=== PATIENT | male | born 1960 | race Caucasian/White ===

== ENCOUNTER 2016-10-30 08:34 | Observation (INO) | payer MEDICAID ==
[2016-10-30] MEDS ORDERED: FUROSEMIDE 40 MG/4 ML VIAL IVP STA (09:25)
[2016-10-30] MEDS ORDERED: FUROSEMIDE 40 MG/4 ML VIAL ONE (09:32)
[2016-10-30] MEDS ORDERED: IOPAMIDOL-300 100 ML VIAL IVP ONE (11:06)
[2016-10-30] MEDS ORDERED: ACETAMINOPHEN 325 MG TABLET PO PRN (13:54)
[2016-10-30] MEDS ORDERED: ONDANSETRON ODT 4 MG TABLET TL PRN (13:54)
[2016-10-30] MEDS ORDERED: ONDANSETRON 4 MG/2 ML VIAL IVP PRN (13:54)
[2016-10-30] MEDS: PANTOPRAZOLE 40 MG TABLET PO SCH (15:29)
[2016-10-30] MEDS: SODIUM CHLORIDE FLUSH 0.9% 10 ML SYRINGE IVP SCH ×2 (15:29→21:36)
[2016-10-30] MEDS: FUROSEMIDE 20 MG/2 ML VIAL IVP SCH (21:36)
[2016-10-30] MEDS: SPIRONOLACTONE 25 MG TABLET PO SCH (21:36)
[2016-10-31] MEDS: SODIUM CHLORIDE FLUSH 0.9% 10 ML SYRINGE IVP SCH ×3 (05:32→20:37)
[2016-10-31] MEDS: PANTOPRAZOLE 40 MG TABLET PO SCH (06:11)
[2016-10-31] MEDS: NADOLOL 20 MG TABLET PO SCH (08:31)
[2016-10-31] MEDS: POLYETHYLENE GLYCOL 3350 17 GM PACKET PO SCH (08:31)
[2016-10-31] MEDS: FUROSEMIDE 20 MG/2 ML VIAL IVP SCH ×2 (08:31→20:37)
[2016-10-31] MEDS: SPIRONOLACTONE 25 MG TABLET PO SCH ×2 (08:32→20:37)
[2016-10-31] MEDS: SODIUM CHLORIDE FLUSH 0.9% 10 ML SYRINGE IVP PRN (08:32)
[2016-10-31] MEDS: MORPHINE 2 MG/ML SYRINGE IVP PRN (21:53)
[2016-10-31] MEDS: HYDROcod/ACETAM 5/325 MG TABLET PO PRN (23:54)
[2016-11-01] MEDS: MORPHINE 2 MG/ML SYRINGE IVP PRN (02:17)
[2016-11-01] MEDS: SODIUM CHLORIDE FLUSH 0.9% 10 ML SYRINGE IVP PRN (02:18)
[2016-11-01] MEDS: SODIUM CHLORIDE FLUSH 0.9% 10 ML SYRINGE IVP SCH ×2 (06:02→08:20)
[2016-11-01] MEDS: HYDROcod/ACETAM 5/325 MG TABLET PO PRN (06:03)
[2016-11-01] MEDS: PANTOPRAZOLE 40 MG TABLET PO SCH (07:23)
[2016-11-01] MEDS: NADOLOL 20 MG TABLET PO SCH (08:18)
[2016-11-01] MEDS: SPIRONOLACTONE 25 MG TABLET PO SCH (08:19)
[2016-11-01] MEDS: FUROSEMIDE 20 MG/2 ML VIAL IVP SCH (08:20)
[2016-11-01] MEDS: POLYETHYLENE GLYCOL 3350 17 GM PACKET PO SCH (08:23)
== END 2016-11-01 09:40 | disposition home or self-care (01) ==
DX: R55 Syncope and collapse (principal); D50.0 Iron deficiency anemia secondary to blood loss (chronic); K70.31 Alcoholic cirrhosis of liver with ascites; I85.10 Secondary esophageal varices without bleeding; B19.20 Unspecified viral hepatitis C without hepatic coma; F10.20 Alcohol dependence, uncomplicated; I11.9 Hypertensive heart disease without heart failure; S80.11XD Contusion of right lower leg, subsequent encounter; V49.9XXD Car occupant (driver) (passenger) injured in unspecified traffic accident, subsequent encounter; E78.5 Hyperlipidemia, unspecified; M47.892 Other spondylosis, cervical region; F17.210 Nicotine dependence, cigarettes, uncomplicated; K40.90 Unilateral inguinal hernia, without obstruction or gangrene, not specified as recurrent; K42.9 Umbilical hernia without obstruction or gangrene; K57.30 Diverticulosis of large intestine without perforation or abscess without bleeding; Z79.899 Other long term (current) drug therapy
CPT/HCPCS: 36415; 36430; 71020; 74177; 80048; 80053; 83690; 83735; 83880; 84484; 85025; 85610; 85730; 86850; 86900; 86901; 86920; 93005; 93010; 93308; 96374; 96375; 96376; 99284; 99285; A9270; G0378; P9016; Q9967

== ENCOUNTER 2016-12-18 09:50 | Outpatient (CLI) | payer MEDICAID | END 2016-12-18 09:51 | disposition home or self-care (01) | DX: B19.20 Unspecified viral hepatitis C without hepatic coma (principal); I10 Essential (primary) hypertension; R60.0 Localized edema ==

== ENCOUNTER 2017-02-12 09:20 | Day surgery (SDC) | payer MEDICAID ==
[~2017-02-12 09:20] MED LIST: LACTATED RINGERS 1,000 ML IV ONE
--- NOTE | 2017-02-12 10:29 | HISTORY & PHYSICAL EXAMINATION ---
HPI - History of Present Illness HPI Comment/Other: Jero is here in consultation for screening colonoscopy. He has never had a prior colonoscopy. He has regular bowel movements and denies constipation or diarrhea. He had an episode of hematemesis and dark stools in 2014 and an upper endoscopy demonstrated bleeding esophageal varices. He was subsequently transferred to [facility]. He has not had a recurrance since but does continue to drink a 6 pack of beer daily and 2-4 shots of liquor 3-4 times per week. His lab work also demonstrated anemia with an H&H of 12 of her 37. He has never undergone alcohol withdrawal. He has no family history of colon cancer or colonic polyps. He also states he has a right inguinal hernia which is bothering him and has an umbilical hernia which occasionally pops out. Of note the patient does have hepatitis C and is not receiving treatment at this time as he is an active drinker. His most recent LFTs demonstrate mild transaminitis with a slightly elevated bilirubin. INR performed in October was 1.4. His MELD score is 11. He has no documented ascites and has never undergone paracentesis. Past Medical History: Reviewed history from 11/22/2016 and no changes required: Right inguinal hernia mild Hypertension. Hepatitis C Jax use. GERD. Cirrhosis. Esophageal varices Strrep pphargitis Tobacco COPD Past Surgical History: Reviewed history from 09/25/2016 and no changes required: Cervical fusion Family History Summary: Reviewed history Last on 12/21/2016 and no changes required:01/09/2017 Father (biol.) - Has Family History of Arthritis - Entered On: 09/25/2016 Father (biol.) - Has Family History of Diabetes - Entered On: 09/25/2016 Social History: Reviewed history from 12/21/2016 and no changes required: Alcohol Use - yes Smoking History: Patient is a former smoker. Quit 3-1/2 weeks ago Risk Factors: Smoked Tobacco Use: Former smoker Cigarettes: Yes -- 5 cigs pack(s) per day, Years smoked: 30 Smokeless Tobacco Use: Never Passive smoke exposure: no Drug use: no HIV high-risk behavior: no Caffeine use: 1 drinks per day Alcohol use: yes Type: beer Drinks per day: 4 Exercise: no Seatbelt use: 100 % Sun Exposure: occasionally Family History Risk Factors: Family History of FL in females < 65 years old: no Family History of FL in males < 55 years old: no Review of Systems See HPI Physical Exam General: well developed, well nourished, in no acute distress Lungs: clear bilaterally to A & P Heart: regular rate and rhythm, S1, S2 without murmurs, rubs, gallops, or clicks Abdomen: Protuberant. Moderate sized umbilical hernia is present and easily reducible. Genitalia: Fullness of right groin without obvious herniation palpable upon Valsalva. He does have tenderness of the area. Pulses: pulses normal in all 4 extremities Extremities: no clubbing, cyanosis, edema, or deformity noted with normal full range of motion of all joints Cervical Nodes: no significant adenopathy Psych: alert and cooperative; normal mood and affect; normal attention span and concentration Problems: Problems Added: 1) Dx of Screening, colon cancer ([id number]) (ICD-V76.51) Impression & Recommendations: Problem # 1: Screening for colon cancer I have explained the colonoscopy procedure to the patient in detail and the risks involved, including but not limited to bleeding, perforated viscus and missing lesions. The patient understands the above and has agreed to proceed with the procedure. Problem # 2: Tobacco use Patient counseled on smoking cessation however at this time he is unwilling to quit smoking. He has cut back. Problem # 3: Alcohol abuse Patient counseled on alcohol avoidance especially in the setting of his liver failure. He states he has cut back to some degree but is unwilling to quit drinking altogether. Problem # 4: Inguinal hernia Given his comorbidities I would not recommend pursuing any treatment for a possible inguinal hernia. On examination unable to palpate an obvious hernia and further imaging will be warranted if surgical intervention is necessary. At this time the hernia is not bothering him too much and I have recommended conservative management for such. Problem # 5: Umbilical hernia The patient does have a moderate sized umbilical hernia. If his liver failure advance is and ascites develops this can be problematic and is in the patient's best interest to have this repaired prior to development of complications from liver failure. I indicated to the patient that this can be discussed in further detail after his colonoscopy. PMH/PSH - Past Medical History Cardiovascular: positive: Hypertension Respiratory: positive: None Neuro: positive: None Endocrine/Autoimmune: positive: None GI: positive: None, Hepatitis : positive: None HEENT: positive: None Psych: positive: None Musculoskeletal: positive: None Derm: positive: None MRSA Hx?: No - Past Surgical History Ortho: positive: Carpal Tunnel surgery, Other Social & Family Hx - Social History Does the pt smoke?: Yes Smoking Status: Current every day smoker Does the pt drink ETOH?: Yes Does the pt have substance abuse?: No - POLST Patient has POLST: No Meds/Allgy - Home Medications Home Medications: Ambulatory Orders Medication Instructions Recorded Confirmed amLODIPine [Norvasc] 5 mg PO DAILY 10/30/16 02/12/17 Multivitamin [Multivitamins] 1 cap PO DAILY 10/31/16 02/12/17 Nadolol 40 mg PO DAILY 10/31/16 02/12/17 Omeprazole [PriLOSEC] 20 mg PO QDAC 10/31/16 02/12/17 Furosemide [Lasix] 40 mg PO DAILY #30 tablet 11/01/16 02/12/17 Spironolactone [Aldactone] 50 mg PO BID #60 tablet 11/01/16 02/12/17 - Allergies Allergies/Adverse Reactions: Allergies Allergy/AdvReac Type Severity Reaction Status Date / Time No Known Drug Allergies Allergy Verified 01/15/15 19:27 Exam - Vital Signs Vital Signs: Vital Signs x48h Temp Pulse Resp BP Pulse Ox 02/12/17 09:35 37 C 50 L 16 120/77 97
[2017-02-12] MEDS ORDERED: fentaNYL 100 MCG/2 ML VIAL IVP ONE (11:05)
[2017-02-12] MEDS ORDERED: MIDAZOLAM 2 MG/2 ML VIAL IVP ONE (11:05)
[2017-02-12 12:05] VITALS: BP 122/77
== END 2017-02-12 09:21 | disposition home or self-care (01) ==
LOC: SDS 09:20
PROVIDERS: ATTEND Surgery
PROC: 0DJD8ZZ Inspection of Lower Intestinal Tract, Via Natural or Artificial Opening Endoscopic (ICD-10-PCS; principal; 2017-02-12 10:30)
DX: Z12.11 Encounter for screening for malignant neoplasm of colon (principal); K64.8 Other hemorrhoids; D64.9 Anemia, unspecified; K40.90 Unilateral inguinal hernia, without obstruction or gangrene, not specified as recurrent; K42.9 Umbilical hernia without obstruction or gangrene; B19.20 Unspecified viral hepatitis C without hepatic coma; K74.60 Unspecified cirrhosis of liver; F17.210 Nicotine dependence, cigarettes, uncomplicated; F10.10 Alcohol abuse, uncomplicated; I10 Essential (primary) hypertension; K72.90 Hepatic failure, unspecified without coma; Z98.1 Arthrodesis status; Z82.61 Family history of arthritis; Z83.3 Family history of diabetes mellitus
CPT/HCPCS: 45378; J7120

== ENCOUNTER 2017-03-14 16:35 | Emergency (ER) | payer MEDICAID ==
[2017-03-14] MEDS ORDERED: SODIUM CHLORIDE 0.9% 1,000 ML IV ONE (17:31)
[2017-03-14 17:53] LABS: BASOPHILS # (AUTO) 0.1 10^3/uL (0.0-0.1); BASOPHILS % (AUTO) 1.4 %; EOSINOPHILS # (AUTO) 0.2 10^3/uL (0.0-0.7); EOSINOPHILS % (AUTO) 3.7 %; HCT - HEMATOCRIT 34.4 % (42.0-52.0); HGB - HEMOGLOBIN 11.5 g/dL (14.0-18.0); LYMPHOCYTES # (AUTO) 0.9 10^3/uL (1.5-3.5); MEAN CORPUSCULAR HEMOGLOBIN 30.3 pg (27.0-31.0); MEAN CORPUSCULAR HGB CONC 33.4 g/dL (32.0-36.0); MEAN CORPUSCULAR VOLUME 90.6 fL (80.0-94.0); MEAN PLATELET VOLUME 9.6 fL (7.4-11.4); MONOCYTES % (AUTO) 22.4 %; NEUTROPHILS # (AUTO) 2.4 10^3/uL (1.5-6.6); NEUTROPHILS % (AUTO) 52.5 %; NUCLEATED RED BLOOD CELLS AUTO 0.1 /100WBC; RED BLOOD COUNT 3.79 10^6/uL (4.70-6.10); RED CELL DISTRIBUTION WIDTH 17.7 % (12.0-15.0); UNCORRECTED WHITE BLOOD COUNT 4.5 x10^3/uL; WHITE BLOOD COUNT 4.5 x10^3/uL (4.8-10.8)
[2017-03-14 18:07] LABS: ALBUMIN/GLOBULIN RATIO 0.7 (1.0-2.2); BILIRUBIN,TOTAL 1.2 mg/dL (0.2-1.0); CALCIUM 8.5 mg/dL (8.5-10.3); CREATININE 0.6 mg/dL (0.6-1.2); INR 1.5 (0.8-1.2); POTASSIUM 3.8 mmol/L (3.5-5.0); PT - PROTHROMBIN TIME 16.7 secs (9.9-12.6); TOTAL PROTEIN 7.5 g/dL (6.7-8.2)
[2017-03-14 18:14] LABS: PARTIAL THROMBOPLASTIN TIME 34.1 secs (24.9-33.3)
--- NOTE | 2017-03-14 19:17 | ED Physician Documentation ---
PD HPI GI BLEED - Stated complaint Stated Complaint: MALE - Chief complaint Chief Complaint: Abd Pain - History obtained from History obtained from: Patient - History of Present Illness Timing - onset: Today Timing - duration: Days (1) Timing - details: Gradual onset Pain level max: 0 Pain level now: 0 Associated symptoms: Maroon stool, Black/tarry stool Contributing factors: No: Sick contact, Bad food, Travel, Recent antibiotics, Alcohol use, Aspirin use, NSAID use, Stress, Anticoagulated, Diabetes Improved by: Other (nothing) Worsened by: Other (nothing) Similar symptoms before: Other (history of esophageal varices.) Recently seen: Not recently seen Review of Systems Ten Systems: 10 systems reviewed and negative Constitutional: denies: Fever, Chills Ears: denies: Ear pain Nose: denies: Rhinorrhea / runny nose, Congestion Throat: denies: Sore throat Cardiac: denies: Chest pain / pressure Respiratory: denies: Cough GI: reports: Bloody / black stool. denies: Nausea, Vomiting, Diarrhea, Hematemesis : denies: Dysuria Skin: denies: Rash Musculoskeletal: denies: Neck pain, Back pain Neurologic: denies: Headache PD PAST MEDICAL HISTORY - Past Medical History Past Medical History: Yes Cardiovascular: Hypertension Respiratory: None Neuro: None Endocrine/Autoimmune: None GI: None, Esophageal varices, Hepatitis : None HEENT: None Psych: None Musculoskeletal: None Derm: None - Past Surgical History Past Surgical History: Yes Ortho: Carpal Tunnel surgery, Other - Present Medications Home Medications: Ambulatory Orders Medication Instructions Recorded Confirmed amLODIPine [Norvasc] 5 mg PO DAILY 10/30/16 03/14/17 Multivitamin [Multivitamins] 1 cap PO DAILY 10/31/16 03/14/17 Nadolol 40 mg PO DAILY 10/31/16 03/14/17 Omeprazole [PriLOSEC] 20 mg PO QDAC 10/31/16 03/14/17 - Allergies Allergies/Adverse Reactions: Allergies Allergy/AdvReac Type Severity Reaction Status Date / Time No Known Drug Allergies Allergy Verified 01/15/15 19:27 - Social History Does the pt smoke?: Yes Smoking Status: Current every day smoker Does the pt drink ETOH?: Yes Does the pt have substance abuse?: No - Immunizations Immunizations are current?: No - POLST Patient has POLST: No PD ED PE NORMAL - Vitals Vital signs reviewed: Yes - General General: Alert and oriented X 3, No acute distress, Well developed/nourished - HEENT HEENT: Moist mucous membranes, Pharynx benign - Neck Neck: Supple, no meningeal sign - Cardiac Cardiac: RRR, Strong equal pulses - Respiratory Respiratory: No respiratory distress, Clear bilaterally - Abdomen Abdomen: Soft, Non tender, Non distended - Rectal Rectal: Other (dark black stool. + hemoccult) - Derm Derm: Warm and dry - Extremities Extremities: No calf tenderness / cord - Neuro Neuro: Alert and oriented X 3 - Psych Psych: Normal mood, Normal affect Results - Vitals Vitals: Vital Signs - 24 hr 03/14/17 03/14/17 03/14/17 16:44 19:17 20:29 Temperature 36.8 C Heart Rate 108 H 81 72 Respiratory 20 17 16 Rate Blood Pressure 171/97 H 148/85 H 139/88 H O2 Saturation 98 97 98 03/14/17 03/14/17 03/14/17 21:28 21:40 21:43 Temperature 36.9 C 37.2 C Heart Rate 70 66 65 Respiratory 20 20 18 Rate Blood Pressure 145/91 H 145/88 H 140/91 H O2 Saturation 100 98 97 03/14/17 21:47 Temperature 37.1 C Heart Rate 65 Respiratory 18 Rate Blood Pressure 141/79 H O2 Saturation 97 Oxygen O2 Source Room air - Labs Labs: Laboratory Tests 03/14/17 03/14/17 03/14/17 17:37 17:37 17:37 WBC 4.5 L RBC 3.79 L Hgb 11.5 L Hct 34.4 L MCV 90.6 MCH 30.3 MCHC 33.4 RDW 17.7 H Plt Count 61 L MPV 9.6 Neut # 2.4 Lymph # 0.9 L [place] # 1.0 Eos # 0.2 Baso # 0.1 Absolute Nucleated RBC 0.00 Nucleated RBCs 0.1 PT 16.7 H INR 1.5 H APTT 34.1 H Sodium 138 Potassium 3.8 Chloride 107 Carbon Dioxide 23 Anion Gap 8.0 BUN 13 Creatinine 0.6 Estimated GFR (MDRD) 140 Glucose 92 Calcium 8.5 Total Bilirubin 1.2 H AST 138 H ALT 48 Alkaline Phosphatase 114 Total Protein 7.5 Albumin 3.0 L Globulin 4.5 H Albumin/Globulin Ratio 0.7 L Lipase 42 Blood Type Antibody Screen 03/14/17 17:37 WBC RBC Hgb Hct MCV MCH MCHC RDW Plt Count MPV Neut # Lymph # [place] # Eos # Baso # Absolute Nucleated RBC Nucleated RBCs PT INR APTT Sodium Potassium Chloride Carbon Dioxide Anion Gap BUN Creatinine Estimated GFR (MDRD) Glucose Calcium Total Bilirubin AST ALT Alkaline Phosphatase Total Protein Albumin Globulin Albumin/Globulin Ratio Lipase Blood Type A POSITIVE Antibody Screen NEGATIVE PD MEDICAL DECISION MAKING - ED course Complexity details: reviewed results, re-evaluated patient, considered differential, d/w patient, d/w telesales consultant ED course: 2039 - D/w GI Dr. Liudmila Newby who accepts in transfer. Recommends octreotide, rocephin, FFP. 2049 - Dr. German hospitalist who also accepts. Patient is a 56-year-old male who presents to the emergency department with a GI bleed, appears upper GI bleed likely variceal. Started on octreotide, given Protonix. Given Rocephin IV. Fresh frozen plasma 2 units transfused. No beds available at [facility] or at [facility]. Will transfer to [facility] in [place]. This document was made in part using voice recognition software. While efforts are made to proofread this document, sound alike and grammatical errors may occur. Departure - Departure Disposition: 02 Transfer Acute Care Hosp Clinical Impression: Alcoholism GI bleed Qualifiers: GI bleed type/associated pathology: unspecified gastrointestinal hemorrhage type Qualified Code(s): K92.2 - Gastrointestinal hemorrhage, unspecified Anemia Qualifiers: Anemia type: unspecified type Qualified Code(s): D64.9 - Anemia, unspecified Condition: Stable Discharge Date/Time: 03/14/17 22:46
[2017-03-14] MEDS ORDERED: OCTREOTIDE 500 MCG in SODIUM CHLORIDE 0.9% 100ML 95 ML IV STA (20:37)
[2017-03-14] MEDS ORDERED: PANTOPRAZOLE 40 MG VIAL IV STA (20:38)
[2017-03-14] MEDS ORDERED: cefTRIAXone 1 GM in SODIUM CHLORIDE 0.9% MINIBAG 100 ML IV STA (20:40)
[2017-03-14] MEDS ORDERED: PANTOPRAZOLE 40 MG VIAL ONE (20:46)
[2017-03-14] MEDS ORDERED: OCTREOTIDE 100 MCG/ML VIAL ONE (20:46)
[2017-03-14] MEDS ORDERED: cefTRIAXone 1 GM VIAL ONE (21:07)
[2017-03-14 21:48] VITALS: BP 141/79
== END 2017-03-14 22:46 | disposition short-term general hospital (02) ==
LOC: ED 16:35
DX: F10.20 Alcohol dependence, uncomplicated (principal); K92.2 Gastrointestinal hemorrhage, unspecified; D64.9 Anemia, unspecified; I10 Essential (primary) hypertension; K75.9 Inflammatory liver disease, unspecified; F17.200 Nicotine dependence, unspecified, uncomplicated
CPT/HCPCS: 36430; 80053; 83690; 85025; 85610; 85730; 86850; 86900; 86901; 96361; 96365; 96366; 96375; 99284; 99285; J2354; P9017

== ENCOUNTER 2017-03-14 22:06 | Outpatient (CLI) | payer MEDICAID | END 2017-03-14 22:07 | disposition short-term general hospital (02) | LOC: EMS 22:06 | PROVIDERS: ATTEND Surgery | DX: K92.2 Gastrointestinal hemorrhage, unspecified (principal) | CPT/HCPCS: A0425; A0426 ==

== ENCOUNTER 2017-04-25 09:02 | Outpatient (CLI) | payer MEDICAID ==
[2017-04-25 13:31] LABS: BASOPHILS # (AUTO) 0.1 10^3/uL (0.0-0.1); BASOPHILS % (AUTO) 1.8 %; EOSINOPHILS # (AUTO) 0.1 10^3/uL (0.0-0.7); EOSINOPHILS % (AUTO) 3.4 %; HCT - HEMATOCRIT 38.4 % (42.0-52.0); HGB - HEMOGLOBIN 12.7 g/dL (14.0-18.0); LYMPHOCYTES # (AUTO) 0.9 10^3/uL (1.5-3.5); LYMPHOCYTES % (AUTO) 21.6 %; MEAN CORPUSCULAR HEMOGLOBIN 29.7 pg (27.0-31.0); MEAN CORPUSCULAR VOLUME 90.1 fL (80.0-94.0); MEAN PLATELET VOLUME 10.7 fL (7.4-11.4); MONOCYTES # (AUTO) 0.7 10^3/uL (0.0-1.0); MONOCYTES % (AUTO) 17.5 %; NEUTROPHILS # (AUTO) 2.3 10^3/uL (1.5-6.6); NEUTROPHILS % (AUTO) 55.7 %; NUCLEATED RED BLOOD CELLS AUTO 0.2 /100WBC; RED BLOOD COUNT 4.26 10^6/uL (4.70-6.10); RED CELL DISTRIBUTION WIDTH 16.9 % (12.0-15.0); UNCORRECTED WHITE BLOOD COUNT 4.1 x10^3/uL; WHITE BLOOD COUNT 4.1 x10^3/uL (4.8-10.8)
[2017-04-25 13:36] LABS: INR 1.4 (0.8-1.2); PT - PROTHROMBIN TIME 15.3 secs (9.9-12.6)
[2017-04-25 13:50] LABS: ALBUMIN/GLOBULIN RATIO 0.7 (1.0-2.2); CALCIUM 8.5 mg/dL (8.5-10.3); CREATININE 0.7 mg/dL (0.6-1.2); POTASSIUM 4.1 mmol/L (3.5-5.0); TOTAL PROTEIN 7.9 g/dL (6.7-8.2)
== END 2017-04-25 09:03 | disposition home or self-care (01) ==
LOC: LAB.N 09:02
PROVIDERS: ATTEND Physician Assistant
DX: K70.31 Alcoholic cirrhosis of liver with ascites (principal)
CPT/HCPCS: 36415; 80053; 85025; 85610; 86317; 86708

== ENCOUNTER 2017-05-20 08:23 | Emergency (ER) | payer MEDICAID ==
--- NOTE | 2017-05-20 08:44 | ED Physician Documentation ---
PD HPI GI BLEED - Stated complaint Stated Complaint: MALE - Chief complaint Chief Complaint: Abd Pain - History obtained from History obtained from: Patient - History of Present Illness Timing - onset: Yesterday Timing - duration: Days (1) Timing - details: Gradual onset, Still present Associated symptoms: Maroon stool, Black/tarry stool Contributing factors: Alcohol use Improved by: Laying still Similar symptoms before: Diagnosis (varaceal bleeding) Recently seen: Transferred (2 months ago.) - Additional information Additional information: 56-year-old male with alcoholic cirrhosis and hepatitis C has a history of esophageal varices that have bled in the past. He developed dark tarry stool yesterday and this morning he has liquid maroon stool. He is not have any pain he has not had lightheadedness or dizziness. He has had variceal bleeding in February of this year requiring airlift to [place] and Dr. Melanie Newby has done banding as an outpatient on 05-09-17. The patient has continued to drink and he dose indicate he has been in treatment previously and this helped with sobriety for about 15 months. Review of Systems Constitutional: denies: Fever Eyes: denies: Decreased vision Ears: denies: Ear pain Nose: denies: Congestion Throat: denies: Sore throat Cardiac: denies: Chest pain / pressure, Palpitations Respiratory: denies: Dyspnea, Cough GI: reports: Bloody / black stool. denies: Abdominal Pain, Nausea, Vomiting, Constipation : denies: Dysuria, Frequency Skin: denies: Rash Musculoskeletal: denies: Neck pain, Back pain, Extremity pain PD PAST MEDICAL HISTORY - Past Medical History Past Medical History: Yes Cardiovascular: Hypertension Respiratory: None Neuro: None Endocrine/Autoimmune: None GI: None, Esophageal varices, Hepatitis : None HEENT: None Psych: None Musculoskeletal: None Derm: None - Past Surgical History Past Surgical History: Yes Ortho: Carpal Tunnel surgery, Other - Present Medications Home Medications: Ambulatory Orders Medication Instructions Recorded Confirmed amLODIPine [Norvasc] 5 mg PO DAILY 10/30/16 05/20/17 Multivitamin [Multivitamins] 1 cap PO DAILY 10/31/16 05/20/17 Nadolol 40 mg PO DAILY 10/31/16 05/20/17 Omeprazole [PriLOSEC] 20 mg PO QDAC 10/31/16 05/20/17 Sucralfate [Carafate] 05/20/17 - Allergies Allergies/Adverse Reactions: Allergies Allergy/AdvReac Type Severity Reaction Status Date / Time No Known Drug Allergies Allergy Verified 01/15/15 19:27 - Social History Does the pt smoke?: Yes Smoking Status: Current every day smoker Does the pt drink ETOH?: Yes Does the pt have substance abuse?: No - Immunizations Immunizations are current?: No - POLST Patient has POLST: No PD ED PE NORMAL - Vitals Vital signs reviewed: Yes (hypertensiev) - General General: Alert and oriented X 3, No acute distress, Well developed/nourished, Other (AOB) - HEENT HEENT: Atraumatic, PERRL - Neck Neck: Supple, no meningeal sign - Cardiac Cardiac: RRR, No murmur - Respiratory Respiratory: No respiratory distress, Clear bilaterally - Abdomen Abdomen: Soft, Non tender - Rectal Rectal: Other (rectal tone is normal stool is quiac +) - Back Back: No CVA TTP, No spinal TTP - Derm Derm: Normal color, Warm and dry, No rash - Extremities Extremities: No deformity, No edema - Neuro Neuro: Alert and oriented X 3, No motor deficit, No sensory deficit, Normal speech - Psych Psych: Normal mood, Normal affect Results - Vitals Vitals: Vital Signs - 24 hr 05/20/17 05/20/17 05/20/17 08:31 10:25 11:49 Temperature 37.0 C 37.1 C Heart Rate 73 63 61 Respiratory 18 13 16 Rate Blood Pressure 148/91 H 111/76 96/59 L O2 Saturation 97 97 95 Oxygen O2 Source Room air - Labs Labs: Laboratory Tests 05/20/17 05/20/17 05/20/17 09:04 09:04 09:04 WBC 4.1 L RBC 4.17 L Hgb 12.3 L Hct 36.8 L MCV 88.2 MCH 29.6 MCHC 33.5 RDW 18.1 H Plt Count 84 L MPV 9.6 Neut # 2.4 Lymph # 1.0 L [place] # 0.6 Eos # 0.1 Baso # 0.0 Absolute Nucleated RBC 0.00 Nucleated RBC % 0.1 PT 16.7 H INR 1.5 H Sodium 135 Potassium 4.0 Chloride 103 Carbon Dioxide 20 L Anion Gap 12.0 BUN 10 Creatinine 0.6 Estimated GFR (MDRD) 140 Glucose 159 H Calcium 8.5 Total Bilirubin 1.3 H AST 113 H ALT 47 Alkaline Phosphatase 83 Troponin I Total Protein 7.4 Albumin 3.0 L Globulin 4.4 H Albumin/Globulin Ratio 0.7 L Lipase 47 Ethyl Alcohol 22.6 Blood Type 05/20/17 05/20/17 09:04 09:16 WBC RBC Hgb Hct MCV MCH MCHC RDW Plt Count MPV Neut # Lymph # [place] # Eos # Baso # Absolute Nucleated RBC Nucleated RBC % PT INR Sodium Potassium Chloride Carbon Dioxide Anion Gap BUN Creatinine Estimated GFR (MDRD) Glucose Calcium Total Bilirubin AST ALT Alkaline Phosphatase Troponin I < 0.04 Total Protein Albumin Globulin Albumin/Globulin Ratio Lipase Ethyl Alcohol Blood Type A POSITIVE PD MEDICAL DECISION MAKING - ED course Complexity details: reviewed old records, reviewed results, re-evaluated patient , considered differential, d/w patient ED course: 56-year-old male with a history of alcoholic cirrhosis and variceal bleeding has presented to the emergency department today with black stool yesterday and maroon stool today. He does appear on initial evaluation to have a stable hematocrit and he is hemodynamically stable INR is 1.5. 2 IV lines are begun he is given intravenous Protonix and 1 unit of fresh frozen plasma. And an infusion of octreotide is begun.The patient will need transfer to a tertiary center and initially the certified medication technician at [facility] in [place] is consulted in the case after the case is reviewed with the cosmetologist apprentice who had previously scoped the patient they asked that we transfer this patient to a tertiary center as he may need a TIPS procedure. The [facility] was contacted they were boarding and unable to care for the patient expeditiously at this time and recommended to call [facility]. We did call [facility] and we were able to obtain a bed and the patient will be admitted under the care of Dr. Shirley Erazo. Departure - Departure Disposition: 02 Transfer Acute Care Hosp Clinical Impression: Esophageal varices with bleeding Qualifiers: Esophageal varices type: secondary Qualified Code(s): I85.11 - Secondary esophageal varices with bleeding Condition: Serious
[2017-05-20] MEDS ORDERED: PANTOPRAZOLE 40 MG VIAL IVP STA (08:54)
[2017-05-20] MEDS ORDERED: PANTOPRAZOLE 40 MG VIAL ONE (09:09)
[2017-05-20] MEDS ORDERED: SODIUM CHLORIDE FLUSH 0.9% 10 ML SYRINGE IVP ONE (09:10)
[2017-05-20 09:11] LABS: BASOPHILS % (AUTO) 0.9 %; EOSINOPHILS # (AUTO) 0.1 10^3/uL (0.0-0.7); EOSINOPHILS % (AUTO) 2.9 %; HCT - HEMATOCRIT 36.8 % (42.0-52.0); HGB - HEMOGLOBIN 12.3 g/dL (14.0-18.0); LYMPHOCYTES % (AUTO) 24.7 %; MEAN CORPUSCULAR HEMOGLOBIN 29.6 pg (27.0-31.0); MEAN CORPUSCULAR HGB CONC 33.5 g/dL (32.0-36.0); MEAN CORPUSCULAR VOLUME 88.2 fL (80.0-94.0); MEAN PLATELET VOLUME 9.6 fL (7.4-11.4); MONOCYTES # (AUTO) 0.6 10^3/uL (0.0-1.0); MONOCYTES % (AUTO) 13.4 %; NEUTROPHILS # (AUTO) 2.4 10^3/uL (1.5-6.6); NEUTROPHILS % (AUTO) 58.1 %; NUCLEATED RED BLOOD CELLS AUTO 0.1 /100WBC; RED BLOOD COUNT 4.17 10^6/uL (4.70-6.10); RED CELL DISTRIBUTION WIDTH 18.1 % (12.0-15.0); UNCORRECTED WHITE BLOOD COUNT 4.1 x10^3/uL; WHITE BLOOD COUNT 4.1 x10^3/uL (4.8-10.8)
[2017-05-20 09:21] LABS: INR 1.5 (0.8-1.2); PT - PROTHROMBIN TIME 16.7 secs (9.9-12.6)
[2017-05-20 09:23] LABS: ALBUMIN/GLOBULIN RATIO 0.7 (1.0-2.2); BILIRUBIN,TOTAL 1.3 mg/dL (0.2-1.0); CALCIUM 8.5 mg/dL (8.5-10.3); CREATININE 0.6 mg/dL (0.6-1.2); TOTAL PROTEIN 7.4 g/dL (6.7-8.2)
[2017-05-20] MEDS ORDERED: OCTREOTIDE 500 MCG in SODIUM CHLORIDE 0.9% 100ML 95 ML IV STA (13:03)
[2017-05-20] MEDS ORDERED: OCTREOTIDE 100 MCG/ML VIAL ONE (13:16)
[2017-05-20] MEDS ORDERED: LORazepam 2 MG/ML SYRINGE IVP STA (14:39)
[2017-05-20] MEDS ORDERED: LORazepam 2 MG/ML SYRINGE ONE (14:44)
[2017-05-20 14:46] VITALS: BP 135/85
== END 2017-05-20 15:12 | disposition short-term general hospital (02) ==
LOC: ED 08:23
DX: K70.30 Alcoholic cirrhosis of liver without ascites (principal); I85.11 Secondary esophageal varices with bleeding; B19.20 Unspecified viral hepatitis C without hepatic coma; I10 Essential (primary) hypertension; F17.200 Nicotine dependence, unspecified, uncomplicated
CPT/HCPCS: 36415; 36430; 80053; 80320; 83690; 84484; 85025; 85610; 86900; 86901; 96365; 96375; 99284; 99285; J2060; J2354; P9017; 86850

== ENCOUNTER 2017-05-20 14:50 | Outpatient (CLI) | payer MEDICAID | END 2017-05-20 14:51 | disposition short-term general hospital (02) | LOC: EMS 14:50 | PROVIDERS: ATTEND Surgery | DX: I85.01 Esophageal varices with bleeding (principal) | CPT/HCPCS: A0170; A0425; A0426 ==

== ENCOUNTER 2017-05-31 18:43 | Emergency (ER) | payer MEDICAID ==
[2017-05-31] MEDS ORDERED: OCTREOTIDE 100 MCG/ML VIAL IVP STA (18:55)
[2017-05-31] MEDS ORDERED: PANTOPRAZOLE 40 MG VIAL IVP STA (18:55)
[2017-05-31] MEDS ORDERED: PANTOPRAZOLE 80 MG in SODIUM CHLORIDE 0.9% 100ML 100 ML IV STA (18:55)
[2017-05-31] MEDS ORDERED: OCTREOTIDE 500 MCG in SODIUM CHLORIDE 0.9% 100ML 95 ML IV STA (18:55)
[2017-05-31] MEDS ORDERED: cefTRIAXone 1 GM in SODIUM CHLORIDE 0.9% MINIBAG 100 ML IV STA (18:55)
--- NOTE | 2017-05-31 18:57 | ED Physician Documentation ---
PD HPI GI BLEED - Stated complaint Stated Complaint: MALE - History obtained from History obtained from: Patient - History of Present Illness Timing - onset: Other (56-year-old gentleman with history of alcohol abuse was transferred to [facility] a few weeks ago where he was found to have varices and was banded. Just prior to arrival he started to feel very lightheaded and in the waiting room started to have gross hematemesis.) Review of Systems Ten Systems: 10 systems reviewed and negative Constitutional: reports: Reviewed and negative Cardiac: denies: Chest pain / pressure, Palpitations Respiratory: denies: Dyspnea, Cough PD PAST MEDICAL HISTORY - Past Medical History Cardiovascular: Hypertension Respiratory: None Neuro: None Endocrine/Autoimmune: None GI: None, Esophageal varices, Hepatitis : None HEENT: None Psych: None Musculoskeletal: None Derm: None - Past Surgical History Past Surgical History: Yes Ortho: Carpal Tunnel surgery, Other - Present Medications Home Medications: Ambulatory Orders Medication Instructions Recorded Confirmed amLODIPine [Norvasc] 5 mg PO DAILY 10/30/16 05/20/17 Multivitamin [Multivitamins] 1 cap PO DAILY 10/31/16 05/20/17 Nadolol 40 mg PO DAILY 10/31/16 05/20/17 Omeprazole [PriLOSEC] 20 mg PO QDAC 10/31/16 05/20/17 Sucralfate [Carafate] 05/20/17 - Allergies Allergies/Adverse Reactions: Allergies Allergy/AdvReac Type Severity Reaction Status Date / Time No Known Drug Allergies Allergy Verified 01/15/15 19:27 - Social History Does the pt smoke?: Yes Smoking Status: Current every day smoker Does the pt drink ETOH?: Yes Does the pt have substance abuse?: No - Family History Family history: reports: Non contributory - Immunizations Immunizations are current?: No - POLST Patient has POLST: No PD ED PE NORMAL - Vitals Vital signs reviewed: Yes - General General: Alert and oriented X 3, Other (Actively vomiting large amounts of blood ) - HEENT HEENT: PERRL, EOMI - Neck Neck: Supple, no meningeal sign, No bony TTP - Cardiac Cardiac: RRR, No murmur - Respiratory Respiratory: No respiratory distress, Clear bilaterally - Abdomen Abdomen: Soft, Non tender - Derm Derm: Normal color, Warm and dry - Extremities Extremities: No deformity, No tenderness to palpate - Neuro Neuro: Alert and oriented X 3, Normal speech - Psych Psych: Normal mood, Normal affect Results - Vitals Vitals: Vital Signs - 24 hr 05/31/17 05/31/17 18:45 18:46 Temperature 36.4 C L Heart Rate 66 Respiratory 24 Rate Blood Pressure 100/44 L O2 Saturation 100 Oxygen O2 Source Room air - EKG (time done) 1917 Rate: Rate (enter#) (75) Rhythm: NSR [place]: Normal Intervals: Normal LA Ischemia: Non specific changes Computer interpretation: Agree with computer - Labs Labs: Laboratory Tests 05/31/17 05/31/17 05/31/17 18:59 18:59 18:59 WBC 6.5 RBC 3.54 L Hgb 10.6 L Hct 32.3 L MCV 91.0 MCH 29.9 MCHC 32.8 RDW 18.9 H Plt Count 141 MPV 9.8 Neut # 4.0 Lymph # 1.6 [place] # 0.6 Eos # 0.2 Baso # 0.1 Absolute Nucleated RBC 0.00 Nucleated RBC % 0.0 PT 16.4 H INR 1.4 H APTT 32.4 Sodium 135 Potassium 4.4 Chloride 101 Carbon Dioxide 23 Anion Gap 11.0 BUN 11 Creatinine 0.7 Estimated GFR (MDRD) 118 Glucose 108 H Calcium 8.1 L Magnesium 2.1 Total Bilirubin 1.2 H AST 110 H ALT 41 Alkaline Phosphatase 89 Troponin I Total Protein 7.1 Albumin 2.8 L Globulin 4.3 H Albumin/Globulin Ratio 0.7 L Lipase 51 Ethyl Alcohol 48.0 05/31/17 18:59 WBC RBC Hgb Hct MCV MCH MCHC RDW Plt Count MPV Neut # Lymph # [place] # Eos # Baso # Absolute Nucleated RBC Nucleated RBC % PT INR APTT Sodium Potassium Chloride Carbon Dioxide Anion Gap BUN Creatinine Estimated GFR (MDRD) Glucose Calcium Magnesium Total Bilirubin AST ALT Alkaline Phosphatase Troponin I < 0.04 Total Protein Albumin Globulin Albumin/Globulin Ratio Lipase Ethyl Alcohol PD MEDICAL DECISION MAKING - ED course ED course: 56-year-old gentleman with known varices presents with weakness and gross hematemesis with what I estimate is probably 1.5 L of hematemesis while in the emergency department. This is presumed to be a variceal GI bleed given his history and he was started on octreotide, Protonix, he was given Rocephin, and blood was readied. Given the large volume of hematemesis and soft blood pressures he will be transfused 1 unit of PRBCs prior to transport despite the reassuring H&H. He was accepted by Dr. Petty at [facility] at 7:25 PM. We had tried [facility] prior to this but they were full. Departure - Departure Disposition: 02 Transfer Acute Care Hosp Clinical Impression: Esophageal varices with bleeding Qualifiers: Esophageal varices type: secondary Qualified Code(s): I85.11 - Secondary esophageal varices with bleeding GI bleed Qualifiers: GI bleed type/associated pathology: unspecified gastrointestinal hemorrhage type Qualified Code(s): K92.2 - Gastrointestinal hemorrhage, unspecified Condition: Critical
[2017-05-31 19:06] LABS: BASOPHILS # (AUTO) 0.1 10^3/uL (0.0-0.1); BASOPHILS % (AUTO) 1.8 %; EOSINOPHILS # (AUTO) 0.2 10^3/uL (0.0-0.7); EOSINOPHILS % (AUTO) 2.3 %; HCT - HEMATOCRIT 32.3 % (42.0-52.0); HGB - HEMOGLOBIN 10.6 g/dL (14.0-18.0); LYMPHOCYTES # (AUTO) 1.6 10^3/uL (1.5-3.5); LYMPHOCYTES % (AUTO) 24.2 %; MEAN CORPUSCULAR HEMOGLOBIN 29.9 pg (27.0-31.0); MEAN CORPUSCULAR HGB CONC 32.8 g/dL (32.0-36.0); MEAN PLATELET VOLUME 9.8 fL (7.4-11.4); MONOCYTES # (AUTO) 0.6 10^3/uL (0.0-1.0); MONOCYTES % (AUTO) 9.6 %; NEUTROPHILS % (AUTO) 62.1 %; RED BLOOD COUNT 3.54 10^6/uL (4.70-6.10); RED CELL DISTRIBUTION WIDTH 18.9 % (12.0-15.0); UNCORRECTED WHITE BLOOD COUNT 6.5 x10^3/uL; WHITE BLOOD COUNT 6.5 x10^3/uL (4.8-10.8)
[2017-05-31] MEDS ORDERED: cefTRIAXone 1 GM VIAL ONE (19:10)
[2017-05-31] MEDS ORDERED: PANTOPRAZOLE 40 MG VIAL ONE (19:10)
[2017-05-31 19:13] LABS: INR 1.4 (0.8-1.2); PT - PROTHROMBIN TIME 16.4 secs (9.9-12.6)
[2017-05-31] MEDS ORDERED: OCTREOTIDE 100 MCG/ML VIAL ONE ×2 (19:13→19:23)
[2017-05-31 19:19] LABS: ALBUMIN/GLOBULIN RATIO 0.7 (1.0-2.2); BILIRUBIN,TOTAL 1.2 mg/dL (0.2-1.0); CALCIUM 8.1 mg/dL (8.5-10.3); CREATININE 0.7 mg/dL (0.6-1.2); MAGNESIUM 2.1 mg/dL (1.7-2.8); POTASSIUM 4.4 mmol/L (3.5-5.0); TOTAL PROTEIN 7.1 g/dL (6.7-8.2)
[2017-05-31 19:20] LABS: PARTIAL THROMBOPLASTIN TIME 32.4 secs (24.9-33.3)
[2017-05-31 20:42] VITALS: BP 103/69
== END 2017-05-31 20:42 | disposition short-term general hospital (02) ==
LOC: ED 18:43
DX: K75.9 Inflammatory liver disease, unspecified (principal); I85.11 Secondary esophageal varices with bleeding; F10.10 Alcohol abuse, uncomplicated; I10 Essential (primary) hypertension; F17.200 Nicotine dependence, unspecified, uncomplicated
CPT/HCPCS: 36415; 36430; 80053; 80320; 83690; 83735; 84484; 85025; 85610; 85730; 86850; 86900; 86901; 86920; 93005; 96365; 96368; 96375; 99284; 99285; J2354; P9016; 87086

== ENCOUNTER 2017-06-21 09:54 | Outpatient (CLI) | payer MEDICAID ==
[2017-06-21 19:06] LABS: EOSINOPHILS # (AUTO) 0.1 10^3/uL (0.0-0.7); EOSINOPHILS % (AUTO) 3.7 %; HCT - HEMATOCRIT 34.5 % (42.0-52.0); LYMPHOCYTES # (AUTO) 0.9 10^3/uL (1.5-3.5); LYMPHOCYTES % (AUTO) 22.5 %; MEAN CORPUSCULAR HEMOGLOBIN 28.3 pg (27.0-31.0); MEAN CORPUSCULAR HGB CONC 31.8 g/dL (32.0-36.0); MEAN CORPUSCULAR VOLUME 89.2 fL (80.0-94.0); MEAN PLATELET VOLUME 10.4 fL (7.4-11.4); MONOCYTES # (AUTO) 0.7 10^3/uL (0.0-1.0); MONOCYTES % (AUTO) 17.7 %; NEUTROPHILS # (AUTO) 2.2 10^3/uL (1.5-6.6); NEUTROPHILS % (AUTO) 55.1 %; NUCLEATED RED BLOOD CELLS AUTO 0.1 /100WBC; RED BLOOD COUNT 3.86 10^6/uL (4.70-6.10); RED CELL DISTRIBUTION WIDTH 19.7 % (12.0-15.0)
[2017-06-21 19:18] LABS: ALBUMIN/GLOBULIN RATIO 0.7 (1.0-2.2); BILIRUBIN,TOTAL 1.1 mg/dL (0.2-1.0); CALCIUM 8.6 mg/dL (8.5-10.3); CREATININE 0.7 mg/dL (0.6-1.2); TOTAL PROTEIN 7.6 g/dL (6.7-8.2)
[2017-06-22 15:52] LABS: TEST RESULT REPORT
== END 2017-06-21 09:55 | disposition home or self-care (01) ==
LOC: LAB.N 09:54
PROVIDERS: ATTEND Nurse Practitioner Gerontology
DX: B18.2 Chronic viral hepatitis C (principal); D64.9 Anemia, unspecified
CPT/HCPCS: 36415; 80053; 81599; 85025; 86705; 87389; 87522; 87902

== ENCOUNTER 2018-01-29 08:21 | Day surgery (SDC) | payer MEDICAID ==
[2018-01-29] MEDS ORDERED: LACTATED RINGERS 1,000 ML IV ONE ×2 (08:42→11:17)
[2018-01-29] MEDS ORDERED: ceFAZolin 2 GM/50 ML 2 GM/50 ML BAG IV ONE (09:19)
[2018-01-29 09:46] LABS: BASOPHILS % (AUTO) 1.1 %; EOSINOPHILS # (AUTO) 0.1 10^3/uL (0.0-0.7); EOSINOPHILS % (AUTO) 3.5 %; HGB - HEMOGLOBIN 11.9 g/dL (14.0-18.0); LYMPHOCYTES # (AUTO) 0.6 10^3/uL (1.5-3.5); MEAN CORPUSCULAR HEMOGLOBIN 29.9 pg (27.0-31.0); MEAN CORPUSCULAR HGB CONC 32.8 g/dL (32.0-36.0); MEAN CORPUSCULAR VOLUME 91.2 fL (80.0-94.0); MEAN PLATELET VOLUME 10.7 fL (7.4-11.4); MONOCYTES # (AUTO) 0.8 10^3/uL (0.0-1.0); MONOCYTES % (AUTO) 21.1 %; NEUTROPHILS # (AUTO) 2.2 10^3/uL (1.5-6.6); NEUTROPHILS % (AUTO) 59.3 %; PLT - PLATELET COUNT 79 10^3/uL (130-450); RED BLOOD COUNT 3.98 10^6/uL (4.70-6.10); RED CELL DISTRIBUTION WIDTH 18.6 % (12.0-15.0); WHITE BLOOD COUNT 3.7 x10^3/uL (4.8-10.8)
[2018-01-29 09:55] LABS: INR 1.4 (0.8-1.2)
[2018-01-29 09:57] LABS: ALBUMIN 2.5 g/dL (3.2-5.5); ALBUMIN/GLOBULIN RATIO 0.5 (1.0-2.2); BILIRUBIN,TOTAL 2.4 mg/dL (0.2-1.0); CALCIUM 8.1 mg/dL (8.5-10.3); CREATININE 0.5 mg/dL (0.6-1.2); TOTAL PROTEIN 7.2 g/dL (6.7-8.2)
[2018-01-29] MEDS ORDERED: BUPIVACAINE 0.5% PF 10 ML VIAL ONE (10:23)
[2018-01-29] MEDS ORDERED: DEXAMETHASONE 4 MG/ML VIAL IVP ONE (11:00)
[2018-01-29] MEDS ORDERED: MIDAZOLAM 2 MG/2 ML VIAL IVP ONE (11:00)
[2018-01-29] MEDS ORDERED: LIDOCAINE-MPF 2% 5 ML VIAL IM ONE (11:00)
[2018-01-29] MEDS ORDERED: PROPOFOL 200 MG/20 ML VIAL IVP ONE (11:00)
[2018-01-29] MEDS ORDERED: fentaNYL 100 MCG/2 ML VIAL IVP ONE (11:00)
[2018-01-29] MEDS ORDERED: ONDANSETRON 4 MG/2 ML VIAL IVP ONE (11:00)
[2018-01-29] MEDS ORDERED: BUPIVACAINE 0.5% PF 10 ML VIAL SUBQ ONE (11:15)
--- NOTE | 2018-01-29 11:55 | OPERATIVE REPORT ---
Operative Report - General Procedure Date: 01/29/18 Planned Procedure: Umbilical herniorrhaphy Pre-Op Diagnosis: Umbilical hernia Procedure Performed: Umbilical herniorrhaphy with mesh Post Op Diagnosis: Umbilical hernia - Procedure Note Primary Surgeon: Caesar Rivera MD Anesthesia Provider: Graeme Aguirre CRNA Anesthesia Technique: Local (30 mL 1/2% marcaine), MAC IV Fluids (mL): 1,000 Estimated Blood Loss (mL): 5 Complications: None. - Other Other Information/Narrative: OPERATIVE DESCRIPTION/REPORT: After verbal and written informed consent was obtained detailing the risks of infection, bleeding requiring transfusion with its risks, nerve injury, and , and after I met with the patient confirming the surgery and the site of the surgery, the patient was brought to the operative suite and placed supine on the operating table. Great care was taken to avoid pressure points to prevent pressure necrosis or nerve injury. Monitoring devices were applied along with TEDs and pneumatic compressive stockings (to prevent DVT). The patient received preoperative antibiotics for surgical prophylaxis. Graeme Aguirre CRNA sedated and anesthetized the patient for the entire procedure. The patient was prepped and draped in the usual sterile manner. With the patient draped my initials were clearly visible. A "time in" then confirmed that the paitient was identified with 3 identifiers (name, birthdate and medical record number), the history and physical was in the chart, the signed consent confirming the procedure was in the chart, the patient was in the correct position, the aforementioned prophylactic measures were in place or given, we had the correct personel and equipment to complete the procedure and that anesthesia, surgery and nursing were given an opportunuty to express any concerns. With the agreement of everyone in the room, we proceeded with the operation. After injecting the area with 1/2% marcaine, a standard curvilinear umbilical incision was made and dissection was carried down to the hernia sac using a combination of Metzenbaum scissors and Bovie electrocautery. The sac was cleared of overlying adherent tissue, and the fascial defect was delineated. The fascia was cleared of any adherent tissue for a distance 1.5 cm from the defect. The sac was placed back into the abdomen. The defect was closed using an [address] hernia patch (Ref#[id number], Lot#[id number], use by date 08-16) and suturing it superiorly and inferiorly using the straps with 0 PDS. Laterally it was also sewn in with 0 PDS but of course there were no straps. The fascia was then closed over the mesh using 0 PDS in an interrupted manner. The patient was then given an ``innie by suturing the back of the umbilicus to the fascia using a 2-0 Vicryl. The reason the peritoneum was left intact was to minimize the leak of any abdominal contents (ascites). In this manner there is peritoneum between the mesh and the abdominal contents. Meticulous hemostasis was obtained using Bovie electrocautery. The skin incision was approximated with a running 4-0 Monocryl. At this point a time out was performed that confirmed that all the counts were correct, the procedure that was performed, the blood loss, the urine output, the IV fluids administered , and the patients condition. Having tolerated the procedure well, the patient was subsequently taken to PACU and then short stay in good and stable condition.
[2018-01-29 12:47] VITALS: BP 152/95
[2018-01-29] MEDS ORDERED: oxyCOD/ACETAMIN 5 MG/325 MG TABLET PO ONE (12:50)
== END 2018-01-29 08:22 | disposition home or self-care (01) ==
LOC: SDS 08:21
PROVIDERS: ATTEND Surgery
PROC: 0WUF0JZ Supplement Abdominal Wall with Synthetic Substitute, Open Approach (ICD-10-PCS; principal; 2018-01-29 09:45)
DX: K42.9 Umbilical hernia without obstruction or gangrene (principal); I10 Essential (primary) hypertension; K21.9 Gastro-esophageal reflux disease without esophagitis; J44.9 Chronic obstructive pulmonary disease, unspecified; F17.210 Nicotine dependence, cigarettes, uncomplicated
CPT/HCPCS: 36415; 49585; 80053; 85025; 85610; 85730; A9270; C1781; J0690; J7120

== ENCOUNTER 2018-02-14 08:15 | Outpatient (CLI) | payer MEDICAID ==
--- NOTE | 2018-02-14 09:39 | Ultrasound Report ---
Procedure Date: 02/14/2018 Accession Number: [id number] / [id number] Procedure: US - Abdomen Limited CPT Code: FULL RESULT: EXAM: Abdomen Limited DATE: 02/14/2018 9:31 AM CLINICAL HISTORY: ALCOHOLIC CIRRHOSIS OF LIVER,CHRONIC HEPATITIS C COMPARISON: CT 10/30/2016 TECHNIQUE: Real-time scanning was performed with static images obtained. FINDINGS: The liver measures 19 cm. Hepatic echogenicity is heterogeneous, with nodular contour, compatible with cirrhosis. No focal parenchymal lesion or intrahepatic biliary dilatation is present. The gallbladder is unremarkable. The common bile duct measures 6 mm. The right kidney measures 10 cm, and demonstrates no hydronephrosis. Trace perihepatic ascites is present. IMPRESSION: Cirrhotic liver. Trace ascites. No evidence of cholelithiasis or biliary obstruction. No focal liver lesion. RADIA
== END 2018-02-14 08:16 | disposition home or self-care (01) ==
LOC: DI 08:15
PROVIDERS: ATTEND Nurse Anesthetist, Certified Registered
DX: K70.31 Alcoholic cirrhosis of liver with ascites (principal); B18.2 Chronic viral hepatitis C
CPT/HCPCS: 76705

== ENCOUNTER 2019-04-25 05:22 | Emergency (ER) | payer SELFPAY ==
[2019-04-25] MEDS ORDERED: ONDANSETRON 4 MG/2 ML VIAL IVP STA (05:43)
[2019-04-25] MEDS ORDERED: MORPHINE 10 MG/ML VIAL IVP STA (05:44)
[2019-04-25] MEDS ORDERED: FUROSEMIDE 40 MG/4 ML VIAL IVP STA (05:44)
[2019-04-25 06:31] LABS: BASOPHILS # (AUTO) 0.1 10^3/uL (0.0-0.1); BASOPHILS % (AUTO) 1.6 %; EOSINOPHILS # (AUTO) 0.1 10^3/uL (0.0-0.7); EOSINOPHILS % (AUTO) 2.9 %; HGB - HEMOGLOBIN 11.3 g/dL (14.0-18.0); LYMPHOCYTES # (AUTO) 0.6 10^3/uL (1.5-3.5); LYMPHOCYTES % (AUTO) 17.6 %; MEAN CORPUSCULAR HGB CONC 33.6 g/dL (32.0-36.0); MEAN CORPUSCULAR VOLUME 80.4 fL (80.0-94.0); MEAN PLATELET VOLUME 11.9 fL (7.4-11.4); MONOCYTES # (AUTO) 0.6 10^3/uL (0.0-1.0); MONOCYTES % (AUTO) 20.4 %; NEUTROPHILS # (AUTO) 1.8 10^3/uL (1.5-6.6); NEUTROPHILS % (AUTO) 57.2 %; PLT - PLATELET COUNT 92 10^3/uL (130-450); RED BLOOD COUNT 4.18 10^6/uL (4.70-6.10); RED CELL DISTRIBUTION WIDTH 20.4 % (12.0-15.0); WHITE BLOOD COUNT 3.1 x10^3/uL (4.8-10.8)
[2019-04-25] MEDS ORDERED: IOVERSOL 320 100 ML VIAL IVP ONE ×2 (06:33→07:34)
[2019-04-25 06:38] LABS: INR 1.6 (0.8-1.2); PT - PROTHROMBIN TIME 18.1 secs (9.9-12.6)
[2019-04-25 06:45] LABS: PARTIAL THROMBOPLASTIN TIME 32.9 secs (24.9-33.3)
[2019-04-25 06:48] LABS: PLATELET ESTIMATE, MANUAL DECREASED (<130,000) (NORMAL)
[2019-04-25 06:55] LABS: ALBUMIN 2.6 g/dL (3.2-5.5); ALBUMIN/GLOBULIN RATIO 0.5 (1.0-2.2); ALKALINE PHOSPHATASE 81 IU/L (42-121); ALT ALANINE AMINOTRANSFERASE 26 IU/L (10-60); AST ASPARTATE AMINOTRANSFERASE 85 IU/L (10-42); BILIRUBIN,TOTAL 2.7 mg/dL (0.2-1.0); BUN - BLOOD UREA NITROGEN 8 mg/dL (6-20); CALCIUM 8.2 mg/dL (8.5-10.3); CARBON DIOXIDE - CO2 25 mmol/L (21-32); CHLORIDE 100 mmol/L (101-111); CREATININE 0.8 mg/dL (0.6-1.2); GFR - MDRD 100 (>89); GLUCOSE 110 mg/dL (70-100); LIPASE 49 U/L (22-51); MAGNESIUM 1.9 mg/dL (1.7-2.8); SODIUM 135 mmol/L (135-145); TOTAL PROTEIN 7.7 g/dL (6.7-8.2)
[2019-04-25] MEDS ORDERED: LORazepam 2 MG/ML VIAL IVP STA (07:09)
--- NOTE | 2019-04-25 07:34 | ED Physician Documentation ---
PD HPI ABD PAIN - Stated complaint Stated Complaint: SOA/SIDE PX - Chief complaint Chief Complaint: General - History obtained from History obtained from: Patient, EMS - History of Present Illness Timing - onset: How many weeks ago (1) Timing - duration: Weeks (1) Timing - details: Abrupt onset (He states he typically has some moderate abdominal fullness related to liver cirrhosis and ascites. However he noted onset of left upper quadrant pain when he turned and twisted getting out of his car a week ago and since then has noticed considerable increase in pain and distention of his abdomen. He continues to drink regularly. He denies any easy bruising. He does have history of the ascites in the past but states he is never been as distended as he is right now. He is not currently on any diuretics or such having not been taking any for several months as he ran out of medicines.) Quality: Cramping, Aching, Pain Location: All over / everywhere, LUQ Radiation: Left flank. No: Chest Improved by: Laying still Worsened by: Eating, Moving, Position (lying flat causes more dyspnea) Associated symptoms: No: Fever, Nausea, Vomiting, Diarrhea, Dysuria Similar symptoms before: Diagnosis (Liver cirrhosis with ascites but has not been as bad as this in the past) Recently seen: Not recently seen Review of Systems Constitutional: denies: Fever, Chills, Myalgias Nose: denies: Rhinorrhea / runny nose, Congestion Throat: denies: Sore throat Respiratory: reports: Dyspnea. denies: Cough GI: reports: Abdominal Pain, Abdominal Swelling. denies: Vomiting, Constipation, Diarrhea Skin: denies: Rash, Lesions Neurologic: reports: Generalized weakness. denies: Focal weakness, Numbness Endocrine: reports: Weight gain. denies: Easy bruising / bleeding Immunocompromised: denies: Immunocompromised PD PAST MEDICAL HISTORY - Past Medical History Past Medical History: Yes Cardiovascular: Hypertension Respiratory: None Endocrine/Autoimmune: None GI: None, Esophageal varices, Hepatitis : None HEENT: None Psych: None Musculoskeletal: None Derm: None - Past Surgical History Past Surgical History: Yes Ortho: Carpal Tunnel surgery, Other - Present Medications Home Medications: Ambulatory Orders Medication Instructions Recorded Confirmed Multivitamin [Multivitamins] 1 cap PO DAILY 10/31/16 01/28/18 Nadolol 40 mg PO DAILY 03/14/17 06/11/18 Omeprazole [PriLOSEC] 20 mg PO QDAC 10/31/16 01/28/18 Furosemide 20 mg PO DAILY #30 tablet 04/25/19 Oxycodone HCl 5 mg PO Q6H PRN #25 tablet 04/25/19 Spironolactone 50 mg PO DAILY #30 tablet 04/25/19 - Allergies Allergies/Adverse Reactions: Allergies Allergy/AdvReac Type Severity Reaction Status Date / Time No Known Drug Allergies Allergy Verified 04/25/19 05:32 - Social History Does the pt smoke?: Yes Smoking Status: Current every day smoker Does the pt drink ETOH?: Yes Does the pt have substance abuse?: No - Immunizations Immunizations are current?: No - POLST Patient has POLST: No PD ED PE NORMAL - Vitals Vital signs reviewed: Yes - General General: Alert and oriented X 3, No acute distress, Well developed/nourished - HEENT HEENT: Pharynx benign - Neck Neck: Supple, no meningeal sign, No adenopathy - Cardiac Cardiac: RRR, No murmur - Respiratory Respiratory: Clear bilaterally - Abdomen Abdomen: Other (significantly distended and tense, with tenderness diffusely but mostly LUQ. ). No: Normal bowel sounds (diminished) - Back Back: No CVA TTP - Derm Derm: Normal color, Warm and dry - Extremities Extremities: Normal ROM s pain, No calf tenderness / cord, Other (1+ edema in both legs. ) - Neuro Neuro: Alert and oriented X 3, No motor deficit, Normal speech Results - Vitals Vitals: Vital Signs - 24 hr 04/25/19 04/25/19 04/25/19 05:27 05:34 06:16 Temperature 36.7 C Heart Rate 95 86 77 Respiratory 20 19 19 Rate Blood Pressure 159/126 H 147/97 H 137/98 H O2 Saturation 97 96 97 04/25/19 04/25/19 07:03 07:41 Temperature Heart Rate 68 67 Respiratory 19 18 Rate Blood Pressure 137/99 H 140/91 H O2 Saturation 94 95 Oxygen O2 Source Room air - Labs Labs: Laboratory Tests 04/25/19 04/25/19 04/25/19 06:12 06:12 06:40 WBC 3.1 L RBC 4.18 L Hgb 11.3 L Hct 33.6 L MCV 80.4 MCH 27.0 MCHC 33.6 RDW 20.4 H Plt Count 92 L MPV 11.9 H Neut # (Auto) 1.8 Lymph # (Auto) 0.6 L [place] # (Auto) 0.6 Eos # (Auto) 0.1 Baso # (Auto) 0.1 Absolute Nucleated RBC 0.00 Nucleated RBC % 0.0 Manual Slide Review Indicated Platelet Estimate DECREASED (<130,000) RBC Morph Micro Appear 1+ OVALOCYTES PT 18.1 H INR 1.6 H APTT 32.9 Sodium 135 Potassium 4.0 Chloride 100 L Carbon Dioxide 25 Anion Gap 10.0 BUN 8 Creatinine 0.8 Estimated GFR (MDRD) 100 Glucose 110 H Calcium 8.2 L Magnesium 1.9 Total Bilirubin 2.7 H AST 85 H ALT 26 Alkaline Phosphatase 81 Total Protein 7.7 Albumin 2.6 L Globulin 5.1 H Albumin/Globulin Ratio 0.5 L Lipase 49 Ethyl Alcohol < 5.0 Procedures - Paracentesis Preparation: Consent obtained, Ultrasound guidance, Sterile prep and drape, Local anesthesia Location: RLQ Technique: Z-tract, Catheter over needle Fluid: Clear, Sent for cell count, Sent for gram stain, Sent for culture, Volume - enter cc (7000) Aftercare: No complications, Patient tolerated well, Dressing applied PD MEDICAL DECISION MAKING - ED course Complexity details: considered differential (He is having significant discomfort with belly pain and also trouble breathing largely related to the volume of fluid in his abdomen. He also is having pain in the left lower chest. His CT scan did not show any splenic abnormalities nor lung effusion. He may have some cartilage pain in the area as he is locally tender. We can give him some pain medicine for that. Otherwise we discussed and had a shared decision for paracentesis in order to reduce his discomfort. During the procedure we discussed that for ongoing treatment would be the diuretics and to follow-up with his primary care. Subsequent need for paracentesis would best be done sche duled outpatient through interventional radiology and should be done through his primary care.), d/w patient Departure - Departure Disposition: 01 Home, Self Care Clinical Impression: Costal margin pain, Ascites due to alcoholic cirrhosis Dyspnea Qualifiers: Dyspnea type: shortness of breath Qualified Code(s): R06.02 - Shortness of breath; R06.00 - Dyspnea, unspecified; R06.01 - Orthopnea Cirrhosis Qualifiers: Hepatic cirrhosis type: alcoholic cirrhosis Ascites presence: with ascites Qualified Code(s): K70.31 - Alcoholic cirrhosis of liver with ascites Condition: Stable Record reviewed to determine appropriate education?: Yes Instructions: ED Ascites, ED Chest Pain Costochondritis Follow-Up: Cornelia Fox ARNP [Primary Care Provider] - Prescriptions: Furosemide 20 mg PO DAILY #30 tablet Oxycodone HCl 5 mg PO Q6H PRN #25 tablet PRN Reason: Pain Spironolactone 50 mg PO DAILY #30 tablet Comments: Stay well-hydrated. Minimize alcohol if you can. Use ibuprofen or naproxen if needed for pains and add oxycodone if needed for the rib and cartilage pain. I presume your pain is from inflammation of the cartilage on that side. To help reduce the remaining fluid in your abdomen, will use diuretics of spironolactone 50 mg daily and furosemide 20 mg daily. Weigh yourself daily. Follow-up with your primary care next Sunday as planned. If you are is gaining weight with those diuretics, they may increase the dose. Return if other problems develop. Subsequently if you need repeated drainage of the abdominal fluid for improvement in symptoms, he will be best done plan through your primary care and scheduled outpatient through the radiology department. You should discuss setting this up with your primary care well ahead of time. They may even consider setting it up to have done anyway in a couple of weeks. You may have some mild leakage from the puncture site in your abdomen later today. If you do, then just hold pressure on the area while lying down on your back and hold pressure for 10 or 15 minutes and it should stop.
--- NOTE | 2019-04-25 07:57 | CT Report ---
Reason: abd distension and left sided pain; h/o cirrhosis Procedure Date: 04/25/2019 Accession Number: [id number] / [id number] Procedure: CT - Abdomen/Pelvis W CPT Code: FULL RESULT: EXAM: CT ABDOMEN AND PELVIS WITH IV CONTRAST EXAM DATE: 04/25/2019 07:31 AM. CLINICAL HISTORY: Abdominal distention, left abdominal pain, history of cirrhosis. COMPARISONS: ABDOMEN/PELVIS W/ 10/30/2016. TECHNIQUE: Routine helical CT imaging was performed through the abdomen and pelvis. IV contrast: 90 mL Optiray 320. Enteric contrast: No. Reconstructions: Coronal and sagittal. In accordance with CT protocol optimization, one or more of the following dose reduction techniques were utilized for this exam: automated exposure control, adjustment of mA and/or KV based on patient size, or use of iterative reconstructive technique. FINDINGS: Lung Bases: Unremarkable. Liver: Nodular contour with relative enlargement of the left hepatic lobe, stable. No developing hepatic masses detected. Gallbladder/Bile Ducts: Unremarkable. Spleen: Normal. Pancreas: Normal. Adrenal Glands: Normal. Kidneys: Normal. No masses or hydronephrosis. Peritoneal Cavity/Bowel: Large volume ascites throughout the abdomen and pelvis. Small to moderate hiatal hernia. No bowel obstruction identified. Surgical clip or coil midline upper abdomen. The appendix is not visualized. Pelvic Organs: Normal. The bladder and visualized pelvic organs are within normal limits. Vasculature: No aneurysms or other significant abnormality. Bones: No significant abnormality. Other: None. IMPRESSION: Large volume ascites. Cirrhotic appearance of the liver. Splenic size within normal limits. RADIA
[2019-04-25] MEDS ORDERED: SODIUM CHLORIDE 0.9% 1,000 ML IV ONE (08:23)
[2019-04-25] MEDS ORDERED: HYDROmorphone 1 MG/ML CARPUJECT IVP STA (08:23)
[2019-04-25 09:33] LABS: CC,BF RBC 2000 /mm^3
[2019-04-25 09:34] LABS: BF COLOR YELLOW; BF SOURCE PERITONEAL
[2019-04-25 10:01] VITALS: BP 140/102
[2019-04-25 10:11] LABS: LYMPHOCYTES %,BODY FLUID 47; MONOCYTES %,BODY FLUID 47 %
== END 2019-04-25 09:56 | disposition home or self-care (01) ==
LOC: ED 05:22
DX: K70.31 Alcoholic cirrhosis of liver with ascites (principal); R07.89 Other chest pain; R06.00 Dyspnea, unspecified; I10 Essential (primary) hypertension; F17.200 Nicotine dependence, unspecified, uncomplicated
CPT/HCPCS: 36415; 49083; 74177; 80053; 80320; 83690; 83735; 85025; 85610; 85730; 87070; 87205; 87522; 89051; 96374; 96375; 99284; J1170; J2060; Q9967

== ENCOUNTER 2019-05-06 04:40 | Emergency (ER) | payer SELFPAY ==
--- NOTE | 2019-05-06 07:04 | ED Physician Documentation ---
PD HPI ABD PAIN - Stated complaint Stated Complaint: SOA/ABD CONCERN - Chief complaint Chief Complaint: Abd Pain - History obtained from History obtained from: Patient - History of Present Illness Timing - onset: How many days ago (few) Timing - duration: Days (few) Timing - details: Gradual onset Quality: Aching, Pain (feeling of fullness and tighness. Having trouble breathing when lying down.) Location: All over / everywhere Radiation: No: Chest, Lower back Improved by: Position (inclined lying) Worsened by: Eating, Moving, Breathing, Position (lying flat) Associated symptoms: Nausea. No: Fever, Vomiting, Diarrhea, Dysuria Similar symptoms before: Diagnosis (alcoholic cirrhosis and had paracentesis done about 10 days ago for first time. Is set up for paracentesis every 2 weeks starting May 22.) Recently seen: Clinic, Emergency Dept Review of Systems Constitutional: denies: Fever, Chills Nose: denies: Rhinorrhea / runny nose, Congestion Throat: denies: Sore throat Respiratory: denies: Cough GI: reports: Abdominal Pain, Abdominal Swelling, Nausea. denies: Vomiting, Constipation, Diarrhea Neurologic: denies: Generalized weakness, Focal weakness, Numbness, Difficulty speaking PD PAST MEDICAL HISTORY - Past Medical History Cardiovascular: Hypertension Respiratory: None Endocrine/Autoimmune: None GI: None, Esophageal varices, Hepatitis : None HEENT: None Psych: None Musculoskeletal: None Derm: None - Past Surgical History Past Surgical History: Yes General: EGD, Other Ortho: Carpal Tunnel surgery, Other - Present Medications Home Medications: Ambulatory Orders Medication Instructions Recorded Confirmed Multivitamin [Multivitamins] 1 cap PO DAILY 10/31/16 01/28/18 Nadolol 40 mg PO DAILY 10/31/16 01/28/18 Omeprazole [PriLOSEC] 20 mg PO QDAC 10/31/16 01/28/18 Furosemide 20 mg PO DAILY #30 tablet 04/25/19 Oxycodone HCl 5 mg PO Q6H PRN #25 tablet 04/25/19 Spironolactone 50 mg PO DAILY #30 tablet 04/25/19 - Allergies Allergies/Adverse Reactions: Allergies Allergy/AdvReac Type Severity Reaction Status Date / Time No Known Drug Allergies Allergy Verified 04/25/19 05:32 - Social History Does the pt smoke?: Yes Smoking Status: Current every day smoker Does the pt drink ETOH?: Yes Does the pt have substance abuse?: No - Immunizations Immunizations are current?: No - POLST Patient has POLST: No PD ED PE NORMAL - Vitals Vital signs reviewed: Yes - General General: Alert and oriented X 3, No acute distress, Well developed/nourished - Neck Neck: Supple, no meningeal sign, No adenopathy - Cardiac Cardiac: RRR, No murmur - Respiratory Respiratory: Clear bilaterally - Abdomen Abdomen: Other (tightly distended but not tender. dullness to percussion. ) - Back Back: No CVA TTP - Derm Derm: Normal color, Warm and dry - Extremities Extremities: No tenderness to palpate, Normal ROM s pain, No calf tenderness / cord, Other (1+ edema in both ankles) - Neuro Neuro: Alert and oriented X 3, No motor deficit, Normal speech Results - Vitals Vitals: Vital Signs - 24 hr 05/06/19 05/06/19 05/06/19 04:51 05:11 06:44 Temperature 36.8 C Heart Rate 82 62 Respiratory 17 19 Rate Blood Pressure 135/93 H 101/63 O2 Saturation 97 96 05/06/19 08:44 Temperature 36.6 C Heart Rate 70 Respiratory 18 Rate Blood Pressure 141/90 H O2 Saturation 98 Oxygen O2 Source Room air - Labs Labs: Microbiology 05/06/19 08:38 Body Fluid Culture - Preliminary Other - Abdominal Laboratory Tests 05/06/19 08:38 Fluid Source PERITONEAL Fluid Color YELLOW Fluid Clarity CLEAR Fluid WBC 69 Fluid RBC < 3000 Fluid Neutrophils % 1 Fluid Lymphocytes % 3 Fluid Monocytes % 37 Fluid Macrophages % 56 Fld Mesothelial Cell % 3 Procedures - Paracentesis Preparation: Consent obtained, Ultrasound guidance, Sterile prep and drape, Local anesthesia Location: RLQ Technique: Z-tract Fluid: Clear, Sent for cell count, Sent for gram stain, Sent for culture, Volume - enter cc (7800) Aftercare: No complications, Patient tolerated well, Dressing applied. No: Fluid leak - comment PD MEDICAL DECISION MAKING - ED course Complexity details: considered differential, d/w patient Departure - Departure Disposition: 01 Home, Self Care Clinical Impression: Ascites due to alcoholic cirrhosis Abdominal pain Qualifiers: Abdominal location: generalized Qualified Code(s): R10.84 - Generalized abdominal pain Condition: Stable Record reviewed to determine appropriate education?: Yes Instructions: ED Ascites Follow-Up: Cornelia Fox ARNP [Primary Care Provider] - Comments: Follow-up with your primary care. Start getting the paracenteses done regularly as scheduled starting on the third. Hopefully will stay comfortable enough until then. Watch for signs of infection at the puncture site. There may be slight leakage through the day and hold pressure and try to lay on your back if it does. Continue usual medications. Discharge Date/Time: 05/06/19 09:05
[2019-05-06 08:47] VITALS: BP 141/90
[2019-05-06 09:51] LABS: BF COLOR YELLOW; BF SOURCE PERITONEAL; CC,BF RBC < 3000 /mm^3; LYMPHOCYTES %,BODY FLUID 3; MACROPHAGES %,BODY FLUID 56 %; MESOTHELIAL %, BF 3 %; MONOCYTES %,BODY FLUID 37 %
== END 2019-05-06 09:05 | disposition home or self-care (01) ==
LOC: ED 04:40
DX: K70.31 Alcoholic cirrhosis of liver with ascites (principal); I10 Essential (primary) hypertension; F17.200 Nicotine dependence, unspecified, uncomplicated
CPT/HCPCS: 49082; 87070; 87205; 89051; 93005

== ENCOUNTER 2019-05-22 08:23 | Outpatient (CLI) | payer MEDICARE ==
[2019-05-22] MEDS ORDERED: BUFFERED LIDOCAINE 10 ML SYRINGE ONE (09:07)
[2019-05-22] MEDS ORDERED: BUFFERED LIDOCAINE 10 ML SYRINGE IU ONE (10:38)
--- NOTE | 2019-05-22 11:35 | Ultrasound Report ---
Reason: ASCITES, CIRRHOSIS OF LIVER Procedure Date: 05/22/2019 Accession Number: [id number] / [id number] Procedure: US - Abdominal Paracentesis CPT Code: FULL RESULT: EXAM: ULTRASOUND-GUIDED PARACENTESIS EXAM DATE: 05/22/2019 09:18 AM. CLINICAL HISTORY: Ascites, cirrhosis of liver. COMPARISON: CT abdomen and pelvis 04/25/2019, ultrasound 02/14/2018. TECHNIQUE: Risks, benefits, and alternatives to the procedure were discussed with the patient. All questions answered. Written and verbal consent obtained. Patient was placed in the supine position and the skin overlying the ascites marked with sonographic guidance. The skin was sterilely prepped and draped, and 1% buffered lidocaine was used for local anesthesia. An 8-[place] centesis catheter was advanced into the peritoneal ascites using ultrasound guidance and a large volume therapeutic paracentesis was performed. Upon completion, the catheter was removed. No complications. FINDINGS: A total of 7225 mL of fluid was removed without immediate complication. Patient tolerated procedure well. IMPRESSION: Uneventful large-volume therapeutic ultrasound-guided paracentesis. RADIA
== END 2019-05-22 08:24 | disposition home or self-care (01) ==
LOC: DI 08:23
PROVIDERS: ATTEND Nurse Practitioner Gerontology
DX: K70.31 Alcoholic cirrhosis of liver with ascites (principal); B19.20 Unspecified viral hepatitis C without hepatic coma; F10.20 Alcohol dependence, uncomplicated
CPT/HCPCS: 49083

== ENCOUNTER 2019-06-05 08:29 | Outpatient (CLI) | payer MEDICARE ==
[~2019-06-05 08:29] MED LIST changes: +BUFFERED LIDOCAINE 10 ML SYRINGE ONE; -LACTATED RINGERS 1,000 ML IV ONE
[2019-06-05] MEDS ORDERED: BUFFERED LIDOCAINE 10 ML SYRINGE IU ONE (14:23)
--- NOTE | 2019-06-07 09:30 | Ultrasound Report ---
Reason: ASCITES, CIRRHOSIS Procedure Date: 06/05/2019 Accession Number: [id number] / [id number] Procedure: US - Abdominal Paracentesis CPT Code: FULL RESULT: EXAM: ULTRASOUND-GUIDED PARACENTESIS EXAM DATE: 06/05/2019 10:00 AM. CLINICAL HISTORY: Ascites, cirrhosis. COMPARISON: 06/05/2019 2:08 PM ABDOMINAL PARACENTESIS 05/22/2019 9:18 AM. Note: The following dictation is for procedure performed 06/05/[address] Dylon Pedraza. Dictation is based on provided images and documentation. TECHNIQUE: Risks, benefits, and alternatives to the procedure were discussed with the patient. All questions answered. Written and verbal consent obtained. Patient was placed in the supine position and the skin overlying the ascites marked with sonographic guidance. The skin was sterilely prepped and draped, and 1% buffered lidocaine was used for local anesthesia. A catheter was advanced into the peritoneal ascites and fluid aspirated. Upon completion, the catheter was removed. FINDINGS: A total of 8.8 L of fluid was removed without immediate complication. Patient tolerated procedure well. IMPRESSION: Successful ultrasound-guided paracentesis. No documented immediate complications. RADIA
== END 2019-06-05 08:30 | disposition home or self-care (01) ==
LOC: DI 08:29
PROVIDERS: ATTEND Nurse Practitioner Gerontology
DX: K70.31 Alcoholic cirrhosis of liver with ascites (principal); F10.20 Alcohol dependence, uncomplicated; B19.20 Unspecified viral hepatitis C without hepatic coma
CPT/HCPCS: 49083

== ENCOUNTER 2019-06-20 08:29 | Outpatient (CLI) | payer SELFPAY ==
[2019-06-20] MEDS ORDERED: BUFFERED LIDOCAINE 10 ML SYRINGE ONE (08:57)
[2019-06-20] MEDS: BUFFERED LIDOCAINE 10 ML SYRINGE IU ONE ×2 (15:59→16:21)
--- NOTE | 2019-06-20 16:17 | Ultrasound Report ---
Reason: ASCITES, CIRRHOSIS Procedure Date: 06/20/2019 Accession Number: [id number] / [id number] Procedure: US - Abdominal Paracentesis CPT Code: Final Report FULL RESULT: EXAM: Abdominal Paracentesis DATE: 06/20/2019 10:27 AM CLINICAL HISTORY: ASCITES, CIRRHOSIS COMPARISON: 06/05/2019 FINDINGS: Following obtaining informed consent, a suitable site in the patient's right lower abdomen was selected with ultrasound. The skin was prepped and draped in the usual sterile fashion. The skin and soft tissues were anesthetized with buffered lidocaine. A Safetycentesis catheter was inserted into the peritoneal cavity, and approximately 10.4 liters of fluid were removed without difficulty. The patient tolerated the procedure well. No immediate complications. IMPRESSION: Successful ultrasound-guided paracentesis, yielding approximately 10.4 L of fluid.
== END 2019-06-20 08:30 | disposition home or self-care (01) ==
LOC: DI 08:29
PROVIDERS: ATTEND Nurse Practitioner Gerontology
DX: K70.31 Alcoholic cirrhosis of liver with ascites (principal); F10.20 Alcohol dependence, uncomplicated; B19.20 Unspecified viral hepatitis C without hepatic coma
CPT/HCPCS: 49083

== ENCOUNTER 2019-07-12 08:14 | Outpatient (CLI) | payer MEDICARE ==
--- NOTE | 2019-07-13 05:42 | Ultrasound Report ---
Reason: ALCOHOLIC CIRRHOSIS OF LIVER WITH ASCITES Procedure Date: 07/12/2019 Accession Number: [id number] / [id number] Procedure: US - Abdomen Complete CPT Code: Final Report FULL RESULT: EXAM: ABDOMEN ULTRASOUND EXAM DATE: 07/12/2019 09:42 AM. CLINICAL HISTORY: ALCOHOLIC CIRRHOSIS OF LIVER WITH ASCITES. COMPARISON: None. TECHNIQUE: Real-time scanning was performed with static images obtained. FINDINGS: Liver: Coarse in echotexture and nodular in contour. It is enlarged and measures 19.4 cm in length. No focal intrahepatic mass is seen. The main portal vein is enlarged measuring 1.6 cm. Main portal vein flow: Hepatopetal. Gallbladder: Normal. No stones, wall thickening, or sonographic Cantu's sign. Biliary System: Common bile duct measures 4 mm. No intrahepatic or extrahepatic ductal dilatation. Pancreas: Not visible secondary to overlying bowel gas. Kidneys: Right: 10.1 cm longitudinally. Mild dilatation of an extra renal pelvis measuring 1 cm in diameter. No contour-deforming mass, or stones. Left: 11 cm longitudinally. Normal. No contour-deforming mass, stones, or hydronephrosis. Spleen: 12.0 x 3.5 x 10.7 cm. Multiple calcified granulomas are seen throughout the spleen. Aorta and Inferior Vena Cava: Within normal limits. No evidence of aortic aneurysm. Other: Large-volume ascites. IMPRESSION: Enlarged cirrhotic liver with large-volume ascites Mildly dilated right extrarenal pelvis. RADIA
== END 2019-07-12 08:15 | disposition home or self-care (01) ==
LOC: DI 08:14
PROVIDERS: ATTEND Nurse Practitioner Adult Health
DX: K70.31 Alcoholic cirrhosis of liver with ascites (principal)
CPT/HCPCS: 76700

== ENCOUNTER 2019-07-16 08:25 | Outpatient (CLI) | payer MEDICARE ==
[2019-07-16] MEDS ORDERED: BUFFERED LIDOCAINE 10 ML SYRINGE ONE (08:47)
[2019-07-16 09:41] LABS: INR 1.4 (0.8-1.2); PT - PROTHROMBIN TIME 15.5 secs (9.9-12.6)
[2019-07-16 09:48] LABS: PARTIAL THROMBOPLASTIN TIME 36.2 secs (24.9-33.3)
[2019-07-16] MEDS ORDERED: BUFFERED LIDOCAINE 10 ML SYRINGE IU ONE (11:47)
--- NOTE | 2019-07-16 12:19 | Ultrasound Report ---
Reason: ASCITES, CIRRHOSIS Procedure Date: 07/16/2019 Accession Number: [id number] / [id number] Procedure: US - Abdominal Paracentesis CPT Code: Final Report FULL RESULT: EXAM: ULTRASOUND-GUIDED PARACENTESIS EXAM DATE: 07/16/2019 11:30 AM. CLINICAL HISTORY: Ascites, cirrhosis. COMPARISON: ABDOMINAL PARACENTESIS 07/04/2019 10:48 AM. TECHNIQUE: Risks, benefits, and alternatives to the procedure were discussed with the patient. All questions answered. Written and verbal consent obtained. Patient was placed in the supine position and the skin overlying the ascites (right lower quadrant) was marked with sonographic guidance. The skin was sterilely prepped and draped, and 1% buffered lidocaine was used for local anesthesia. An 18-gauge Byyg-I-Qagnaoht catheter was advanced into the peritoneal ascites and fluid aspirated. Upon completion, the catheter was removed. The patient was transferred to the MAC for planned albumin infusion. FINDINGS: A total of 11.5 liters of straw colored fluid was removed without immediate complication. Patient tolerated procedure well. IMPRESSION: Ultrasound-guided therapeutic paracentesis without immediate complications. RADIA
== END 2019-07-16 08:26 | disposition home or self-care (01) ==
LOC: DI 08:25
PROVIDERS: ATTEND Nurse Practitioner Gerontology
DX: K70.31 Alcoholic cirrhosis of liver with ascites (principal); F10.20 Alcohol dependence, uncomplicated; B19.20 Unspecified viral hepatitis C without hepatic coma
CPT/HCPCS: 36415; 49083; 85610; 85730

== ENCOUNTER 2019-07-31 11:35 | Outpatient (CLI) | payer MEDICARE ==
[2019-07-31] MEDS ORDERED: BUFFERED LIDOCAINE 10 ML SYRINGE ONE (11:46)
--- NOTE | 2019-07-31 14:28 | Ultrasound Report ---
Reason: ASCITES, CIRRHOSIS Procedure Date: 07/31/2019 Accession Number: [id number] / [id number] Procedure: US - Abdominal Paracentesis CPT Code: Final Report FULL RESULT: EXAM: ULTRASOUND-GUIDED PARACENTESIS EXAM DATE: 07/31/2019 01:47 PM. CLINICAL HISTORY: Ascites, cirrhosis. COMPARISON: ABDOMINAL PARACENTESIS 07/16/2019 8:31 AM. TECHNIQUE: Risks, benefits, and alternatives to the procedure were discussed with the patient. All questions answered. Written and verbal consent obtained. Patient was placed in the supine position and the skin overlying the ascites marked with sonographic guidance. The skin was sterilely prepped and draped, and 1% buffered lidocaine was used for local anesthesia. 4 Azeri drain or catheter needle combination was advanced into the peritoneal ascites and fluid aspirated. Upon completion, the catheter was removed. FINDINGS: A total of 12,000 mL of fluid was removed without immediate complication. Patient tolerated procedure well. IMPRESSION: Ultrasound-guided paracentesis without immediate complications. RADIA
[2019-07-31] MEDS: BUFFERED LIDOCAINE 10 ML SYRINGE IU ONE (14:57)
== END 2019-07-31 11:36 | disposition home or self-care (01) ==
LOC: DI 11:35
PROVIDERS: ATTEND Nurse Practitioner Gerontology
DX: K70.31 Alcoholic cirrhosis of liver with ascites (principal); F10.20 Alcohol dependence, uncomplicated; B19.20 Unspecified viral hepatitis C without hepatic coma
CPT/HCPCS: 49083

== ENCOUNTER 2019-08-11 09:45 | Outpatient (CLI) | payer MEDICARE ==
[2019-08-11] MEDS ORDERED: BUFFERED LIDOCAINE 10 ML SYRINGE ONE (10:17)
[2019-08-11] MEDS ORDERED: SODIUM CHLORIDE FLUSH 0.9% 10 ML SYRINGE ONE (12:32)
[2019-08-11] MEDS ORDERED: SODIUM CHLORIDE 0.9% 0 ML IV ONE (12:32)
--- NOTE | 2019-08-11 13:31 | Ultrasound Report ---
Reason: ASCITES, CIRRHOSIS Procedure Date: 08/11/2019 Accession Number: [id number] / [id number] Procedure: US - Abdominal Paracentesis CPT Code: Final Report FULL RESULT: EXAM: ULTRASOUND GUIDANCE FOR PROCEDURE EXAM DATE: 08/11/2019 11:29 AM. CLINICAL HISTORY: ASCITES, CIRRHOSIS. COMPARISON: ABDOMINAL PARACENTESIS 07/31/2019 11:41 AM. TECHNIQUE: Real-time and static images were obtained. FINDINGS: There is large amount of ascites. Ultrasound guidance was provided to clinical team, who performed the procedure. IMPRESSION: Ultrasound guidance for paracentesis. RADIA
[2019-08-11] MEDS ORDERED: BUFFERED LIDOCAINE 10 ML SYRINGE IU ONE (15:24)
== END 2019-08-11 09:46 | disposition home or self-care (01) ==
LOC: DI 09:45
PROVIDERS: ATTEND Nurse Practitioner Gerontology
DX: K70.31 Alcoholic cirrhosis of liver with ascites (principal); F10.20 Alcohol dependence, uncomplicated; B19.20 Unspecified viral hepatitis C without hepatic coma
CPT/HCPCS: 49083

== ENCOUNTER 2019-08-22 13:10 | Outpatient (CLI) | payer MEDICARE ==
[2019-08-22] MEDS ORDERED: BUFFERED LIDOCAINE 10 ML SYRINGE IU ONE (15:04)
--- NOTE | 2019-09-01 15:00 | Ultrasound Report ---
Reason: ASCITES, CIRRHOSIS Procedure Date: 08/22/2019 Accession Number: [id number] / [id number] Procedure: US - Abdominal Paracentesis CPT Code: Final Report FULL RESULT: EXAM: Abdominal Paracentesis DATE: 08/22/2019 3:03 PM CLINICAL HISTORY: ASCITES, CIRRHOSIS COMPARISON: None FINDINGS: Following obtaining informed consent, a suitable site in the patient's right abdomen was selected with ultrasound. The skin was prepped and draped in the usual sterile fashion. The skin and soft tissues were anesthetized with buffered lidocaine. A Safetycentesis catheter was inserted into the peritoneal cavity, and approximately 7100 mL of fluid was removed without difficulty. The patient tolerated the procedure well. No immediate complications. IMPRESSION: Successful ultrasound-guided paracentesis, yielding approximately 7100 mL of fluid.
== END 2019-08-22 13:11 | disposition home or self-care (01) ==
LOC: DI 13:10
PROVIDERS: ATTEND Nurse Practitioner Gerontology
DX: K70.31 Alcoholic cirrhosis of liver with ascites (principal); B19.20 Unspecified viral hepatitis C without hepatic coma; F10.20 Alcohol dependence, uncomplicated
CPT/HCPCS: 49083

== ENCOUNTER 2019-08-27 14:57 | Outpatient (CLI) | payer MEDICARE ==
[2019-08-27] MEDS ORDERED: BUFFERED LIDOCAINE 10 ML SYRINGE IU ONE (17:07)
--- NOTE | 2019-08-28 14:25 | Ultrasound Report ---
Reason: ASCITES, CIRRHOSIS Procedure Date: 08/27/2019 Accession Number: [id number] / [id number] Procedure: US - Abdominal Paracentesis CPT Code: Final Report FULL RESULT: EXAM: ULTRASOUND-GUIDED PARACENTESIS EXAM DATE: 08/27/2019 03:10 PM. CLINICAL HISTORY: ASCITES, CIRRHOSIS. COMPARISON: ABDOMINAL US 08/22/2019. TECHNIQUE: Risks, benefits, and alternatives to the procedure were discussed with the patient. All questions answered. Written and verbal consent obtained. Patient was placed in the supine position and the skin overlying the ascites marked with sonographic guidance. The skin was sterilely prepped and draped, and 1% buffered lidocaine was used for local anesthesia. An 18-gauge SafeTcentesis was advanced into the peritoneal ascites and fluid aspirated. Upon completion, the catheter was removed. FINDINGS: A total of 700 mL of straw-colored fluid was removed without immediate complication. He patient tolerated procedure well and was discharged to the MAC for albumin infusion. IMPRESSION: Ultrasound-guided paracentesis without immediate complications. RADIA
== END 2019-08-27 14:58 | disposition home or self-care (01) ==
LOC: DI 14:57
PROVIDERS: ATTEND Nurse Practitioner Gerontology
DX: K70.31 Alcoholic cirrhosis of liver with ascites (principal)
CPT/HCPCS: 49083

== ENCOUNTER 2019-09-05 11:59 | Outpatient (CLI) | payer MEDICARE, MEDICAID ==
[2019-09-05] MEDS ORDERED: BUFFERED LIDOCAINE 10 ML SYRINGE ONE (12:06)
[2019-09-05] MEDS ORDERED: SODIUM CHLORIDE FLUSH 0.9% 10 ML SYRINGE ONE (13:30)
[2019-09-05] MEDS ORDERED: BUFFERED LIDOCAINE 10 ML SYRINGE IU ONE (18:45)
--- NOTE | 2019-09-08 08:42 | Ultrasound Report ---
Reason: ASCITES, CIRRHOSIS Procedure Date: 09/05/2019 Accession Number: [id number] / [id number] Procedure: US - Abdominal Paracentesis CPT Code: Final Report FULL RESULT: EXAM: ULTRASOUND-GUIDED PARACENTESIS EXAM DATE: 09/05/2019 01:48 PM. CLINICAL HISTORY: ASCITES, CIRRHOSIS. COMPARISON: ABDOMINAL PARACENTESIS 08/27/2019 3:10 PM. TECHNIQUE: Procedure performed by Dr. Pedraza. Risks, benefits, and alternatives to the procedure were discussed with the patient. All questions answered. Written and verbal consent obtained. Patient was placed in the supine position and the skin overlying the ascites marked with sonographic guidance. The skin was sterilely prepped and draped, and 1% buffered lidocaine was used for local anesthesia. A catheter was advanced into the peritoneal ascites and fluid aspirated. Upon completion, the catheter was removed. FINDINGS: A total of 9.2 L of fluid was removed without immediate complication. Patient tolerated procedure well. IMPRESSION: Ultrasound-guided paracentesis without immediate complications. Procedure performed by Dr. Pedraza. Study dictated by me in his absence in order to create a permanent record for the patient's chart. CARLENE
== END 2019-09-05 12:00 | disposition home or self-care (01) ==
LOC: DI 11:59
PROVIDERS: ATTEND Nurse Practitioner Gerontology
DX: K70.31 Alcoholic cirrhosis of liver with ascites (principal); F10.20 Alcohol dependence, uncomplicated; B19.20 Unspecified viral hepatitis C without hepatic coma
CPT/HCPCS: 49083

== ENCOUNTER 2019-09-10 11:16 | Outpatient (CLI) | payer MEDICARE, MEDICAID ==
[2019-09-10] MEDS ORDERED: BUFFERED LIDOCAINE 10 ML SYRINGE ONE (11:49)
--- NOTE | 2019-09-10 17:01 | Ultrasound Report ---
Reason: ASCITES, CIRRHOSIS Procedure Date: 09/10/2019 Accession Number: [id number] / [id number] Procedure: US - Abdomen Limited CPT Code: Final Report FULL RESULT: EXAM: ABDOMEN ULTRASOUND LIMITED, EXAM DATE: 09/10/2019 12:58 PM. CLINICAL HISTORY: Ascites, cirrhosis. COMPARISON: ABDOMINAL PARACENTESIS 09/05/2019 12:19 PM. TECHNIQUE: Real-time scanning was performed with static images obtained. FINDINGS: All four quadrants of the abdomen were evaluated sonographically. A small amount of fluid is confirmed. Paracentesis deferred at this time. Note: Last paracentesis performed 09/05/2019 (10 liters removed.) IMPRESSION: Modest ascites. Paracentesis deferred. Follow-up ultrasound with possible paracentesis scheduled 09/16/2019. RADIA
== END 2019-09-10 11:17 | disposition home or self-care (01) ==
LOC: DI 11:16
PROVIDERS: ATTEND Nurse Practitioner Gerontology
DX: K70.31 Alcoholic cirrhosis of liver with ascites (principal)
CPT/HCPCS: 76705

== ENCOUNTER 2019-09-25 11:55 | Outpatient (CLI) | payer MEDICARE, MEDICAID ==
[2019-09-25] MEDS ORDERED: SODIUM CHLORIDE FLUSH 0.9% 10 ML SYRINGE ONE ×2 (13:30→13:45)
--- NOTE | 2019-09-25 14:17 | Ultrasound Report ---
Reason: ASCITES, CIRRHOSIS Procedure Date: 09/25/2019 Accession Number: [id number] / [id number] Procedure: US - Abdominal Paracentesis CPT Code: Final Report FULL RESULT: EXAM: ULTRASOUND-GUIDED PARACENTESIS EXAM DATE: 09/25/2019 01:48 PM. CLINICAL HISTORY: ASCITES, CIRRHOSIS. COMPARISON: ABDOMINAL PARACENTESIS 09/16/2019 7:48 AM. TECHNIQUE: Risks, benefits, and alternatives to the procedure were discussed with the patient. All questions answered. Written and verbal consent obtained. Patient was placed in the supine position and the skin overlying the right lower quadrant ascites marked with sonographic guidance. The skin was sterilely prepped and draped, and 1% buffered lidocaine was used for local anesthesia. An 18-gauge [employer] Centesis catheter was advanced into the peritoneal ascites and fluid aspirated. Upon completion, the catheter was removed. FINDINGS: A total of 7250 mL of fluid was removed without immediate complication. Patient tolerated procedure well. IMPRESSION: Ultrasound-guided paracentesis without immediate complications. RADIA
[2019-09-25] MEDS ORDERED: BUFFERED LIDOCAINE 10 ML SYRINGE IU ONE (14:18)
== END 2019-09-25 11:56 | disposition home or self-care (01) ==
LOC: DI 11:55
PROVIDERS: ATTEND Nurse Practitioner Gerontology
DX: K70.31 Alcoholic cirrhosis of liver with ascites (principal)
CPT/HCPCS: 49083

== ENCOUNTER 2019-10-02 12:13 | Outpatient (CLI) | payer MEDICARE, MEDICAID ==
[2019-10-02] MEDS ORDERED: BUFFERED LIDOCAINE 10 ML SYRINGE ONE (12:21)
--- NOTE | 2019-10-02 13:13 | OPERATIVE REPORT ---
Operative Report - General Procedure Date: 10/02/19 Planned Procedure: Abdominal paracentesis Pre-Op Diagnosis: Alcoholic cirrhosis Procedure Performed: Abdominal paracentesis Post Op Diagnosis: Alcoholic cirrhosis - Procedure Note Primary Surgeon: Wendie Anesthesia Technique: Local Indications: Alcoholic cirrhosis with symptomatic ascites Findings: Clear fluid, yellow brown in color but without sediment. Complications: None apparent - Other Other Information/Narrative: After obtaining informed consent, the patient was brought to the procedure room and placed in the supine position. Ultrasound was used to identify a fluid win jasiel in the right lower quadrant. The abdomen was then prepped and draped in the standard fashion. The area identified was anesthetized with local anesthetic. Under direct guidance, a paracentesis catheter was placed into the fluid window and the needle removed leaving only the catheter. The catheter was attached to vacuum bottles via sterile tubing. Clear, yellow brown fluid was then aspirated from the peritoneal cavity. When the catheter stopped draining, it was removed without difficulty and a bandage applied. The patient tolerated the procedure well and was discharged to his home.
[2019-10-02] MEDS ORDERED: BUFFERED LIDOCAINE 10 ML SYRINGE IU ONE (14:51)
--- NOTE | 2019-10-03 09:34 | Ultrasound Report ---
Reason: ASCITES, CIRRHOSIS Procedure Date: 10/02/2019 Accession Number: [id number] / [id number] Procedure: US - Abdominal Paracentesis CPT Code: Final Report FULL RESULT: EXAM: ULTRASOUND GUIDANCE FOR PROCEDURE EXAM DATE: 10/02/2019 01:51 PM. CLINICAL HISTORY: Ascites, cirrhosis. COMPARISON: ABDOMINAL PARACENTESIS 09/25/2019 12:17 PM. TECHNIQUE: Real-time and static images were obtained. FINDINGS: Ultrasound guidance was provided to Dr. Pressley, who performed the procedure. IMPRESSION: Ultrasound guidance for paracentesis procedure. RADIA
== END 2019-10-02 12:14 | disposition home or self-care (01) ==
LOC: DI 12:13
PROVIDERS: ATTEND Nurse Practitioner Gerontology
DX: K70.31 Alcoholic cirrhosis of liver with ascites (principal)
CPT/HCPCS: 49083

== ENCOUNTER 2019-10-06 08:42 | Outpatient (CLI) | payer MEDICARE, MEDICAID ==
[2019-10-06 09:33] LABS: BASOPHILS # (AUTO) 0.1 10^3/uL (0.0-0.1); BASOPHILS % (AUTO) 1.7 %; EOSINOPHILS # (AUTO) 0.1 10^3/uL (0.0-0.7); EOSINOPHILS % (AUTO) 1.7 %; HGB - HEMOGLOBIN 12.3 g/dL (14.0-18.0); LYMPHOCYTES # (AUTO) 0.6 10^3/uL (1.5-3.5); LYMPHOCYTES % (AUTO) 14.8 %; MEAN CORPUSCULAR HEMOGLOBIN 27.8 pg (27.0-31.0); MEAN CORPUSCULAR HGB CONC 34.7 g/dL (32.0-36.0); MEAN CORPUSCULAR VOLUME 79.9 fL (80.0-94.0); MEAN PLATELET VOLUME 10.7 fL (7.4-11.4); MONOCYTES # (AUTO) 0.8 10^3/uL (0.0-1.0); MONOCYTES % (AUTO) 19.5 %; NEUTROPHILS # (AUTO) 2.6 10^3/uL (1.5-6.6); NEUTROPHILS % (AUTO) 62.1 %; PLT - PLATELET COUNT 128 10^3/uL (130-450); RED BLOOD COUNT 4.43 10^6/uL (4.70-6.10); RED CELL DISTRIBUTION WIDTH 18.7 % (12.0-15.0); WHITE BLOOD COUNT 4.2 x10^3/uL (4.8-10.8)
[2019-10-06 09:42] LABS: INR 1.4 (0.8-1.2)
[2019-10-06 09:47] LABS: ALBUMIN 3.1 g/dL (3.2-5.5); ALBUMIN/GLOBULIN RATIO 0.7 (1.0-2.2); BILIRUBIN,TOTAL 1.4 mg/dL (0.2-1.0); CALCIUM 8.3 mg/dL (8.5-10.3); CREATININE 0.8 mg/dL (0.6-1.2); TOTAL PROTEIN 7.4 g/dL (6.7-8.2)
== END 2019-10-06 08:43 | disposition home or self-care (01) ==
LOC: LAB 08:42
PROVIDERS: ATTEND Surgery
DX: Z01.812 Encounter for preprocedural laboratory examination (principal); K70.31 Alcoholic cirrhosis of liver with ascites
CPT/HCPCS: 36415; 80053; 85025; 85610; 86850; 86900; 86901

== ENCOUNTER 2019-10-07 08:07 | Day surgery (SDC) | payer MEDICARE, MEDICAID ==
[2019-10-07] MEDS ORDERED: LACTATED RINGERS 1,000 ML IV ONE (08:53)
[2019-10-07] MEDS ORDERED: CEFAZOLIN SODIUM IN 0.9 % NACL 2 GM/100 ML BAG IV ONE (08:58)
--- NOTE | 2019-10-07 09:17 | ANESTHESIA ---
Pre-Anesthesia VS, & Labs - Diagnosis cirrhosis w/need for central line access - Procedure portacath placement Vital Signs: Temp Pulse Resp BP Pulse Ox 36.4 C L 64 18 126/68 100 10/07/19 08:33 10/07/19 08:33 10/07/19 08:33 10/07/19 08:33 10/07/19 08:33 Height 5 ft 10 in Weight (kg) 103 kg Body Mass Index 35.9 - NPO >8 hours - Lab Results Lab results reviewed: Yes Home Medications and Allergies Home Medications: Ambulatory Orders Cholecalciferol (Vitamin D3) [Vitamin D3] 1,000 unit PO DAILY 10/06/19 Furosemide 40 mg PO DAILY 10/06/19 Metoprolol Tartrate 25 mg PO BID 10/06/19 Multivitamin [Daily Multiple Vitamin] 1 each PO DAILY 10/06/19 Potassium Chloride [Klor-Con 10] 10 meq PO DAILY 10/06/19 Spironolactone 50 mg PO BID 10/06/19 Omeprazole [PriLOSEC] 20 mg PO QDAC 10/31/16 Cholecalciferol (Vitamin D3) [Vitamin D3] 1,000 unit PO DAILY 10/06/19 Furosemide 40 mg PO DAILY 10/06/19 Metoprolol Tartrate 25 mg PO BID 10/06/19 Multivitamin [Daily Multiple Vitamin] 1 each PO DAILY 10/06/19 Potassium Chloride [Klor-Con 10] 10 meq PO DAILY 10/06/19 Spironolactone 50 mg PO BID 10/06/19 Allergies/Adverse Reactions: Allergies Allergy/AdvReac Type Severity Reaction Status Date / Time No Known Drug Allergies Allergy Verified 09/25/19 13:41 Anes History & Medical History - Anesthetic History Anesthesia Complications: reports: No previous complications Family history of Anesthesia Complications: Denies Family history of Malignant Hyperthermia: Denies - Medical History Cardiovascular: reports: Hypertension Pulmonary: reports: None Gastrointestinal: reports: GERD, Esophageal varices, Hepatitis, Cirrhosis, Other (current R inguinal hernia) Urinary: reports: None Musculoskeletal: reports: None Endocrine/Autoimmune: reports: None Blood Disorders: reports: None Skin: reports: None Smoking Status: Current every day smoker - Surgical History General: Colonoscopy, EGD, Other Orthopedic: Spine surgery, Other Exam General: Alert, Oriented x3, Cooperative Dental: WNL Mouth Openin Fingerbreadth Neck Mobility: Normal Mallampati classification: I Thyromental Distance: greater than 6 cm Respiratory: Lungs clear, Normal breath sounds Cardiovascular: Regular rate Neurological: Normal speech Mental/Cognitive Status: Alert/Oriented X3 Cognitive Status: Within normal limits Plan Anesthesia Type: General Consent for Procedure(s) Verified and Reviewed: Yes Code Status: Attempt Resuscitation ASA classification: 3-Severe systemic disease Is this case an emergency?: No
[2019-10-07] MEDS ORDERED: SODIUM CHLORIDE 0.9% 20 ML ONE (09:24)
[2019-10-07] MEDS ORDERED: LIDOCAINE 1%-EPI 1:100000 20 ML MDV ONE (10:17)
[2019-10-07] MEDS ORDERED: PROPOFOL 200 MG/20 ML VIAL IVP ONE (10:23)
[2019-10-07] MEDS ORDERED: LIDOCAINE-MPF 2% 5 ML VIAL IM ONE (10:23)
[2019-10-07] MEDS ORDERED: fentaNYL 100 MCG/2 ML VIAL IVP ONE (10:23)
[2019-10-07] MEDS ORDERED: MIDAZOLAM 2 MG/2 ML VIAL IVP ONE (10:23)
[2019-10-07] MEDS ORDERED: LIDOCAINE 1%-EPI 1:100000 20 ML MDV SUBQ ONE (10:50)
[2019-10-07] MEDS ORDERED: BUPIVACAINE 0.25% PF 30 ML VIAL SUBQ ONE (10:51)
[2019-10-07 12:44] VITALS: BP 118/80
[2019-10-07] MEDS ORDERED: oxyCODONE 5 MG TABLET PO PRN (12:50)
[2019-10-07] MEDS ORDERED: HYDROmorphone 0.5 MG/0.5 ML SYRINGE IVP PRN (12:50)
[2019-10-07] MEDS ORDERED: ONDANSETRON 4 MG/2 ML VIAL IVP PRN (12:50)
--- NOTE | 2019-10-07 12:55 | XRAY Report ---
Reason: port placement Procedure Date: 10/07/2019 Accession Number: [id number] / [id number] Procedure: XR - Post Port Placement 1V CXR CPT Code: 16532 Final Report FULL RESULT: EXAM: CHEST RADIOGRAPHY EXAM DATE: 10/07/2019 11:50 AM. CLINICAL HISTORY: Port placement. COMPARISON: CHEST 2 VIEW PA/LAT 10/30/2016 10:04 AM. TECHNIQUE: 1 view. FINDINGS: Lungs/Pleura: No focal opacities evident. No pleural effusion. No pneumothorax. Mediastinum: Within exam limitations, the cardiomediastinal contour is normal. Other: Right-sided Port-A-Cath tip in the right atrium. IMPRESSION: Right-sided Port-A-Cath tip in the right atrium. No pneumothorax. RADIA
--- NOTE | 2019-10-07 14:20 | XRAY Report ---
Reason: PORTACATH PLACEMENT Procedure Date: 10/07/2019 Accession Number: [id number] / [id number] Procedure: FL - OR C-Arm Procedure CPT Code: Final Report FULL RESULT: EXAM: FLUOROSCOPIC GUIDANCE EXAM DATE: 10/07/2019 01:34 PM. CLINICAL HISTORY: PORTACATH PLACEMENT. COMPARISON: None. FINDINGS: Single fluoroscopic capture image partially demonstrating the thorax as well as a port catheter. IMPRESSION: Fluoroscopic guidance provided for Port-A-Cath placement. Total fluoroscopy time: 0.07 minutes. Number of images: 1. RADIA
== END 2019-10-07 08:08 | disposition home or self-care (01) ==
LOC: SDS 08:07
PROVIDERS: ATTEND Surgery
DX: K70.31 Alcoholic cirrhosis of liver with ascites (principal); K40.90 Unilateral inguinal hernia, without obstruction or gangrene, not specified as recurrent; I10 Essential (primary) hypertension; J44.9 Chronic obstructive pulmonary disease, unspecified; B19.20 Unspecified viral hepatitis C without hepatic coma; F10.20 Alcohol dependence, uncomplicated; F17.210 Nicotine dependence, cigarettes, uncomplicated; E66.3 Overweight; Z68.31 Body mass index [BMI] 31.0-31.9, adult
CPT/HCPCS: 36561; C1788; J0690; J7120; 71045

== ENCOUNTER 2019-10-08 11:57 | Outpatient (CLI) | payer MEDICARE ==
[2019-10-08] MEDS ORDERED: BUFFERED LIDOCAINE 10 ML SYRINGE ONE (12:26)
[2019-10-08] MEDS ORDERED: BUFFERED LIDOCAINE 10 ML SYRINGE IU ONE (15:44)
--- NOTE | 2019-10-14 08:25 | Ultrasound Report ---
Reason: ASCITES, CIRRHOSIS Procedure Date: 10/08/2019 Accession Number: [id number] / [id number] Procedure: US - Abdominal Paracentesis CPT Code: Final Report FULL RESULT: EXAM: ULTRASOUND-GUIDED PARACENTESIS EXAM DATE: 10/08/2019 01:41 PM. CLINICAL HISTORY: ASCITES, CIRRHOSIS. COMPARISON: None. TECHNIQUE: Risks, benefits, and alternatives to the procedure were discussed with the patient. All questions answered. Written and verbal consent obtained. Patient was placed in the supine position and the skin overlying the ascites marked with sonographic guidance. The skin was sterilely prepped and draped, and 1% buffered lidocaine was used for local anesthesia. An 18-gauge yueh was advanced into the peritoneal ascites and fluid aspirated. Upon completion, the catheter was removed. FINDINGS: A total of 6600 mL of fluid was removed without immediate complication. Patient tolerated procedure well. IMPRESSION: Ultrasound-guided paracentesis without immediate complications. RADIA
== END 2019-10-08 11:58 | disposition home or self-care (01) ==
LOC: DI 11:57
PROVIDERS: ATTEND Nurse Practitioner Gerontology
DX: K70.31 Alcoholic cirrhosis of liver with ascites (principal)
CPT/HCPCS: 49083

== ENCOUNTER 2019-10-16 12:39 | Outpatient (CLI) | payer MEDICARE ==
[2019-10-16] MEDS ORDERED: BUFFERED LIDOCAINE 10 ML SYRINGE ONE (12:49)
--- NOTE | 2019-10-16 13:39 | OPERATIVE REPORT ---
Operative Report - General Procedure Date: 10/16/19 Planned Procedure: Ultrasound-guided paracentesis Pre-Op Diagnosis: Alcoholic cirrhosis with painful ascites Procedure Performed: Ultrasound-guided paracentesis Post Op Diagnosis: Alcoholic cirrhosis with painful ascites - Procedure Note Primary Surgeon: Wendie Anesthesia Technique: Local Estimated Blood Loss (mL): 1 Findings: Clear ascites fluid - Other Other Information/Narrative: fter obtaining informed consent, the patient was brought to the procedure room and placed in the supine position. Ultrasound was used to identify a fluid window in the right lower quadrant. The abdomen was then prepped and draped in the standard fashion. The area identified was anesthetized with local anesthetic. Under direct guidance, a paracentesis catheter was placed into the fluid window and the needle removed leaving only the catheter. The catheter was attached to vacuum bottles via sterile tubing. Clear, yellow fluid was then aspirated from the peritoneal cavity. When the catheter stopped draining, it was removed without difficulty and a bandage applied. The patient tolerated the procedure well and was discharged to his home.
[2019-10-16] MEDS ORDERED: BUFFERED LIDOCAINE 10 ML SYRINGE IU ONE (15:28)
--- NOTE | 2019-10-17 15:39 | Ultrasound Report ---
Reason: ASCITES, CIRRHOSIS Procedure Date: 10/16/2019 Accession Number: [id number] / [id number] Procedure: US - Abdominal Paracentesis CPT Code: Final Report FULL RESULT: EXAM: ULTRASOUND-GUIDED PARACENTESIS EXAM DATE: 10/16/2019 02:19 PM. CLINICAL HISTORY: ASCITES, CIRRHOSIS. COMPARISON: ABDOMINAL PARACENTESIS 10/08/2019 12:22 PM. TECHNIQUE: Procedure performed by Dr. Annalise Pressley FINDINGS: A total of 6100 mL of fluid was removed without immediate complication. Patient tolerated procedure well. IMPRESSION: Ultrasound-guided paracentesis performed by Dr. Pressley. CARLENE
== END 2019-10-16 12:40 | disposition home or self-care (01) ==
LOC: DI 12:39
PROVIDERS: ATTEND Nurse Practitioner Gerontology
DX: K70.31 Alcoholic cirrhosis of liver with ascites (principal)
CPT/HCPCS: 49083

== ENCOUNTER 2019-10-22 12:35 | Outpatient (CLI) | payer MEDICARE, MEDICAID ==
[2019-10-22] MEDS ORDERED: BUFFERED LIDOCAINE 10 ML SYRINGE ONE (12:43)
[2019-10-22] MEDS ORDERED: BUFFERED LIDOCAINE 10 ML SYRINGE IU ONE (14:34)
--- NOTE | 2019-10-22 15:07 | Ultrasound Report ---
Reason: ALCOHOLIC CIRRHOSIS OF LIVER WITH ASCITES Procedure Date: 10/22/2019 Accession Number: [id number] / [id number] Procedure: US - Abdominal Paracentesis CPT Code: Final Report FULL RESULT: EXAM: ULTRASOUND-GUIDED PARACENTESIS EXAM DATE: 10/22/2019 12:51 PM. CLINICAL HISTORY: ALCOHOLIC CIRRHOSIS OF LIVER WITH ASCITES. COMPARISON: ABDOMINAL PARACENTESIS 10/16/2019 12:48 PM. TECHNIQUE: Risks, benefits, and alternatives to the procedure were discussed with the patient. All questions answered. Written and verbal consent obtained. Patient was placed in the supine position and the skin overlying the ascites marked with sonographic guidance. The skin was sterilely prepped and draped, and 1% buffered lidocaine was used for local anesthesia. An 18-gauge Yueh was advanced into the peritoneal ascites and fluid aspirated. Upon completion, the catheter was removed. FINDINGS: A total of 2500 mL of fluid was removed without immediate complication. Patient tolerated procedure well. IMPRESSION: Ultrasound-guided paracentesis without immediate complications. RADIA
== END 2019-10-22 12:36 | disposition home or self-care (01) ==
LOC: DI 12:35
PROVIDERS: ATTEND Nurse Practitioner Gerontology
DX: K70.31 Alcoholic cirrhosis of liver with ascites (principal)
CPT/HCPCS: 49083

== ENCOUNTER 2019-10-29 12:40 | Outpatient (CLI) | payer MEDICARE, MEDICAID ==
[2019-10-29] MEDS ORDERED: BUFFERED LIDOCAINE 10 ML SYRINGE ONE (13:13)
[2019-10-29] MEDS ORDERED: BUFFERED LIDOCAINE 10 ML SYRINGE IU ONE (15:26)
--- NOTE | 2019-10-29 15:55 | Ultrasound Report ---
Reason: ALCOHOLIC CIRRHOSIS OF LIVER WITH ASCITES Procedure Date: 10/29/2019 Accession Number: [id number] / [id number] Procedure: US - Abdominal Paracentesis CPT Code: Final Report FULL RESULT: EXAM: ULTRASOUND-GUIDED PARACENTESIS EXAM DATE: 10/29/2019 03:12 PM. CLINICAL HISTORY: Alcoholic cirrhosis of liver with ascites. COMPARISON: ABDOMINAL PARACENTESIS 10/22/2019 12:51 PM. TECHNIQUE: Risks, benefits, and alternatives to the procedure were discussed with the patient. All questions answered. Written and verbal consent obtained. Patient was placed in the supine position and the skin overlying the ascites marked with sonographic guidance. The skin was sterilely prepped and draped, and 1% buffered lidocaine was used for local anesthesia. An 18-gauge Yueh was advanced into the peritoneal ascites and fluid aspirated. Upon completion, the catheter was removed. FINDINGS: A total of 6000 mL of fluid was removed without immediate complication. Patient tolerated procedure well. IMPRESSION: Ultrasound-guided paracentesis without immediate complications. RADIA
== END 2019-10-29 12:41 | disposition home or self-care (01) ==
LOC: DI 12:40
PROVIDERS: ATTEND Nurse Practitioner Gerontology
DX: K70.31 Alcoholic cirrhosis of liver with ascites (principal)
CPT/HCPCS: 49083

== ENCOUNTER 2019-11-05 12:46 | Outpatient (CLI) | payer MEDICARE, MEDICAID ==
[2019-11-05] MEDS ORDERED: BUFFERED LIDOCAINE 10 ML SYRINGE ONE (12:54)
[2019-11-05] MEDS ORDERED: BUFFERED LIDOCAINE 10 ML SYRINGE IU ONE (14:46)
--- NOTE | 2019-11-05 15:25 | Ultrasound Report ---
Reason: ALCOHOLIC CIRRHOSIS OF LIVER WITH ASCITES Procedure Date: 11/05/2019 Accession Number: [id number] / [id number] Procedure: US - Abdominal Paracentesis CPT Code: Final Report FULL RESULT: EXAM: ULTRASOUND-GUIDED PARACENTESIS EXAM DATE: 11/05/2019 01:01 PM. CLINICAL HISTORY: ALCOHOLIC CIRRHOSIS OF LIVER WITH ASCITES. COMPARISON: ABDOMINAL PARACENTESIS 10/29/2019 1:03 PM. TECHNIQUE: Risks, benefits, and alternatives to the procedure were discussed with the patient. All questions answered. Written and verbal consent obtained. Patient was placed in the supine position and the skin overlying the right lower quadrant ascites marked with sonographic guidance. The skin was sterilely prepped and draped, and 1% buffered lidocaine was used for local anesthesia. An 18-gauge Sulmaq catheter was advanced into the peritoneal ascites and fluid aspirated. Upon completion, the catheter was removed. FINDINGS: A total of 10 liters of fluid was removed without immediate complication. Patient tolerated procedure well. IMPRESSION: Ultrasound-guided paracentesis without immediate complications. RADIA
== END 2019-11-05 12:47 | disposition home or self-care (01) ==
LOC: DI 12:46
PROVIDERS: ATTEND Nurse Practitioner Gerontology
DX: K70.31 Alcoholic cirrhosis of liver with ascites (principal)
CPT/HCPCS: 49083

== ENCOUNTER 2019-11-12 12:46 | Outpatient (CLI) | payer MEDICARE, MEDICAID ==
[2019-11-12] MEDS ORDERED: SODIUM CHLORIDE FLUSH 0.9% 10 ML SYRINGE ONE (13:54)
[2019-11-12] MEDS ORDERED: BUFFERED LIDOCAINE 10 ML SYRINGE IU ONE (14:48)
--- NOTE | 2019-11-12 16:07 | Ultrasound Report ---
Reason: ALCOHOLIC CIRRHOSIS OF LIVER WITH ASCITES Procedure Date: 11/12/2019 Accession Number: [id number] / [id number] Procedure: US - Abdominal Paracentesis CPT Code: Final Report FULL RESULT: EXAM: ULTRASOUND-GUIDED PARACENTESIS EXAM DATE: 11/12/2019 02:35 PM. CLINICAL HISTORY: ALCOHOLIC CIRRHOSIS OF LIVER WITH ASCITES. COMPARISON: Abdominal PARACENTESIS 11/05/2019 1:01 PM. TECHNIQUE: Risks, benefits, and alternatives to the procedure were discussed with the patient. All questions answered. Written and verbal consent obtained. Patient was placed in the supine position and the skin overlying the right lower quadrant ascites marked with sonographic guidance. The skin was sterilely prepped and draped, and 1% buffered lidocaine was used for local anesthesia. An 18-gauge [employer] catheter was advanced into the peritoneal ascites and fluid aspirated. Upon completion, the catheter was removed. FINDINGS: A total of 10.9 liters of fluid was removed without immediate complication. Patient tolerated procedure well. IMPRESSION: Ultrasound-guided paracentesis without immediate complications. RADIA
== END 2019-11-12 12:47 | disposition home or self-care (01) ==
LOC: DI 12:46
PROVIDERS: ATTEND Nurse Practitioner Gerontology
DX: K70.31 Alcoholic cirrhosis of liver with ascites (principal)
CPT/HCPCS: 49083

== ENCOUNTER 2019-11-19 12:53 | Outpatient (CLI) | payer MEDICARE, MEDICAID ==
[2019-11-19] MEDS ORDERED: SODIUM CHLORIDE FLUSH 0.9% 10 ML SYRINGE ONE (15:08)
[2019-11-19] MEDS ORDERED: BUFFERED LIDOCAINE 10 ML SYRINGE IU ONE (16:42)
--- NOTE | 2019-11-19 17:51 | OPERATIVE REPORT ---
Operative Report - General Procedure Date: 11/19/19 Pre-Op Diagnosis: Cirrhosis with ascites Procedure Performed: paracentesis Post Op Diagnosis: same - Procedure Note Primary Surgeon: JAILENE Das MD Anesthesia Technique: Local Pathology: n/a Indications: 59yo M with cirrhosis with weekly appointment for paracentesis due to recurrent ascites. He understands all risks, benefits, and alternatives and wishes to proceed. Findings: 8.5 L of clear yellow ascitic fluid drained Complications: none - Other Other Information/Narrative: Patient lays supine on procedure room bed. RLQ are most commonly used for his previous sticks assessed with US and marked. Area cleaned with chloroprep and draped. US is used to inject local into site then advance catheter over needle until fluid withdrawn. Needle removed and tubing set to drain into vacuum- sealed containers. Clear yellow fluid drained until no further fluid present even with pt changing positions onto side and manipulation of catheter. Pt tolerated well. Catheter removed and bandage placed. He will proceed to MAC clinic for albumin infusion.
--- NOTE | 2019-11-20 08:30 | Ultrasound Report ---
Reason: ALCOHOLIC CIRRHOSIS OF LIVER WITH ASCITES Procedure Date: 11/19/2019 Accession Number: [id number] / [id number] Procedure: US - Abdominal Paracentesis CPT Code: Final Report FULL RESULT: EXAM: ULTRASOUND GUIDANCE FOR PROCEDURE EXAM DATE: 11/19/2019 03:00 PM. CLINICAL HISTORY: ALCOHOLIC CIRRHOSIS OF LIVER WITH ASCITES. COMPARISON: ABDOMINAL PARACENTESIS 11/12/2019 12:40 PM. TECHNIQUE: Real-time and static images were obtained. FINDINGS: Ultrasound guidance was provided to Dr. Das, who performed the procedure. IMPRESSION: Ultrasound guidance for paracentesis procedure. RADIA
== END 2019-11-19 12:54 | disposition home or self-care (01) ==
LOC: DI 12:53
PROVIDERS: ATTEND Nurse Practitioner Gerontology
DX: K70.31 Alcoholic cirrhosis of liver with ascites (principal)
CPT/HCPCS: 49083

== ENCOUNTER 2019-11-26 11:49 | Outpatient (CLI) | payer MEDICARE, MEDICAID ==
[2019-11-26] MEDS ORDERED: BUFFERED LIDOCAINE 10 ML SYRINGE ONE (12:58)
[2019-11-26] MEDS ORDERED: BUFFERED LIDOCAINE 10 ML SYRINGE IU ONE (15:13)
--- NOTE | 2019-11-26 19:03 | OPERATIVE REPORT ---
Operative Report - General Procedure Date: 11/26/19 Pre-Op Diagnosis: Ascites secondary to cirrhosis Procedure Performed: paracentesis under ultrasound guidance Post Op Diagnosis: same - Procedure Note Primary Surgeon: Latoya Rincon MD Anesthesia Technique: Local Drain/Tube Type: Pig tail catheter (10.1 liters of ascitis fluid removed Catheter removed after procedure completed) Indications: Jero is a pleasant 59 yo with ascitis secondary to cirrhoisis who required repeated large volume paracentisis. He is set up to undergo an evaluation for TIPS procedure December 22. Will continue paracentisis weekly until evaluation. Pleurx catheter placement was offered, but agree that if he qualifies for TIPS it is a better option. Findings: Large volume ascitis Complications: none - Other Other Information/Narrative: The patient was placed in the supine position. The patient was then prepped and draped in a sterile fashion. A formal timeout was then held according to hospital regulations Ultrasound was preformed and site for large volume paracentisis was identified. Local anesthesia was then tumescence into the sounding tissue . A small incision was created at the site. Ultrasound guided percutaneous access into the abdominal cavity was preformed with the access kit and catheter. The catheter was advanced in the usual fashion the the stylet was removed and good flow confirmed. The catheter was then attached to vacuum seal bottles sequentially in the usual fashion until slow flow and US revealed large reduction of ascitis. A total of 10.1 liters was removed. The catheter was then removed. The wounds were cleaned and dried. Sterile dressings placed. The drapes were removed. . All sponge, sharp and instrument counts were correct. The patient tolerated the procedure without complication. She was discharged to the [facility] clinic for his scheduled albumin.
--- NOTE | 2019-11-27 04:00 | Ultrasound Report ---
Reason: CIRRHOSIS, ASCITES Procedure Date: 11/26/2019 Accession Number: [id number] / [id number] Procedure: US - Abdominal Paracentesis CPT Code: Final Report FULL RESULT: EXAM: ULTRASOUND GUIDANCE FOR PROCEDURE EXAM DATE: 11/26/2019 02:59 PM. CLINICAL HISTORY: CIRRHOSIS, ASCITES. COMPARISON: ABDOMINAL PARACENTESIS 11/19/2019 12:54 PM. TECHNIQUE: Real-time and static images were obtained. FINDINGS: Ultrasound guidance was provided to Dr. Rincon, who performed the procedure. IMPRESSION: Ultrasound guidance for paracentesis procedure. RADIA
== END 2019-11-26 11:50 | disposition home or self-care (01) ==
LOC: DI 11:49
PROVIDERS: ATTEND Physician Assistant Medical
DX: K70.31 Alcoholic cirrhosis of liver with ascites (principal)
CPT/HCPCS: 49083

== ENCOUNTER 2019-12-03 12:14 | Outpatient (CLI) | payer MEDICARE, MEDICAID ==
[2019-12-03] MEDS ORDERED: BUFFERED LIDOCAINE 10 ML SYRINGE ONE (12:30)
--- NOTE | 2019-12-03 16:43 | OPERATIVE REPORT ---
Operative Report - General Procedure Date: 12/03/19 Pre-Op Diagnosis: ascitis secondary to cirrhoisis Procedure Performed: ultrasound guided large volume paracentetisis Post Op Diagnosis: same - Procedure Note Primary Surgeon: Latoya Rincon MD Anesthesia Technique: Local Drain/Tube Type: Other (9.8 liters removed, catheter pulled at the end of the procedure) Findings: large volume ascititis on ultrasound - Other Other Information/Narrative: - The patient was placed in the supine position. The patient was then prepped and draped in a sterile fashion. A formal timeout was then held according to hospital regulations Ultrasound was preformed and site for large volume paracentisis was identified. Local anesthesia was then tumescence into the sounding tissue . A small incision was created at the site. Ultrasound guided percutaneous access into the abdominal cavity was preformed with the access kit and catheter. The catheter was advanced in the usual fashion the the stylet was removed and good flow confirmed. The catheter was then attached to vacuum seal bottles sequentially in the usual fashion until slow flow and US revealed large reduction of ascitis. A total of 9.8 liters was removed. The catheter was then removed. The wounds were cleaned and dried. Sterile dressings placed. The drapes were removed. . All sponge, sharp and instrument counts were correct. The patient tolerated the procedure without complication. She was discharged to the [facility] clinic for his scheduled albumin.
--- NOTE | 2019-12-04 01:46 | Ultrasound Report ---
Reason: CIRRHOSIS, ASCITES Procedure Date: 12/03/2019 Accession Number: [id number] / [id number] Procedure: US - Abdominal Paracentesis CPT Code: Final Report FULL RESULT: EXAM: ULTRASOUND-GUIDED PARACENTESIS EXAM DATE: 12/03/2019 12:24 PM. CLINICAL HISTORY: CIRRHOSIS, ASCITES. COMPARISON: ABDOMINAL PARACENTESIS 11/26/2019 12:47 PM. TECHNIQUE: Risks, benefits, and alternatives to the procedure were discussed with the patient. All questions answered. Written and verbal consent obtained. Patient was placed in the supine position and the skin overlying the ascites marked with sonographic guidance. The skin was sterilely prepped and draped, and 1% buffered lidocaine was used for local anesthesia. An 18-gauge Angiocath was advanced into the peritoneal ascites and fluid aspirated. Upon completion, the catheter was removed. FINDINGS: A total of 10.5 mL of fluid was removed without immediate complication. Patient tolerated procedure well. IMPRESSION: Ultrasound-guided paracentesis without immediate complications. RADIA
== END 2019-12-03 12:15 | disposition home or self-care (01) ==
LOC: DI 12:14
DX: K70.31 Alcoholic cirrhosis of liver with ascites (principal)
CPT/HCPCS: 49083

== ENCOUNTER 2019-12-10 12:12 | Outpatient (CLI) | payer MEDICARE, MEDICAID ==
[2019-12-10] MEDS ORDERED: SODIUM CHLORIDE FLUSH 0.9% 10 ML SYRINGE ONE (14:01)
--- NOTE | 2019-12-10 14:09 | OPERATIVE REPORT ---
Operative Report - General Procedure Date: 12/10/19 Pre-Op Diagnosis: ascititis due to cirrhosis Procedure Performed: large volume paracentesis Post Op Diagnosis: same - Procedure Note Primary Surgeon: Latoya Rincon MD Anesthesia Technique: Local Drain/Tube Type: Other (10.3 liters removed, drain removed at the end of the procedure) Indications: Jero is a very pleasant 59 yo with liver cirrhosis who requires weekly paracenteisis or ascitis Complications: none - Other Other Information/Narrative: The patient was placed in the supine position. The patient was then prepped and draped in a sterile fashion. A formal timeout was then held according to hospital regulations Ultrasound was preformed and site for large volume paracentisis was identified. Local anesthesia was then tumescence into the sounding tissue . A small incision was created at the site. Ultrasound guided percutaneous access into the abdominal cavity was preformed with the access kit and catheter. The catheter was advanced in the usual fashion the the stylet was removed and good flow confirmed. The catheter was then attached to vacuum seal bottles sequentially in the usual fashion until slow flow and US revealed large reduction of ascitis. A total of 10.3 liters were removed. The catheter was then removed. The wounds were cleaned and dried. Sterile dressings placed. The drapes were removed. . All sponge, sharp and instrument counts were correct. The patient tolerated the procedure without complication. She was discharged to the [facility] clinic for his scheduled albumin.
--- NOTE | 2019-12-11 10:06 | Ultrasound Report ---
Reason: CIRRHOSIS, ASCITES Procedure Date: 12/10/2019 Accession Number: [id number] / [id number] Procedure: US - Abdominal Paracentesis CPT Code: Final Report FULL RESULT: EXAM: ULTRASOUND-GUIDED PARACENTESIS EXAM DATE: 12/10/2019 12:19 PM. CLINICAL HISTORY: CIRRHOSIS, ASCITES. COMPARISON: ABDOMINAL PARACENTESIS 12/03/2019 12:24 PM. TECHNIQUE: Ultrasound guidance for paracentesis. The paracentesis was performed by Dr. Rincon. See his note for procedure details. FINDINGS: Volume 4 quadrant ascites. Nodular liver contour consistent with cirrhosis. The technologist notes that a total of 9.8 liters of fluid was removed without immediate complication. IMPRESSION: Ultrasound guidance for paracentesis. RADIA
== END 2019-12-10 12:13 | disposition home or self-care (01) ==
LOC: DI 12:12
PROVIDERS: ATTEND Physician Assistant Medical
DX: K70.31 Alcoholic cirrhosis of liver with ascites (principal)
CPT/HCPCS: 49083

== ENCOUNTER 2019-12-16 08:00 | Outpatient (CLI) | payer MEDICARE, MEDICAID ==
[2019-12-16 14:14] LABS: BASOPHILS % (AUTO) 0.6 %; EOSINOPHILS % (AUTO) 0.3 %; HGB - HEMOGLOBIN 9.2 g/dL (14.0-18.0); LYMPHOCYTES # (AUTO) 0.4 10^3/uL (1.5-3.5); LYMPHOCYTES % (AUTO) 11.1 %; MEAN CORPUSCULAR HEMOGLOBIN 26.9 pg (27.0-31.0); MEAN CORPUSCULAR VOLUME 76.9 fL (80.0-94.0); MEAN PLATELET VOLUME 10.2 fL (7.4-11.4); MONOCYTES # (AUTO) 0.7 10^3/uL (0.0-1.0); MONOCYTES % (AUTO) 20.7 %; NEUTROPHILS # (AUTO) 2.2 10^3/uL (1.5-6.6); PLT - PLATELET COUNT 89 10^3/uL (130-450); RED BLOOD COUNT 3.42 10^6/uL (4.70-6.10); RED CELL DISTRIBUTION WIDTH 19.2 % (12.0-15.0); WHITE BLOOD COUNT 3.3 x10^3/uL (4.8-10.8)
[2019-12-16 14:20] LABS: INR 1.6 (0.8-1.2)
[2019-12-16 14:34] LABS: BILIRUBIN,DIRECT 0.7 mg/dL (0.1-0.5); BILIRUBIN,TOTAL 1.7 mg/dL (0.2-1.0); CALCIUM 8.2 mg/dL (8.5-10.3); CREATININE 1.1 mg/dL (0.6-1.2); TOTAL PROTEIN 6.9 g/dL (6.7-8.2)
== END 2019-12-16 23:59 | disposition home or self-care (01) ==
LOC: LAB.R 08:00
PROVIDERS: ATTEND Nurse Practitioner
DX: K70.31 Alcoholic cirrhosis of liver with ascites (principal)
CPT/HCPCS: 80048; 80076; 85025; 85610

== ENCOUNTER 2019-12-16 12:18 | Outpatient (CLI) | payer MEDICARE, MEDICAID ==
--- NOTE | 2019-12-16 13:50 | OPERATIVE REPORT ---
Operative Report - General Procedure Date: 12/16/19 Pre-Op Diagnosis: Ascites, Cirrhosis Procedure Performed: Paracentesis Post Op Diagnosis: same - Procedure Note Primary Surgeon: Delmy Das MD Anesthesia Technique: Local Pathology: n/a Indications: 59yo M with ascites due to cirrhosis. He gets weekly paracenteses. Presents today for same. He understands all risks, benefits, alternatives, and pt wishes to proceed. Findings: 7 L of clear yellow fluid removed Complications: none - Other Other Information/Narrative: Patient lays supine on procedure room bed. RLQ are most commonly used for his previous sticks assessed with US and marked. Area cleaned with chloroprep and draped. US is used to inject local into site then advance catheter over needle until fluid withdrawn. Needle removed and tubing set to drain into vacuum- sealed containers. Clear yellow fluid drained until no further fluid present even with pt changing positions onto side and manipulation of catheter. Pt tolerated well. Catheter removed and bandage placed. He will proceed to [facility] for albumin infusion.
--- NOTE | 2019-12-17 08:04 | Ultrasound Report ---
Reason: CIRRHOSIS, ASCITES Procedure Date: 12/16/2019 Accession Number: [id number] / [id number] Procedure: US - Abdominal Paracentesis CPT Code: Final Report FULL RESULT: EXAM: ULTRASOUND GUIDANCE FOR PROCEDURE EXAM DATE: 12/16/2019 12:27 PM. CLINICAL HISTORY: CIRRHOSIS, ASCITES. COMPARISON: ABDOMINAL PARACENTESIS 12/10/2019 12:19 PM. TECHNIQUE: Real-time and static images were obtained. FINDINGS: Ultrasound guidance was provided to Dr. Das, who performed the procedure. IMPRESSION: Ultrasound guidance for paracentesis procedure. RADIA
== END 2019-12-16 12:19 | disposition home or self-care (01) ==
LOC: DI 12:18
PROVIDERS: ATTEND Physician Assistant Medical
DX: K70.31 Alcoholic cirrhosis of liver with ascites (principal)
CPT/HCPCS: 49083; 80048; 80076; 85025; 85610

== ENCOUNTER 2019-12-24 12:11 | Outpatient (CLI) | payer MEDICARE, MEDICAID ==
--- NOTE | 2019-12-25 08:23 | Ultrasound Report ---
Reason: CIRRHOSIS, ASCITES Procedure Date: 12/24/2019 Accession Number: [id number] / [id number] Procedure: US - Abdominal Paracentesis CPT Code: Final Report FULL RESULT: EXAM: ULTRASOUND GUIDANCE FOR PROCEDURE EXAM DATE: 12/24/2019 12:09 PM. CLINICAL HISTORY: CIRRHOSIS, ASCITES. COMPARISON: ABDOMINAL PARACENTESIS 12/16/2019 12:27 PM. TECHNIQUE: Real-time and static images were obtained. FINDINGS: Ultrasound guidance was provided to Dr. Pressley, who performed the procedure. IMPRESSION: Ultrasound guidance for paracentesis procedure. RADIA
== END 2019-12-24 12:12 | disposition home or self-care (01) ==
LOC: DI 12:11
PROVIDERS: ATTEND Physician Assistant Medical
DX: K70.31 Alcoholic cirrhosis of liver with ascites (principal)
CPT/HCPCS: 49083

== ENCOUNTER 2019-12-24 17:02 | Inpatient (IN) | payer MEDICARE, MEDICAID ==
--- NOTE | 2019-12-24 17:21 | ED Physician Documentation ---
PD HPI ABD PAIN - Stated complaint Stated Complaint: ABNORMAL LABS - Chief complaint Chief Complaint: General - History obtained from History obtained from: Patient - History of Present Illness Timing - onset: Today (noted today to have significant lab abnormalities. Had scheduled outpt paracentesis and labs drawn concurrent. Results of labs were Hgb 7.2, sodium 119 and Potassium 1.7. These are all acute changes over past 1 weeks (most recent labs 12/16/19 were fairly normal). PCP at got results and called patient to come to ER for eval. His abd is feeling good after the paracentesis, which got 8 1/2 liters of fluid off without complications.) Timing - details: Gradual onset Quality: Aching, Fullness/distended (history of hepatitic liver disease and ascites with paracenteses done regularly. Had outpt one done earlier today and his abd is pretty confortable at this point in the ER.) Improved by: BM. No: Eating Worsened by: No: Eating Associated symptoms: Other (fatigue and some dyspnea on exertion. Lightheaded with standing the past week or so.). No: Fever, Nausea, Vomiting, Diarrhea, Melena, Hematochezia, Dysuria Similar symptoms before: Has not had sx before (had been on diuretic and potassium supplement, which were discontinued by PCP from .) Recently seen: Surgery (had outpt paracentesis done today, Dr. Pressley.) Review of Systems Constitutional: denies: Fever, Chills Nose: denies: Rhinorrhea / runny nose, Congestion, Epistaxis Throat: denies: Sore throat Respiratory: denies: Cough GI: reports: Nausea. denies: Vomiting, Diarrhea, Bloody / black stool : denies: Hematuria Neurologic: reports: Generalized weakness. denies: Near syncope (but lightheaded with standing and activity the past week.), Altered mental status, Headache Endocrine: denies: Easy bruising / bleeding Immunocompromised: denies: Immunocompromised PD PAST MEDICAL HISTORY - Past Medical History Cardiovascular: Hypertension Respiratory: None Endocrine/Autoimmune: None GI: None, Esophageal varices, Hepatitis : None HEENT: None Psych: None Musculoskeletal: None Derm: None - Past Surgical History Past Surgical History: Yes General: EGD, Other Ortho: Carpal Tunnel surgery, Other - Present Medications Home Medications: Ambulatory Orders Medication Instructions Recorded Confirmed No Known Home Medications 12/24/19 12/24/19 - Allergies Allergies/Adverse Reactions: Allergies Allergy/AdvReac Type Severity Reaction Status Date / Time No Known Drug Allergies Allergy Verified 12/24/19 17:13 - Social History Does the pt smoke?: Yes Smoking Status: Current every day smoker Does the pt drink ETOH?: Yes Does the pt have substance abuse?: No - Immunizations Immunizations are current?: No - POLST Patient has POLST: No PD ED PE NORMAL - Vitals Vital signs reviewed: Yes - General General: Alert and oriented X 3, No acute distress, Well developed/nourished - HEENT HEENT: Pharynx benign - Neck Neck: Supple, no meningeal sign, No adenopathy - Cardiac Cardiac: RRR, No murmur - Respiratory Respiratory: Clear bilaterally - Abdomen Abdomen: Non tender, Other (liver feels enlarged to palpation. There is some dullness to percussion c/w ascites, but abd is soft and not distended. No leaking at recent aspiration site. ). No: Normal bowel sounds (decreased) Results - Vitals Vitals: Vital Signs - 24 hr 12/24/19 12/24/19 17:07 17:57 Temperature 36.4 C L Heart Rate 81 76 Respiratory 20 14 Rate Blood Pressure 102/59 L 105/68 O2 Saturation 100 99 Oxygen O2 Source Room air - EKG (time done) 18:34 Rate: Rate (enter#) (72) Rhythm: NSR Raymond: Normal Intervals: Normal [place]. No: Wide QRS QRS: Normal Ischemia: Normal ST segments, Non specific changes. No: ST elevation c/w ischemia, ST depression - Labs Labs: Microbiology 12/24/19 18:05 Occult Blood - Final Stool Laboratory Tests 12/24/19 12/24/19 12/24/19 17:37 17:37 17:37 WBC 2.1 L RBC 2.71 L Hgb 7.2 L Hct 20.4 L MCV 75.3 L MCH 26.6 L MCHC 35.3 RDW 18.2 H Plt Count 71 L MPV 10.1 Neut # (Auto) Not Reportable Lymph # (Auto) Not Reportable [place] # (Auto) Not Reportable Eos # (Auto) Not Reportable Baso # (Auto) Not Reportable Absolute Nucleated RBC Not Reportable Total Counted 100 Band Neuts % (Manual) 2 Abnorm Lymph % (Manual) 0 Nucleated RBC % Not Reportable Neutrophils # (Manual) 1.1 L Lymphocytes # (Manual) 0.3 L Monocytes # (Manual) 0.7 Eosinophils # (Manual) 0.0 Basophils # (Manual) 0.0 Differential Comment MANUAL DIFFERENTIAL Manual Slide Review Indicated WBC Morphology NORMAL APPEARANCE Platelet Estimate DECREASED (<130,000) Platelet Morphology NORMAL APPEARANCE RBC Morph Micro Appear 1+ MICROCYTOSIS PT 19.1 H INR 1.7 H Sodium 120 L* Potassium 1.8 L* Chloride 69 L* Carbon Dioxide 39 H* Anion Gap 12.0 BUN 14 Creatinine 1.0 Estimated GFR (MDRD) 77 L Glucose 96 Calcium 8.0 L Magnesium Iron TIBC % Saturation Transferrin Total Bilirubin 2.0 H AST 55 H ALT 16 Alkaline Phosphatase 58 Total Protein 6.1 L Albumin 3.4 Globulin 2.7 Albumin/Globulin Ratio 1.3 Lipase 47 Blood Type Antibody Screen Crossmatch IS Only 12/24/19 12/24/19 12/24/19 18:05 18:05 18:05 WBC RBC Hgb Hct MCV MCH MCHC RDW Plt Count MPV Neut # (Auto) Lymph # (Auto) [place] # (Auto) Eos # (Auto) Baso # (Auto) Absolute Nucleated RBC Total Counted Band Neuts % (Manual) Abnorm Lymph % (Manual) Nucleated RBC % Neutrophils # (Manual) Lymphocytes # (Manual) Monocytes # (Manual) Eosinophils # (Manual) Basophils # (Manual) Differential Comment Manual Slide Review WBC Morphology Platelet Estimate Platelet Morphology RBC Morph Micro Appear PT INR Sodium Potassium Chloride Carbon Dioxide Anion Gap BUN Creatinine Estimated GFR (MDRD) Glucose Calcium Magnesium 1.7 Iron 14 L TIBC 244 L % Saturation 6 L Transferrin 174 L Total Bilirubin AST ALT Alkaline Phosphatase Total Protein Albumin Globulin Albumin/Globulin Ratio Lipase Blood Type A POSITIVE Antibody Screen NEGATIVE Crossmatch IS Only See Detail PD MEDICAL DECISION MAKING - ED course Complexity details: considered differential (guiac card to lab, stool appeared brown without melena. Presume iron deficiency anemia. No report of blood in peritoneal fluid. His sodium and potassium are severely low. Will start NS and Potassium infusions. Check Mag as well. ), d/w patient Departure - Departure Disposition: 66 [facility] DC/Xfer Clinical Impression: Hyponatremia, Hypokalemia Anemia Qualifiers: Anemia type: iron deficiency Iron deficiency anemia type: other iron deficiency Qualified Code(s): D50.8 - Other iron deficiency anemias Liver failure Qualifiers: Liver failure chronicity: chronic Hepatic coma status: without hepatic coma Qualified Code(s): K72.10 - Chronic hepatic failure without coma Condition: Stable Record reviewed to determine appropriate education?: Yes Discharge Date/Time: 12/24/19 19:09
[2019-12-24 17:49] LABS: BASOPHILS % (AUTO) 0.9 %; EOSINOPHILS % (AUTO) 4.7 %; HGB - HEMOGLOBIN 7.2 g/dL (14.0-18.0); LYMPHOCYTES % (AUTO) 17.4 %; MEAN CORPUSCULAR HEMOGLOBIN 26.6 pg (27.0-31.0); MEAN CORPUSCULAR HGB CONC 35.3 g/dL (32.0-36.0); MEAN CORPUSCULAR VOLUME 75.3 fL (80.0-94.0); MEAN PLATELET VOLUME 10.1 fL (7.4-11.4); MONOCYTES % (AUTO) 32.9 %; NEUTROPHILS % (AUTO) 44.1 %; PLT - PLATELET COUNT 71 10^3/uL (130-450); RED BLOOD COUNT 2.71 10^6/uL (4.70-6.10); RED CELL DISTRIBUTION WIDTH 18.2 % (12.0-15.0); WHITE BLOOD COUNT 2.1 x10^3/uL (4.8-10.8)
[2019-12-24 17:51] LABS: ABNORMAL LYMPHS % (MANUAL) 0 %
[2019-12-24] MEDS ORDERED: POTASSIUM CHLOR 20 MEQ/100 ML 20 MEQ/100 ML BAG IV ONE (17:54)
[2019-12-24] MEDS ORDERED: SODIUM CHLORIDE 0.9% 1,000 ML IV ONE (17:54)
[2019-12-24 18:02] LABS: ALBUMIN 3.4 g/dL (3.2-5.5); ALBUMIN/GLOBULIN RATIO 1.3 (1.0-2.2); TOTAL PROTEIN 6.1 g/dL (6.7-8.2)
[2019-12-24 18:03] LABS: BAND NEUTROPHILS % (MANUAL) 2 %; BASOPHILS % (MANUAL) 1 %; LYMPHOCYTES # (MANUAL) 0.3 10^3/uL (1.5-3.5); LYMPHOCYTES % (MANUAL) 13 %; MONOCYTES # (MANUAL) 0.7 10^3/uL (0.0-1.0)
[2019-12-24 18:04] LABS: DIFFERENTIAL COMMENT MANUAL DIFFERENTIAL; PLATELET ESTIMATE, MANUAL DECREASED (<130,000) (NORMAL); PLATELET MORPHOLOGY NORMAL APPEARANCE (NORMAL)
[2019-12-24] MEDS ORDERED: SODIUM CHLORIDE 0.9% 1,000 ML IV STA (18:06)
[2019-12-24] MEDS: POTASSIUM CHLOR 10 MEQ/100 ML 10 MEQ/100 ML BAG IV SCH ×2 (18:18→19:22)
[2019-12-24] MEDS ORDERED: POTASSIUM CHLORIDE 20 MEQ TABLET PO ONE (18:18)
[2019-12-24 18:30] LABS: INR 1.7 (0.8-1.2); PT - PROTHROMBIN TIME 19.1 secs (9.9-12.6)
[2019-12-24] MEDS ORDERED: SODIUM CHLORIDE FLUSH 0.9% 10 ML SYRINGE IVP PRN (18:31)
[2019-12-24] MEDS ORDERED: ACETAMINOPHEN 325 MG TABLET PO PRN (18:31)
[2019-12-24] MEDS ORDERED: ONDANSETRON 4 MG/2 ML VIAL IVP PRN (18:31)
[2019-12-24 18:41] LABS: % IRON SATURATION 6 % (20-50); IRON 14 ug/dL (45-182); TOTAL IRON BINDING CAPACITY 244 ug/dL (250-450); TRANSFERRIN 174 mg/dL (180-329)
--- NOTE | 2019-12-24 19:23 | HISTORY & PHYSICAL EXAMINATION ---
Chief Complaint - Chief Complaint Chief Complaint: abnormal labs History of Present Illness - Admitted From Admitted From:: [facility] ED - History Obtained From Records Reviewed: yes History obtained from: patient Exam Limitations: none - History of Present Illness HPI Comment/Other: Patient is a 59-year-old male with history of hepatitis C, cirrhosis and associated ascites who presented to the ED at the request of his outpatient physicians. He went to the [facility] clinic for a paracentesis today. About 8 to 9 L of fluid was extracted. He also had lab work done. He was subsequently called and asked to come to the emergency room because his potassium on the routine labs done was found to be 1.8, sodium 120 and hemoglobin 7.2. The patient does not have any GI bleed. As a result of the above he is being admitted for further treatment. At bedside he denies chest pain. He has some dyspnea but explains that it is because of his significant abdominal distention pushing up into his thoracic cavity. He denies fever, chills, nausea or vomiting. He has 2+ lower extremity pitting edema. His abdomen is somewhat protuberant despite the 8 L of fluid extracted. He explains that he was at his baseline and functioning very well. He was planning to go for a fishing trip tomorrow before he was called to come to the hospital. The rest of his history is unremarkable. History - Past Medical History Cardiovascular: reports: Hypertension, High cholesterol Respiratory: reports: None Endocrine/Autoimmune: reports: None GI: reports: None, Esophageal varices, Hepatitis, Other (cirrhosis. osteoarthritis, ) : reports: None HEENT: reports: None Psych: reports: None Musculoskeletal: reports: None Derm: reports: None MRSA Hx?: No - Past Surgical History General: reports: EGD, Other Ortho: reports: Carpal Tunnel surgery, Other (cervical spine fusion) - Family & Social History Family History: Mother: Alive and Well, Father: (Father had dementia) Social History Notes: He lives at home with his mother. He has significantly cut back on the number of cigarettes he smokes to about 1 a day. He started drinking at the age of 20. He has never been and has no children. He stopped doing recreational substances in his 20s. - POLST Patient has POLST: No POLST Status: Full Code Meds/Allgy - Home Medications Home Medications: Ambulatory Orders Medication Instructions Recorded Confirmed No Known Home Medications 12/24/19 12/24/19 - Allergies Allergies/Adverse Reactions: Allergies Allergy/AdvReac Type Severity Reaction Status Date / Time No Known Drug Allergies Allergy Verified 12/24/19 17:13 Review of Systems - Constitutional Constitutional: denies: Fatigue, Fever, Chills, Weakness - Eyes Eyes: denies: Pain, Vision loss - Ears, Nose & Throat Ears, Nose & Throat: reports: Nasal discharge. denies: Vertigo, Sore throat - Cardiovascular Cariovascular: reports: Edema. denies: Irregular heart rate, Palpitations, Chest pain, Lightheadedness, Syncope - Respiratory Respiratory: denies: Cough, Sputum production, Wheezing, SOB at rest, SOB with exertion - Gastrointestinal Gastrointestinal: reports: Abdominal distention. denies: Constipation, Diarrhea, Bloody stools, Nausea, Vomiting, Coffee grounds emesis, Reflux/h eartburn - Genitourinary Genitourinary: denies: Dysuria, Frequency, Urgency, Hematuria - Musculoskeletal Musculoskeletal: denies: Muscle pain, Back pain, Muscle aches, Stiffness - Integumentary Integumentary: reports: Rash (Mild excuriation on the right side of abdomen). denies: Pruritis, Lesions - Neurological Neurological: denies: General weakness, Headache, Dizziness - Psychiatric Psychiatric: denies: Depression, Anxiety - Endocrine Endocrine: denies: Polyuria, Polydypsia - Hematologic/Lymphatic Hematologic/Lymphatic: reports: Anemia. denies: Bruising, Petechiae Prior Level of Functionality: Patient is independent of activities of daily living Exam - Vital Signs Vital Signs: Vital Signs x48h Temp Pulse Resp BP Pulse Ox 12/24/19 18:35 72 17 110/65 100 12/24/19 17:57 76 14 105/68 99 12/24/19 17:07 36.4 C L 81 20 102/59 L 100 - Physical Exam General Appearance: positive: No acute distress, Alert Eyes Bilateral: positive: PERRL, EOMI ENT: positive: No signs of dehydration Neck: positive: No JVD, Trachea midline Respiratory: positive: Chest non-tender, No respiratory distress, Breath sounds nml. negative: Wheezes, Rales, Rhonchi Cardiovascular: positive: Regular rate & rhythm Abdomen: positive: Non-tender, Nml bowel sounds, Other (Distended abdomen) Rectal: positive: Stool - heme NEG Back: positive: Nml inspection Skin: positive: Color nml, Warm, Dry, Skin rash (excuriation on right side of abdomen) Extremities: positive: Non-tender, Nml appearance, Pedal edema (2+ pitting) Neurologic/Psychiatric: positive: Oriented x3, CN's nml (2-12), Motor nml, Sensation nml, Mood/affect nml Conclusion/Plan - Problem List (1) Anemia Conclusion/Plan: Patient being transfused 1 unit of blood per recommendation from hepatology. We will recheck H&H in the a.m. Patient was guaiac negative. Patient would likely need supplemental iron orally upon discharge. Iron level was 14, TIBC 244, percent saturation 6, transferrin 174 Qualifiers: Anemia type: iron deficiency Iron deficiency anemia type: other iron defici ency Qualified Code(s): D50.8 - Other iron deficiency anemias (2) Hypokalemia Conclusion/Plan: Patient's potassium was 1.8. Will replace and recheck a.m. labs. We will also give patient 2g magnesium sulfate IV. His magnesium was 1.7. (3) Hyponatremia Conclusion/Plan: Suspect likely hypovolemic hyponatremia. We will fluid restrict to not more than 2 L a day total. (4) Liver failure Conclusion/Plan: INR was 1.7. 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 Qualifiers: Liver failure chronicity: chronic Hepatic coma status: without hepatic coma Qualified Code(s): K72.10 - Chronic hepatic failure without coma (5) Ascites Conclusion/Plan: This is secondary to cirrhosis Qualifiers: Ascites type: due to alcoholic cirrhosis Qualified Code(s): K70.31 - Alcoholic cirrhosis of liver with ascites (6) Cirrhosis Conclusion/Plan: Suspected to be due to alcohol abuse but cannot rule out contribution from hepatitis C Qualifiers: Hepatic cirrhosis type: alcoholic cirrhosis Ascites presence: with ascites Qualified Code(s): K70.31 - Alcoholic cirrhosis of liver with ascites - Lab Results Fish Bones: 12/24/19 17:37 12/24/19 17:37 Core Measures - Anticipated LOS I expect patient to be DC'd or transferred within 96 hours.: Yes - DVT/VTE - Prophylaxis VTE/DVT Device ordered at admit?: Yes
[2019-12-24] MEDS: PANTOPRAZOLE 40 MG TABLET PO SCH (19:55)
[2019-12-24] MEDS ORDERED: POTASSIUM CHLORIDE INJ 40 MEQ in SODIUM CHLORIDE 0.9% 480 ML IV ONE (20:00)
[2019-12-24] MEDS ORDERED: MAGNESIUM SULFATE 2 GRAM 2 GM/50 ML BAG IV ONE (20:22)
--- NOTE | 2019-12-24 20:51 | XRAY Report ---
Reason: SOB Procedure Date: 12/24/2019 Accession Number: [id number] / [id number] Procedure: XR - Chest 1 View X-Ray CPT Code: 52202 Final Report FULL RESULT: EXAM: CHEST RADIOGRAPHY EXAM DATE: 12/24/2019 07:35 PM. CLINICAL HISTORY: SOB. COMPARISON: POST PORT PLACEMENT 1V CXR 10/07/2019 11:50 AM. TECHNIQUE: 1 view. FINDINGS: Lungs/Pleura: No focal opacities evident. No pleural effusion. No pneumothorax. Mediastinum: Within exam limitations, the cardiomediastinal contour is normal. Other: Right-sided Port-A-Cath tip in the lower SVC. IMPRESSION: No active cardiopulmonary disease RADIA
[2019-12-24] MEDS: SODIUM CHLORIDE FLUSH 0.9% 10 ML SYRINGE IVP SCH (23:51)
[2019-12-25] MEDS: PANTOPRAZOLE 40 MG TABLET PO SCH (06:15)
[2019-12-25] MEDS ORDERED: FUROSEMIDE 40 MG/4 ML VIAL IVP STA (07:16)
[2019-12-25 07:57] LABS: BASOPHILS % (AUTO) 0.5 %; EOSINOPHILS % (AUTO) 0.5 %; HGB - HEMOGLOBIN 8.2 g/dL (14.0-18.0); LYMPHOCYTES % (AUTO) 14.6 %; MEAN CORPUSCULAR HEMOGLOBIN 27.2 pg (27.0-31.0); MEAN CORPUSCULAR HGB CONC 35.2 g/dL (32.0-36.0); MEAN CORPUSCULAR VOLUME 77.4 fL (80.0-94.0); MEAN PLATELET VOLUME 10.4 fL (7.4-11.4); MONOCYTES % (AUTO) 26.1 %; NEUTROPHILS % (AUTO) 57.8 %; PLT - PLATELET COUNT 63 10^3/uL (130-450); RED BLOOD COUNT 3.01 10^6/uL (4.70-6.10); RED CELL DISTRIBUTION WIDTH 18.4 % (12.0-15.0)
[2019-12-25] MEDS: FERROUS SULFATE 325 MG TABLET PO SCH (08:00)
[2019-12-25] MEDS ORDERED: FUROSEMIDE 20 MG/2 ML VIAL IVP SCH (08:00)
[2019-12-25] MEDS: MAGNESIUM OXIDE 400 MG TABLET PO SCH (08:00)
[2019-12-25] MEDS: SODIUM CHLORIDE FLUSH 0.9% 10 ML SYRINGE IVP SCH ×2 (08:01→17:20)
[2019-12-25 08:11] LABS: ALBUMIN 2.9 g/dL (3.2-5.5); ALBUMIN/GLOBULIN RATIO 1.1 (1.0-2.2); BILIRUBIN,TOTAL 2.9 mg/dL (0.2-1.0); CALCIUM 7.6 mg/dL (8.5-10.3); CREATININE 0.9 mg/dL (0.6-1.2); TOTAL PROTEIN 5.5 g/dL (6.7-8.2)
[2019-12-25] MEDS ORDERED: POTASSIUM CHLORIDE 20 MEQ TABLET PO SCH (08:16)
[2019-12-25 08:29] LABS: ABNORMAL LYMPHS % (MANUAL) 0 %; BAND NEUTROPHILS % (MANUAL) 0 %; BASOPHILS % (MANUAL) 1 %; LYMPHOCYTES # (MANUAL) 0.4 10^3/uL (1.5-3.5); LYMPHOCYTES % (MANUAL) 18 %; MONOCYTES # (MANUAL) 0.3 10^3/uL (0.0-1.0)
[2019-12-25 08:30] LABS: DIFFERENTIAL COMMENT MANUAL DIFFERENTIAL; PLATELET ESTIMATE, MANUAL DECREASED (<130,000) (NORMAL); PLATELET MORPHOLOGY NORMAL APPEARANCE (NORMAL)
[2019-12-25] MEDS: POTASSIUM CHLOR 10 MEQ/100 ML 10 MEQ/100 ML BAG IV SCH ×8 (09:17→18:29)
--- NOTE | 2019-12-25 09:25 | ADVANCE CARE PLANNING NOTE ---
Advance Care Planning - Planning Encounter Date: 12/25/19 Time: 09:00 Purpose: advance care plan Parties in Attendance: pt, me and nurse Ms. Shy Low. Decisional Capacity of the Patient: pt is alert and oriented. he has full capacity to make his own decision. - Diagnosis for Encounter (1) Anemia Qualifiers: Anemia type: iron deficiency Iron deficiency anemia type: other iron deficiency Qualified Code(s): D50.8 - Other iron deficiency anemias Summary: (2) Hypokalemia (3) Hyponatremia (4) alcoholic Liver failure (5) Ascites (6) Cirrhosis (7) pancytopenia - Encounter Subjective/Patient's Story: pt is a pleasant 59-yrs old male. he report he still has a quality of his life. he enjoyed fishing. he plan to fish at [employer]. he state he visited her infusion pharmacist in recently. they d/c all his home meds because his diuretics meds caused her potassium and sodium very lower. pt has no home meds now. the [facility] say patient could be held for tips procedure. Now [facility] is close for the procedure because Covid 19, so patient still wish he could be have tips procedure procedure for him. Patient state otherwise he is doing fine and he is eating ok. but when he ascites become the issue and his belly become large, then he lost his appetite and he only ate a very little, so he came here to [facility] to the paracentesis likely yesterday. We discussed his quality life. he believe he still has a quality life. he is enjoying his fishing and his family.we discussed the CODE STATUS and he still wanted to continue keep him full code. Objective/Medical Story: This is a 59 years old pleasant male with a past family medical history for significant alcoholism and alcohol caused hepatic failure. he currentl follow the infusion pharmacist. He frequently come to the [facility] medical clinic to do paracentesis, and that he have a history of disturbance a of the electrolytes, pancytopenia which was most likely caused by his hepatic failure. His meld score is 25 points with 3 months mortality rate would be 19.6%. Goals of Care: quality of life and advance care plan Plan: keep full code as previous, and continue followup his infusion pharmacist Code Status: Attempt Resuscitation Time spent on advance care plannin
--- NOTE | 2019-12-25 09:37 | PHARMACY PROGRESS NOTE ---
- Best Possible Medication History Admit Date and Time: 12/24/19 1831 Processed by: Pharmacy Medication History completed: Yes Secondary Source(s): Physician records, Pharmacy records As the person ultimately responsible for medication therapy, providers are able to order a medication from an existing home medication list in [facility] via the "Reconcile Routine" prior to Confirmation of that medication by technical sales support specialist. Such practice is discouraged except when the physician, in their clinical judgment, deems that a medical need exists for a medication without regard to previous use.
--- NOTE | 2019-12-25 16:28 | PROVIDER PROGRESS NOTE ---
Subjective - Prog Note Date Prog Note Date: 12/25/19 - Subjective Pt reports feeling: Improved Subjective: pt report he feel better. he denies fever, chill, shortness of breath, chest pain. he hope he could be d/c for his fishing trip. I explained the reason we can d/c him now, his potassium and sodium are still very lower, he understood and agreed to stay in the hospital. pt report his nurse substance abuse stop all his diuretics meds, and he has no meds at home because his hx of severe hyponatremia and hypokalemia. Current Medications - Current Medications Current Medications: Active Medications Acetaminophen (Tylenol) 650 mg PO Q4HR PRN PRN Reason: Pain 1 to 4 Ferrous Sulfate (Feosol) 325 mg PO DAILYWM [facility] Last Admin: 12/25/19 08:00 Dose: 325 mg Magnesium Oxide (Mag Ox) 400 mg PO DAILYWM [facility] Last Admin: 12/25/19 08:00 Dose: 400 mg Ondansetron HCl (Zofran Inj) 4 mg IVP Q6HR PRN PRN Reason: Nausea / Vomiting Pantoprazole Sodium (Protonix) 40 mg PO QDAC [facility] Last Admin: 12/25/19 06:15 Dose: 40 mg Sodium Chloride (Normal Saline Flush 0.9%) 10 ml IVP PRN PRN PRN Reason: NEEDED PER PROVIDER ORDERS Sodium Chloride (Normal Saline Flush 0.9%) 10 ml IVP 0100,0900,1700 [facility] Last Admin: 12/25/19 08:01 Dose: 10 ml No Known Home Medications 12/24/19 Objective - Vital Signs/Intake & Output Vital Signs: Vital Signs x48h Temp Pulse Resp BP Pulse Ox 12/25/19 15:33 36.3 C L 78 19 109/76 99 12/25/19 11:34 36.7 C 72 18 110/79 97 Intake & Output: Intake & Output 12/22/19 12/23/19 12/24/19 12/25/19 23:59 23:59 23:59 23:59 Intake Total 1208.67 1831.666 Output Total 750 1990 Balance 458.67 -158.334 - Objective General Appearance: positive: No acute distress, Alert. negative: Lethargic Eyes Bilateral: positive: Normal inspection, PERRL, No lid inflammation ENT: positive: ENT inspection nml, Pharynx nml, No signs of dehydration. negative: Purulent nasal drainage Neck: positive: Nml inspection, Thyroid nml, No JVD, Trachea midline. negative: Thyromegaly, Stiff neck, Tracheal deviation Respiratory: positive: Chest non-tender, No respiratory distress, Breath sounds nml. negative: Wheezes, Rales, Rhonchi Cardiovascular: positive: Regular rate & rhythm, No murmur, No gallop. negative: Irregularly irregular, Tachycardia, Bradycardia, JVD present, Systolic murmur, Diastolic murmur Peripheral Pulses: 2+ Radial (R), 2+ Radial (L), 2+ Dorsalis pedis (R), 2+ Dorsalis pedis (L) Abdomen: positive: Non-tender, Nml bowel sounds. negative: Tenderness, Guarding, Rebound Back: positive: Nml inspection. negative: CVA tenderness (R), CVA tenderness (L) Skin: positive: Color nml, No rash, Warm, Dry. negative: Cyanosis, Diaphoresis, Pallor Extremities: positive: Non-tender, Full ROM, Nml appearance. negative: Calf tenderness, Smita's sign/cords Neurologic/Psychiatric: positive: Oriented x3, Motor nml, Sensation nml, Mood/affect nml. negative: Weakness, Sensory loss, Facial droop, Slurred/abnml speech, Depressed mood/affect - Lab Results Fish Bones: 12/25/19 07:41 12/25/19 07:41 Other Labs: Lab Results x24hrs 12/25/19 12/25/19 12/24/19 Range/Units 07:41 07:41 20:39 WBC 2.0 L* (4.8-10.8) x10^3/uL RBC 3.01 L (4.70-6.10) 10^6/uL Hgb 8.2 L (14.0-18.0) g/dL Hct 23.3 L (42.0-52.0) % MCV 77.4 L (80.0-94.0) fL MCH 27.2 (27.0-31.0) pg MCHC 35.2 (32.0-36.0) g/dL RDW 18.4 H (12.0-15.0) % Plt Count 63 L (130-450) 10^3/uL MPV 10.4 (7.4-11.4) fL Neut # (Auto) Not Reportable Lymph # (Auto) Not Reportable [place] # (Auto) Not Reportable Eos # (Auto) Not Reportable Baso # (Auto) Not Reportable Absolute Nucleated RBC Not Reportable Total Counted 100 Band Neuts % (Manual) 0 (0 - 10) % Abnorm Lymph % (Manual) 0 % Nucleated RBC % Not Reportable Neutrophils # (Manual) 1.3 L (1.5-6.6) 10^3/uL Lymphocytes # (Manual) 0.4 L (1.5-3.5) 10^3/uL Monocytes # (Manual) 0.3 (0.0-1.0) 10^3/uL Eosinophils # (Manual) 0.0 (0-0.7) 10^3/uL Basophils # (Manual) 0.0 (0-0.1) 10^3/uL Differential Comment MANUAL DIFFERENTIAL Manual Slide Review Indicated WBC Morphology (NORMAL) Platelet Estimate DECREASED (<130,000) (NORMAL) Platelet Morphology NORMAL APPEARANCE (NORMAL) RBC Morph Micro Appear 1+ ANISOCYTOSIS (NORMAL) PT (9.9-12.6) secs INR (0.8-1.2) Sodium 123 L (135-145) mmol/L Potassium 2.3 L* (3.5-5.0) mmol/L Chloride 78 L* (101-111) mmol/L Carbon Dioxide 33 H (21-32) mmol/L Anion Gap 12.0 (6-13) BUN 12 (6-20) mg/dL Creatinine 0.9 (0.6-1.2) mg/dL Estimated GFR (MDRD) 87 L (>89) Glucose 94 (70-100) mg/dL Calcium 7.6 L (8.5-10.3) mg/dL Magnesium (1.7-2.8) mg/dL Iron (45-182) ug/dL TIBC (250-450) ug/dL % Saturation (20-50) % Transferrin (180-329) mg/dL Total Bilirubin 2.9 H (0.2-1.0) mg/dL AST 50 H (10-42) IU/L ALT 15 (10-60) IU/L Alkaline Phosphatase 54 (42-121) IU/L Ammonia 49.3 H (7-35) umol/L Total Protein 5.5 L (6.7-8.2) g/dL Albumin 2.9 L (3.2-5.5) g/dL Globulin 2.6 (2.1-4.2) g/dL Albumin/Globulin Ratio 1.1 (1.0-2.2) Lipase (22-51) U/L Blood Type Antibody Screen Crossmatch IS Only 12/24/19 12/24/19 12/24/19 Range/Units 18:05 18:05 18:05 WBC (4.8-10.8) x10^3/uL RBC (4.70-6.10) 10^6/uL Hgb (14.0-18.0) g/dL Hct (42.0-52.0) % MCV (80.0-94.0) fL MCH (27.0-31.0) pg MCHC (32.0-36.0) g/dL RDW (12.0-15.0) % Plt Count (130-450) 10^3/uL MPV (7.4-11.4) fL Neut # (Auto) Lymph # (Auto) [place] # (Auto) Eos # (Auto) Baso # (Auto) Absolute Nucleated RBC Total Counted Band Neuts % (Manual) (0 - 10) % Abnorm Lymph % (Manual) % Nucleated RBC % Neutrophils # (Manual) (1.5-6.6) 10^3/uL Lymphocytes # (Manual) (1.5-3.5) 10^3/uL Monocytes # (Manual) (0.0-1.0) 10^3/uL Eosinophils # (Manual) (0-0.7) 10^3/uL Basophils # (Manual) (0-0.1) 10^3/uL Differential Comment Manual Slide Review WBC Morphology (NORMAL) Platelet Estimate (NORMAL) Platelet Morphology (NORMAL) RBC Morph Micro Appear (NORMAL) PT (9.9-12.6) secs INR (0.8-1.2) Sodium (135-145) mmol/L Potassium (3.5-5.0) mmol/L Chloride (101-111) mmol/L Carbon Dioxide (21-32) mmol/L Anion Gap (6-13) BUN (6-20) mg/dL Creatinine (0.6-1.2) mg/dL Estimated GFR (MDRD) (>89) Glucose (70-100) mg/dL Calcium (8.5-10.3) mg/dL Magnesium 1.7 (1.7-2.8) mg/dL Iron 14 L (45-182) ug/dL TIBC 244 L (250-450) ug/dL % Saturation 6 L (20-50) % Transferrin 174 L (180-329) mg/dL Total Bilirubin (0.2-1.0) mg/dL AST (10-42) IU/L ALT (10-60) IU/L Alkaline Phosphatase (42-121) IU/L Ammonia (7-35) umol/L Total Protein (6.7-8.2) g/dL Albumin (3.2-5.5) g/dL Globulin (2.1-4.2) g/dL Albumin/Globulin Ratio (1.0-2.2) Lipase (22-51) U/L Blood Type A POSITIVE Antibody Screen NEGATIVE Crossmatch IS Only See Detail 12/24/19 12/24/19 12/24/19 Range/Units 17:37 17:37 17:37 WBC 2.1 L (4.8-10.8) x10^3/uL RBC 2.71 L (4.70-6.10) 10^6/uL Hgb 7.2 L (14.0-18.0) g/dL Hct 20.4 L (42.0-52.0) % MCV 75.3 L (80.0-94.0) fL MCH 26.6 L (27.0-31.0) pg MCHC 35.3 (32.0-36.0) g/dL RDW 18.2 H (12.0-15.0) % Plt Count 71 L (130-450) 10^3/uL MPV 10.1 (7.4-11.4) fL Neut # (Auto) Not Reportable Lymph # (Auto) Not Reportable [place] # (Auto) Not Reportable Eos # (Auto) Not Reportable Baso # (Auto) Not Reportable Absolute Nucleated RBC Not Reportable Total Counted 100 Band Neuts % (Manual) 2 (0 - 10) % Abnorm Lymph % (Manual) 0 % Nucleated RBC % Not Reportable Neutrophils # (Manual) 1.1 L (1.5-6.6) 10^3/uL Lymphocytes # (Manual) 0.3 L (1.5-3.5) 10^3/uL Monocytes # (Manual) 0.7 (0.0-1.0) 10^3/uL Eosinophils # (Manual) 0.0 (0-0.7) 10^3/uL Basophils # (Manual) 0.0 (0-0.1) 10^3/uL Differential Comment MANUAL DIFFERENTIAL Manual Slide Review Indicated WBC Morphology NORMAL APPEARANCE (NORMAL) Platelet Estimate DECREASED (<130,000) (NORMAL) Platelet Morphology NORMAL APPEARANCE (NORMAL) RBC Morph Micro Appear 1+ MICROCYTOSIS (NORMAL) PT 19.1 H (9.9-12.6) secs INR 1.7 H (0.8-1.2) Sodium 120 L* (135-145) mmol/L Potassium 1.8 L* (3.5-5.0) mmol/L Chloride 69 L* (101-111) mmol/L Carbon Dioxide 39 H* (21-32) mmol/L Anion Gap 12.0 (6-13) BUN 14 (6-20) mg/dL Creatinine 1.0 (0.6-1.2) mg/dL Estimated GFR (MDRD) 77 L (>89) Glucose 96 (70-100) mg/dL Calcium 8.0 L (8.5-10.3) mg/dL Magnesium (1.7-2.8) mg/dL Iron (45-182) ug/dL TIBC (250-450) ug/dL % Saturation (20-50) % Transferrin (180-329) mg/dL Total Bilirubin 2.0 H (0.2-1.0) mg/dL AST 55 H (10-42) IU/L ALT 16 (10-60) IU/L Alkaline Phosphatase 58 (42-121) IU/L Ammonia (7-35) umol/L Total Protein 6.1 L (6.7-8.2) g/dL Albumin 3.4 (3.2-5.5) g/dL Globulin 2.7 (2.1-4.2) g/dL Albumin/Globulin Ratio 1.3 (1.0-2.2) Lipase 47 (22-51) U/L Blood Type Antibody Screen Crossmatch IS Only ABX Reporting Has patient been on IV antibiotics over the past 48 hours?: No Assessment/Plan - Problem List (1) Anemia Impression: 12/24 improved, HGB 8.2, pt had one unit of blood transfused. occult stool test was negative for GI bleed. pt also present iron deficiency. order PO iron continue lab monitor (2) Hypokalemia Conclusion/Plan: 12/24 improved, acute on chronic hypokalemia. but still significant lower. today K is 2.3. pt denies chest pain, palpitations. it is likely caused by liver failure, and kidney malfunction. continue replacement of potassium and lab monitor closely, check CMP at this afternoon. (3) Hyponatremia Conclusion/Plan: 12/24 improved but still lower, acute on chronic hyponatremia. Na is 123. suspect hypervolemic with hyponatramia. pt has liver failure, likely the cause fluid restriction, Dr. Han started once of lasix continue lab monitor (4)hypochloremia 12/24 improved. pt has liver failure, likely the cause. continue fluid restriction, and lab monitor (5) Liver failure Conclusion/Plan: 12/24 Pt's MELD score is 25 with 19.6% mortality rate on 3 months. pt report his nurse substance abuse stop all his diuretics meds, and he has no meds at home because his hx of severe hyponatremia and hypokalemia. advise Patient continue follow-up with his nurse substance abuse upon discharge. (6) Ascites Conclusion/Plan: stable now. pt had 8 liter of fluid from his paracentesis on yesterday, and had IV of albumin (7) Cirrhosis Conclusion/Plan: pt report he had hx of alcoholic hepatic failure with cirrhosis. and followup his nurse substance abuse in . (8) pancytopenia pt's WBC is 2, anemia and lower platelet as well. it is likely from pt's liver failure. neutropenia precaution, continue lab monitor, continue hold blood thinner. Qualifiers: Anemia type: iron deficiency Iron deficiency anemia type: other iron deficiency Qualified Code(s): D50.8 - Other iron deficiency anemias
[2019-12-25 16:52] LABS: ALBUMIN 2.8 g/dL (3.2-5.5); BILIRUBIN,TOTAL 2.3 mg/dL (0.2-1.0); CALCIUM 7.6 mg/dL (8.5-10.3); CREATININE 0.9 mg/dL (0.6-1.2); TOTAL PROTEIN 5.6 g/dL (6.7-8.2)
[2019-12-25] MEDS ORDERED: POTASSIUM CHLORIDE 20 MEQ TABLET PO ONE (16:56)
[2019-12-25] MEDS ORDERED: SODIUM CHLORIDE 1 GM TABLET PO ONE (17:00)
[2019-12-26] MEDS: SODIUM CHLORIDE FLUSH 0.9% 10 ML SYRINGE IVP SCH ×2 (01:39→09:15)
[2019-12-26] MEDS: PANTOPRAZOLE 40 MG TABLET PO SCH (05:11)
[2019-12-26 05:26] LABS: BASOPHILS % (AUTO) 1.4 %; EOSINOPHILS # (AUTO) 0.1 10^3/uL (0.0-0.7); EOSINOPHILS % (AUTO) 2.9 %; HGB - HEMOGLOBIN 8.4 g/dL (14.0-18.0); LYMPHOCYTES # (AUTO) 0.4 10^3/uL (1.5-3.5); LYMPHOCYTES % (AUTO) 20.3 %; MEAN CORPUSCULAR HEMOGLOBIN 26.3 pg (27.0-31.0); MEAN CORPUSCULAR HGB CONC 33.9 g/dL (32.0-36.0); MEAN CORPUSCULAR VOLUME 77.7 fL (80.0-94.0); MEAN PLATELET VOLUME 10.2 fL (7.4-11.4); MONOCYTES # (AUTO) 0.5 10^3/uL (0.0-1.0); MONOCYTES % (AUTO) 23.2 %; NEUTROPHILS # (AUTO) 1.1 10^3/uL (1.5-6.6); NEUTROPHILS % (AUTO) 52.2 %; PLT - PLATELET COUNT 65 10^3/uL (130-450); RED BLOOD COUNT 3.19 10^6/uL (4.70-6.10); RED CELL DISTRIBUTION WIDTH 18.7 % (12.0-15.0); WHITE BLOOD COUNT 2.1 x10^3/uL (4.8-10.8)
[2019-12-26 05:40] LABS: ALBUMIN 2.8 g/dL (3.2-5.5); BILIRUBIN,TOTAL 2.1 mg/dL (0.2-1.0); CALCIUM 7.8 mg/dL (8.5-10.3); CREATININE 0.8 mg/dL (0.6-1.2); TOTAL PROTEIN 5.6 g/dL (6.7-8.2)
[2019-12-26 05:52] LABS: PLATELET ESTIMATE, MANUAL DECREASED (<130,000) (NORMAL); PLATELET MORPHOLOGY NORMAL APPEARANCE (NORMAL)
[2019-12-26] MEDS ORDERED: FUROSEMIDE 20 MG/2 ML VIAL IVP SCH (08:00)
[2019-12-26] MEDS ORDERED: POTASSIUM CHLORIDE 20 MEQ TABLET PO SCH (08:00)
[2019-12-26] MEDS ORDERED: SODIUM CHLORIDE 1 GM TABLET PO SCH (08:00)
[2019-12-26] MEDS ORDERED: MAGNESIUM SULFATE 2 GRAM 2 GM/50 ML BAG IV SCH (08:00)
[2019-12-26] MEDS: MAGNESIUM OXIDE 400 MG TABLET PO SCH (09:13)
[2019-12-26] MEDS: FERROUS SULFATE 325 MG TABLET PO SCH (09:14)
[2019-12-26] MEDS: POTASSIUM CHLOR 10 MEQ/100 ML 10 MEQ/100 ML BAG IV SCH ×6 (09:14→13:56)
[2019-12-26] MEDS ORDERED: SPIRONOLACTONE 25 MG TABLET PO SCH (09:22)
[2019-12-26 13:24] LABS: BILIRUBIN,URINE NEGATIVE (NEGATIVE); GLUCOSE, URINE (UA) NEGATIVE (NEGATIVE); KETONES,URINE (UA) NEGATIVE (NEGATIVE); LEUKOCYTE ESTERASE, URINE NEGATIVE (NEGATIVE); NITRITE,URINE NEGATIVE (NEGATIVE); OCCULT BLOOD,URINE NEGATIVE (NEGATIVE); PROTEIN,URINE NEGATIVE (NEGATIVE); UROBILINOGEN,URINE 4 E.U./dL (NORMAL)
[2019-12-26 13:38] LABS: CLARITY,URINE CLEAR (CLEAR)
[2019-12-26 15:00] LABS: CALCIUM 7.9 mg/dL (8.5-10.3); CREATININE 0.8 mg/dL (0.6-1.2)
--- NOTE | 2019-12-26 15:27 | Discharge Plan ---
Discharge Plan Problem Reviewed?: Yes Disposition: Home, Self Care Condition: Poor Prescriptions: Potassium Chloride 20 meq PO DAILY #10 packet Spironolactone [Aldactone] 25 mg PO DAILY #10 tablet Diet: Regular Activity Restrictions: Activity as Tolerated Shower Restrictions: No (fall precaution) Instruction Topics: ED Ascites, Paracentesis, Hyponatremia Dc, Hypokalemia Dc, Diet High Potassium Dc Health Concerns: liver failure with ascites, hyponatremia, hypokalemia Plan of Treatment: advise you followup your petroleum production engineer in very closely for your liver failure with ascites. advise you keep regular diet, advise you followup your PCP in next week Sunday (12/29/2019) or Sunday(12/30/2019) to have BMP test and monitor. you are prescribed Spironolactone and potassium for your significant hypokalemia. advise you followup your PCP in next week Sunday (12/29/2019) or Sunday(12/30/2019) to have BMP test and monitor. Care Goals: stabilization and improvement of your medical conditions Assessment: discussed with you the care plan, you understood and agreed. Additional Instructions or Follow Up instructions: you may followup your PCP in next week Sunday (12/29/2019) or Sunday(12/30/2019) to have BMP test and monitor, followup your petroleum production engineer in as out-pt closely. Should your symptoms return or worsen, you may present ER or call 911 for help. No Smoking: If you smoke, Please STOP! Call for help. Follow-up with: lAma Gomes PA [Primary Care Provider] -
[2019-12-26 15:43] VITALS: BP 136/87
--- NOTE | 2019-12-26 15:48 | DISCHARGE SUMMARY ---
Discharge Summary Admit Date: 12/24/19 Discharge Date: 12/26/19 Discharging Provider: Leonard Honeycutt Primary Care Provider: Bijal Denise Condition at Discharge: Poor Discharge Disposition: 01 Home, Self Care Discharge Facility Name: home - DIAGNOSES Admission Diagnoses: (1) Anemia (2) Hypokalemia (3) Hyponatremia (4) Liver failure (5) Ascites (6) Cirrhosis Discharge Diagnoses with Status of Each Condition: (1) iron deficiency Anemia stable/improved. HGB is 8.4. pt denies GI bleed. pt was found to have iron deficiency anemia. pt is prescribed iron pill (2) Hypokalemia resolved. pt is prescribed spironolactone and potassium. advise pt followup his PCP on next Sunday or Sunday to test with BMP, closely monitor (3) Hyponatremia improved. pt has no fatigue or weakness, and strongly request to be d/c to home. pt is going to fish. advise pt continue regular diet, reduce to drink free water. advise pt followup his PCP on next Sunday or Sunday to test with BMP, closely monitor (4)hypochloremia improved. advise pt followup his PCP on next Sunday or Sunday to test with BMP, closely monitor (5) Liver failure chronic, followup his secondary set up man (6) Ascites chronic/stable. pt denies shortness of breath. pt had paracentesis done on 12/24/2019. followup his secondary set up man (7) Cirrhosis chronic (8) pancytopenia chronic - HPI History of Present Illness: refer from Dr. Han's HPI on 12/24/2019 Patient is a 59-year-old male with history of hepatitis C, cirrhosis and associated ascites who presented to the ED at the request of his outpatient physicians. He went to the [facility] clinic for a paracentesis today. About 8 to 9 L of fluid was extracted. He also had lab work done. He was subsequently called and asked to come to the emergency room because his potassium on the routine labs done was found to be 1.8, sodium 120 and hemoglobin 7.2. The patient does not have any GI bleed. As a result of the above he is being admitted for further treatment. At bedside he denies chest pain. He has some dyspnea but explains that it is because of his significant abdominal distention pushing up into his thoracic cavity. He denies fever, chills, nausea or vomiting. He has 2+ lower extremity pitting edema. His abdomen is somewhat protuberant despite the 8 L of fluid extracted. He explains that he was at his baseline and functioning very well. He was planning to go for a fishing trip tomorrow before he was called to come to the hospital. The rest of his history is unremarkable. - HOSPITAL COURSE Hospital Course: Patient is admitted for anemia, hyponatremia, hypokalemia, and liver failure. pt denies GI bleeding. pt was given one unit of blood. pt was found to have iron deficiency anemia. after pt has fluid restriction, diuretics, Electrolytes replacement, Patient's potassium is normal, sodium increases, and HGB became stable. pt is prescribed potassium and spironolactone, resume regular diet, followup PCP continue monitor closely on next Sunday or Sunday. pt is stable, no weakness, eat 100% his meal, will go to fish. Pt strongly request to be d/c to home today otherwise he will sign AMA. advise pt followup his secondary set up man in closely as well. The detail hospital course is as the below. (1) iron deficiency Anemia stable/improved. HGB is 8.4. pt denies GI bleed. pt was found to have iron deficiency anemia. pt is prescribed iron pill. called pt for his delayed iron pill prescribe. 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 (2) Hypokalemia resolved. pt is prescribed spironolactone and potassium. advise pt followup his PCP on next Sunday or Sunday to test with BMP, closely monitor (3) Hyponatremia improved. pt has no fatigue or weakness, and strongly request to be d/c to home. pt is going to fish. advise pt continue regular diet, reduce to drink free water. advise pt followup his PCP on next Sunday or Sunday to test with BMP, closely monitor (4)hypochloremia improved. advise pt followup his PCP on next Sunday or Sunday to test with BMP, closely monitor (5) Liver failure chronic, followup his secondary set up man (6) Ascites chronic/stable. pt denies shortness of breath. pt had paracentesis done on 12/24/2019. followup his secondary set up man (7) Cirrhosis chronic (8) pancytopenia chronic - ALLERGIES Allergies/Adverse Reactions: Allergies Allergy/AdvReac Type Severity Reaction Status Date / Time No Known Drug Allergies Allergy Verified 12/24/19 17:13 - MEDICATIONS Home Medications: Ambulatory Orders Medication Instructions Recorded Confirmed Ferrous Sulfate 325 mg PO DAILY #10 tablet 12/26/19 Potassium Chloride 20 meq PO DAILY #10 packet 12/26/19 Spironolactone [Aldactone] 25 mg PO DAILY #10 tablet 12/26/19 - PHYSICAL EXAM AT DISCHARGE General Appearance: positive: No acute distress, Alert. negative: Lethargic Eyes Bilateral: positive: Normal inspection, PERRL, No lid inflammation ENT: positive: ENT inspection nml, Pharynx nml, No signs of dehydration. negative: Purulent nasal drainage Neck: positive: Nml inspection, Thyroid nml, No JVD, Trachea midline. negative: Thyromegaly, Stiff neck, Tracheal deviation Respiratory: positive: Chest non-tender, No respiratory distress, Breath sounds nml. negative: Wheezes, Rales, Rhonchi Cardiovascular: positive: Regular rate & rhythm, No murmur, No gallop. negative: Irregularly irregular, Tachycardia, Bradycardia, JVD present, Systolic murmur, Diastolic murmur Peripheral Pulses: positive: 2+ Abdomen: positive: Non-tender, No organomegaly, Nml bowel sounds. negative: Tenderness, Guarding, Rebound Back: positive: Nml inspection. negative: CVA tenderness (R), CVA tenderness (L) Skin: positive: Color nml, No rash, Warm, Dry. negative: Cyanosis, Diaphoresis, Pallor Extremities: positive: Non-tender, Full ROM, Nml appearance. negative: Calf tenderness, Smita's sign/cords Neurologic/Psychiatric: positive: Oriented x3, Motor nml, Sensation nml. negative: Weakness, Sensory loss, Facial droop, Slurred/abnml speech, Depressed mood/affect - LABS Result Diagrams: 12/26/19 05:05 12/26/19 14:30 - FOLLOW UP Follow Up: advise you followup your secondary set up man in very closely for your liver failure with ascites. advise you keep regular diet, advise you followup your PCP in next week Sunday (12/29/2019) or Sunday(12/30/2019) to have BMP test and monitor. you are prescribed Spironolactone and potassium for your significant hypokalemia. advise you followup your PCP in next week Sunday (12/29/2019) or Sunday(12/30/2019) to have BMP test and monitor. you may followup your PCP in next week Sunday (12/29/2019) or Sunday(12/30/2019) to have BMP test and monitor, followup your secondary set up man in as out-pt closely. Should your symptoms return or worsen, you may present ER or call 911 for help. - TIME SPENT Time Spent in Discharge (Minutes): 30
== END 2019-12-26 16:34 | disposition home or self-care (01) | DRG 641 ==
LOC: ED 17:02 → MS2 18:31
PROVIDERS: ADMIT Nurse Practitioner Gerontology; ATTEND Nurse Practitioner Gerontology
PROC: 30243N1 Transfusion of Nonautologous Red Blood Cells into Central Vein, Percutaneous Approach (ICD-10-PCS; principal; 2019-12-24)
DX: E87.6 Hypokalemia (principal); D61.818 Other pancytopenia; E87.1 Hypo-osmolality and hyponatremia; K72.10 Chronic hepatic failure without coma; R18.8 Other ascites; D50.9 Iron deficiency anemia, unspecified; F17.200 Nicotine dependence, unspecified, uncomplicated; E87.8 Other disorders of electrolyte and fluid balance, not elsewhere classified; K70.40 Alcoholic hepatic failure without coma; B18.2 Chronic viral hepatitis C; K70.31 Alcoholic cirrhosis of liver with ascites; F10.20 Alcohol dependence, uncomplicated; Z72.0 Tobacco use; Z86.19 Personal history of other infectious and parasitic diseases; Z86.79 Personal history of other diseases of the circulatory system
CPT/HCPCS: 36415; 71045; 80048; 80053; 81003; 82105; 82140; 82272; 82570; 83540; 83690; 83735; 84100; 84133; 84466; 85025; 85610; 86850; 86900; 86901; 86920; 93005; 99284; 99285; A9270; P9016; 81001

== ENCOUNTER 2019-12-31 12:21 | Outpatient (CLI) | payer MEDICARE, MEDICAID ==
--- NOTE | 2019-12-31 13:46 | OPERATIVE REPORT ---
Operative Report - General Procedure Date: 12/31/19 Planned Procedure: Therapeutic large volume paracentesis Pre-Op Diagnosis: Cirrhosis with ascites Procedure Performed: Therapeutic large volume paracentesis Post Op Diagnosis: Cirrhosis with ascites - Procedure Note Primary Surgeon: Wendie Anesthesia Technique: Local Estimated Blood Loss (mL): 1 Findings: [place] to straw colored peritoneal fluid Complications: None apparent - Other Other Information/Narrative: After obtaining informed consent, the patient was brought to the ultrasound suite and placed in the supine position on the examination table. Verbal and written consent were obtained for the procedure. The ultrasound was used to identify a clear window of opportunity in the rightt lower quadrant for placement of a paracentesis catheter. This area was marked. Using the provided kit, the area over the brittany was prepped and draped in the standard surgical fashion. The skin was anesthetized with 8 mL of 1% lidocaine. A 2 mm tiago was created in the skin over the abdominal wall at this site. The catheter was directed into the abdominal wall while aspirating to detect entrance into the peritoneal cavity. The catheter was then advanced without the needle and the needle was completely removed. The port catheter was then hooked to vacuum bottles. Clear to straw-colored fluid was then aspirated from the peritoneal cavity. Once there was no longer free flow of fluid, the patient coughed and we were able to get slightly more change of position provided another 250 mL or so of additional fluid. The catheter was then disconnected from suction, it was removed under direct vision. The wound was cleaned once again and closed with Dermabond. A pressure dressing was applied. All sponge, needle, and instrument counts were correct at the conclusion of the case. The patient tolerated the procedure very well. He was discharged with a return appointment in 1 week.
[2019-12-31] MEDS ORDERED: SODIUM CHLORIDE FLUSH 0.9% 10 ML SYRINGE ONE (14:21)
--- NOTE | 2020-01-01 10:35 | Ultrasound Report ---
Reason: CIRRHOSIS, ASCITES Procedure Date: 12/31/2019 Accession Number: [id number] / [id number] Procedure: US - Abdominal Paracentesis CPT Code: Final Report FULL RESULT: EXAM: ULTRASOUND GUIDANCE FOR PROCEDURE EXAM DATE: 12/31/2019 02:31 PM. CLINICAL HISTORY: Cirrhosis, ascites. COMPARISON: ABDOMINAL PARACENTESIS 12/24/2019 12:09 PM. TECHNIQUE: Real-time and static images were obtained. FINDINGS: Ultrasound guidance was provided to on-site practitioner, who performed the procedure. IMPRESSION: Ultrasound guidance for paracentesis procedure. RADIA
== END 2019-12-31 12:22 | disposition home or self-care (01) ==
LOC: DI 12:21
PROVIDERS: ATTEND Physician Assistant Medical
DX: K70.31 Alcoholic cirrhosis of liver with ascites (principal)
CPT/HCPCS: 49083

== ENCOUNTER 2020-01-07 12:18 | Outpatient (CLI) | payer MEDICARE, MEDICAID ==
--- NOTE | 2020-01-08 14:22 | Ultrasound Report ---
Reason: CIRRHOSIS, ASCITES Procedure Date: 01/07/2020 Accession Number: [id number] / [id number] Procedure: US - Abdominal Paracentesis CPT Code: Final Report FULL RESULT: EXAM: ABDOMEN ULTRASOUND LIMITED EXAM DATE: 01/07/2020 12:00 PM. CLINICAL HISTORY: CIRRHOSIS, ASCITES. COMPARISON: ABDOMINAL PARACENTESIS 12/31/2019 12:33 PM ABDOMEN/PELVIS W/ 04/25/2019 7:21 AM. TECHNIQUE: Real-time four-quadrant abdominal scanning was performed with static images obtained. FINDINGS: Large amount of ascites in right and left lower quadrants. Moderate to large volume of ascites in the right upper quadrant. Moderate left upper quadrant ascites. Cirrhotic liver morphology with nodular contour. Dedicated liver imaging was not performed. [employer] notes Dr. Pressley performed paracentesis following present exam, removing 12.1 L of fluid. Please see separate report by Dr. Pressley. IMPRESSION: 1. Large volume of ascites. RADIA
== END 2020-01-07 12:19 | disposition home or self-care (01) ==
LOC: DI 12:18
PROVIDERS: ATTEND Physician Assistant Medical
DX: K70.31 Alcoholic cirrhosis of liver with ascites (principal)
CPT/HCPCS: 49083

== ENCOUNTER 2020-01-14 08:00 | Outpatient (CLI) | payer MEDICARE, MEDICAID ==
[2020-01-14 15:14] LABS: BASOPHILS % (AUTO) 0.7 %; EOSINOPHILS # (AUTO) 0.1 10^3/uL (0.0-0.7); EOSINOPHILS % (AUTO) 2.2 %; HGB - HEMOGLOBIN 9.8 g/dL (14.0-18.0); LYMPHOCYTES # (AUTO) 0.4 10^3/uL (1.5-3.5); LYMPHOCYTES % (AUTO) 10.1 %; MEAN CORPUSCULAR HEMOGLOBIN 27.3 pg (27.0-31.0); MEAN CORPUSCULAR HGB CONC 35.1 g/dL (32.0-36.0); MEAN CORPUSCULAR VOLUME 77.7 fL (80.0-94.0); MEAN PLATELET VOLUME 10.7 fL (7.4-11.4); MONOCYTES # (AUTO) 0.6 10^3/uL (0.0-1.0); MONOCYTES % (AUTO) 15.8 %; NEUTROPHILS # (AUTO) 2.9 10^3/uL (1.5-6.6); PLT - PLATELET COUNT 83 10^3/uL (130-450); RED BLOOD COUNT 3.59 10^6/uL (4.70-6.10); RED CELL DISTRIBUTION WIDTH 21.3 % (12.0-15.0); WHITE BLOOD COUNT 4.1 x10^3/uL (4.8-10.8)
[2020-01-14 15:21] LABS: INR 1.8 (0.8-1.2); PT - PROTHROMBIN TIME 19.7 secs (9.9-12.6)
[2020-01-14 15:34] LABS: ALBUMIN 2.9 g/dL (3.2-5.5); BILIRUBIN,DIRECT 1.3 mg/dL (0.1-0.5); BILIRUBIN,TOTAL 3.2 mg/dL (0.2-1.0); CALCIUM 8.1 mg/dL (8.5-10.3); CREATININE 1.4 mg/dL (0.6-1.2); TOTAL PROTEIN 6.4 g/dL (6.7-8.2)
[2020-01-14 15:52] LABS: PLATELET ESTIMATE, MANUAL DECREASED (<130,000) (NORMAL); PLATELET MORPHOLOGY NORMAL APPEARANCE (NORMAL)
== END 2020-01-14 23:59 | disposition home or self-care (01) ==
LOC: LAB.R 08:00
PROVIDERS: ATTEND Nurse Practitioner
DX: K70.31 Alcoholic cirrhosis of liver with ascites (principal)
CPT/HCPCS: 80048; 80076; 85025; 85610

== ENCOUNTER 2020-01-14 08:45 | Outpatient (CLI) | payer MEDICARE, MEDICAID | END 2020-01-14 08:46 | disposition home or self-care (01) | LOC: DI 08:45 | PROVIDERS: ATTEND Nurse Practitioner | DX: K70.31 Alcoholic cirrhosis of liver with ascites (principal); I11.9 Hypertensive heart disease without heart failure | CPT/HCPCS: 80048; 80076; 85025; 85610; 93306 ==

== ENCOUNTER 2020-01-14 12:14 | Outpatient (CLI) | payer MEDICARE, MEDICAID ==
--- NOTE | 2020-01-15 08:49 | OPERATIVE REPORT ---
Operative Report - General Procedure Date: 01/14/20 Planned Procedure: Large volume paracentesis Pre-Op Diagnosis: Cirrhosis with ascites Procedure Performed: Large volume paracentesis Post Op Diagnosis: Cirrhosis with ascites - Procedure Note Primary Surgeon: Wendie Anesthesia Technique: Local Estimated Blood Loss (mL): 1 Indications: Symptomatic ascites Findings: Straw colored peritoneal fluid - clear Complications: None apparent - Other Other Information/Narrative: After obtaining informed consent, the patient was brought to the ultrasound suite and placed in the supine position on the examination table. Verbal and written consent were obtained for the procedure. The ultrasound was used to identify a clear window of opportunity in the left lower quadrant for placement of a paracentesis catheter. This area was marked. Using the provided kit, the area over the brittany was prepped and draped in the standard surgical fashion. The skin was anesthetized with 8 mL of 1% lidocaine. A 2 mm tiago was created in the skin over the abdominal wall at this site. The catheter was directed into the abdominal wall while aspirating to detect entrance into the peritoneal cavity. The catheter was then advanced without the needle and the needle was completely removed. The port catheter was then hooked to vacuum bottles. Clear to straw- colored fluid was then aspirated from the peritoneal cavity. Once there was no longer free flow of fluid, the catheter was then disconnected from suction, it was removed under direct vision. The wound was cleaned once again and closed with Dermabond. A pressure dressing was applied. All sponge, needle, and instrument counts were correct at the conclusion of the case. The patient tolerated the procedure very well. He was discharged with a return appointment in 1 week.
--- NOTE | 2020-01-16 09:33 | Ultrasound Report ---
Reason: CIRRHOSIS, ASCITES Procedure Date: 01/14/2020 Accession Number: [id number] / [id number] Procedure: US - Abdominal Paracentesis CPT Code: Final Report FULL RESULT: EXAM: ABDOMEN ULTRASOUND LIMITED EXAM DATE: 01/14/2020 02:35 PM. CLINICAL HISTORY: CIRRHOSIS, ASCITES. COMPARISON: ABDOMINAL PARACENTESIS 01/07/2020 12:00 PM. TECHNIQUE: Real-time scanning was performed with static images obtained. FINDINGS: Ultrasound guidance was performed prior to paracentesis procedure. Moderate to large volume of simple ascites present in all 4 quadrants with the deepest pocket measuring up to approximately 13 cm. [employer] notes 12.0 L was removed from the right lower quadrant by paracentesis procedure performed by Dr. Pressley. IMPRESSION: Moderate to large volume of simple ascites. 12.0 L of fluid removed and subsequent paracentesis. RADIA
== END 2020-01-14 12:15 | disposition home or self-care (01) ==
LOC: DI 12:14
PROVIDERS: ATTEND Physician Assistant Medical
DX: K70.31 Alcoholic cirrhosis of liver with ascites (principal)
CPT/HCPCS: 49083

== ENCOUNTER 2020-01-14 16:52 | Emergency (ER) | payer MEDICARE, MEDICAID ==
[2020-01-14 17:11] VITALS: BP 125/65
--- NOTE | 2020-01-14 17:27 | ED Physician Documentation ---
History of Present Illness - Stated complaint Stated Complaint: CRAMPING - Chief complaint Chief Complaint: General - History obtained from History obtained from: Patient (59-year-old gentleman presents from the [facility] clinic where he had outpatient labs done today showing a sodium of 119 and a chloride of 80. Note made that these are actually fairly close to his baseline labs. He has cirrhosis. He knows he supposed to be on a low-sodium and fluid restricted diet but is noncompliant with that. Other than some mild muscle cramping he has no specific complaints.) PD PAST MEDICAL HISTORY - Past Medical History Cardiovascular: Hypertension, High cholesterol Respiratory: None Endocrine/Autoimmune: None GI: None, Esophageal varices, Hepatitis, Other : None HEENT: None Psych: None Musculoskeletal: None Derm: None - Past Surgical History Past Surgical History: Yes General: EGD, Other Ortho: Carpal Tunnel surgery, Other - Present Medications Home Medications: Ambulatory Orders Medication Instructions Recorded Confirmed Ferrous Sulfate 325 mg PO DAILY #10 tablet 12/26/19 Potassium Chloride 20 meq PO DAILY #10 packet 12/26/19 Spironolactone [Aldactone] 25 mg PO DAILY #10 tablet 12/26/19 - Allergies Allergies/Adverse Reactions: Allergies Allergy/AdvReac Type Severity Reaction Status Date / Time No Known Drug Allergies Allergy Verified 12/24/19 17:13 - Social History Does the pt smoke?: Yes Smoking Status: Current every day smoker Does the pt drink ETOH?: Yes Does the pt have substance abuse?: No - Immunizations Immunizations are current?: No - POLST Patient has POLST: No POLST Status: Full Code PD ED PE NORMAL - Vitals Vital signs reviewed: Yes - General General: Alert and oriented X 3, No acute distress - HEENT HEENT: PERRL, EOMI - Extremities Extremities: No edema - Neuro Neuro: Alert and oriented X 3, Normal speech - Psych Psych: Normal mood, Normal affect Results - Vitals Vitals: Vital Signs - 24 hr 01/14/20 01/14/20 17:00 17:03 Temperature 36.8 C Heart Rate 99 90 Respiratory 16 16 Rate Blood Pressure 129/69 125/65 O2 Saturation 100 100 Oxygen O2 Source Room air PD MEDICAL DECISION MAKING - ED course ED course: 59-year-old gentleman with cirrhosis presents without acute complaints. His labs were reviewed and going back in time they are actually fairly close to his baseline. I counseled him on the appropriate use of a low sodium fluid restricted diet. Departure - Departure Disposition: 01 Home, Self Care Clinical Impression: Hyponatremia Cirrhosis Qualifiers: Hepatic cirrhosis type: other cirrhosis Qualified Code(s): K74.69 - Other cirrhosis of liver Condition: Good Record reviewed to determine appropriate education?: Yes Instructions: Cirrhosis Liver Dc, Fluids Limiting Dc Comments: As discussed, your labs are actually fairly close to where they usually are. You need to have a fluid restricted low-sodium diet. You should not drink more than 1 L of water per day. You should eat more than 2 g of sodium per day. Fol low-up with your primary care physician, return for new or worsening symptoms. Continue current medications. Discharge Date/Time: 01/14/20 17:33
== END 2020-01-14 17:33 | disposition home or self-care (01) ==
LOC: ED 16:52
DX: E87.1 Hypo-osmolality and hyponatremia (principal); K74.69 Other cirrhosis of liver; I10 Essential (primary) hypertension; F17.200 Nicotine dependence, unspecified, uncomplicated; Z91.11 Patient's noncompliance with dietary regimen
CPT/HCPCS: 49083; 80048; 80076; 85025; 85610; 93306; 99281

== ENCOUNTER 2020-01-21 12:17 | Outpatient (CLI) | payer MEDICARE, MEDICAID ==
[2020-01-21] MEDS: BUFFERED LIDOCAINE 10 ML SYRINGE IU ONE (15:10)
--- NOTE | 2020-01-21 16:04 | Ultrasound Report ---
Reason: CIRRHOSIS, ASCITES Procedure Date: 01/21/2020 Accession Number: [id number] / [id number] Procedure: US - Abdominal Paracentesis CPT Code: Final Report FULL RESULT: PROCEDURE: Abdominal Paracentesis INDICATIONS: CIRRHOSIS, ASCITES TECHNIQUE: The indications, alternatives, benefits, risks, and complications of the procedure were explained to the patient. Written informed consent was obtained and placed in the chart. The abdomen and pelvis were examined sonographically, and an appropriate site was chosen for paracentesis. The skin was prepared and draped in the usual sterile fashion, and 1% lidocaine was infiltrated from the skin down through the peritoneal surface. A 19-gauge catheter-covered needle was then introduced into the peritoneal space, the catheter was advanced and the needle was withdrawn, and thereafter peritoneal fluid was withdrawn. The catheter was then removed and a dressing was applied. The fluid was discarded if the clinician did not order diagnostic testing of the fluid. COMPARISON: 01/14/2020 FINDINGS: Access site: Right lower quadrant Needle: One-Step centesis catheter with introducer needle. Fluid volume and description: Clear, perla peritoneal fluid. Approximately 11 liters removed. Fluid sent for diagnostic testing: None Medications: 1% lidocaine for local anaesthesia. Complications: None. IMPRESSION: Successful ultrasound-guided paracentesis. Reviewed by: Bradford Gordon MD on 01/21/2020 4:03 PM PDT Approved by: Bradford Gordon MD on 01/21/2020 4:03 PM PDT Station ID: [id number]
== END 2020-01-21 12:18 | disposition home or self-care (01) ==
LOC: DI 12:17
PROVIDERS: ATTEND Physician Assistant Medical
DX: K70.31 Alcoholic cirrhosis of liver with ascites (principal)
CPT/HCPCS: 49083

== ENCOUNTER 2020-01-28 12:21 | Outpatient (CLI) | payer MEDICARE, MEDICAID ==
--- NOTE | 2020-01-28 14:45 | Ultrasound Report ---
Reason: ASCITES Procedure Date: 01/28/2020 Accession Number: [id number] / [id number] Procedure: US - Abdominal Paracentesis CPT Code: Final Report FULL RESULT: PROCEDURE: Abdominal Paracentesis INDICATIONS: ASCITES TECHNIQUE: The indications, alternatives, benefits, risks, and complications of the procedure were explained to the patient. Written informed consent was obtained and placed in the chart. The abdomen and pelvis were examined sonographically, and an appropriate site was chosen for paracentesis. The skin was prepared and draped in the usual sterile fashion, and 1% lidocaine was infiltrated from the skin down through the peritoneal surface. A 19-gauge catheter-covered needle was then introduced into the peritoneal space, the catheter was advanced and the needle was withdrawn, and thereafter peritoneal fluid was withdrawn. The catheter was then removed and a dressing was applied. The fluid was discarded if the clinician did not order diagnostic testing of the fluid. COMPARISON: 01/21/2020 FINDINGS: Access site: Right lower quadrant Needle: 8 [place] paracentesis catheter with introducer needle. Fluid volume and description: 13.0 L of serous ascites Fluid sent for diagnostic testing: Not requested Medications: 1% lidocaine for local anaesthesia. Complications: None. IMPRESSION: Successful ultrasound-guided paracentesis. Reviewed by: Devin Bell MD on 01/28/2020 2:44 PM PDT Approved by: Devin Bell MD on 01/28/2020 2:44 PM PDT Station ID: [id number]
== END 2020-01-28 12:22 | disposition home or self-care (01) ==
LOC: DI 12:21
PROVIDERS: ATTEND Physician Assistant Medical
DX: K70.31 Alcoholic cirrhosis of liver with ascites (principal)
CPT/HCPCS: 49083

== ENCOUNTER 2020-01-28 13:51 | Outpatient (CLI) | payer MEDICARE, MEDICAID ==
[2020-01-28 15:14] LABS: BASOPHILS % (AUTO) 0.4 %; EOSINOPHILS % (AUTO) 0.9 %; HGB - HEMOGLOBIN 9.2 g/dL (14.0-18.0); LYMPHOCYTES # (AUTO) 0.5 10^3/uL (1.5-3.5); LYMPHOCYTES % (AUTO) 10.2 %; MEAN CORPUSCULAR HGB CONC 33.5 g/dL (32.0-36.0); MEAN CORPUSCULAR VOLUME 80.6 fL (80.0-94.0); MEAN PLATELET VOLUME 10.6 fL (7.4-11.4); MONOCYTES # (AUTO) 0.7 10^3/uL (0.0-1.0); MONOCYTES % (AUTO) 15.8 %; NEUTROPHILS # (AUTO) 3.4 10^3/uL (1.5-6.6); NEUTROPHILS % (AUTO) 72.5 %; PLT - PLATELET COUNT 81 10^3/uL (130-450); RED BLOOD COUNT 3.41 10^6/uL (4.70-6.10); RED CELL DISTRIBUTION WIDTH 23.9 % (12.0-15.0); WHITE BLOOD COUNT 4.7 x10^3/uL (4.8-10.8)
[2020-01-28 15:17] LABS: INR 2.1 (0.8-1.2); PT - PROTHROMBIN TIME 22.6 secs (9.9-12.6)
[2020-01-28 15:33] LABS: ALBUMIN 2.6 g/dL (3.2-5.5); BILIRUBIN,DIRECT 1.3 mg/dL (0.1-0.5); BILIRUBIN,TOTAL 2.5 mg/dL (0.2-1.0); CALCIUM 7.6 mg/dL (8.5-10.3); CREATININE 1.6 mg/dL (0.6-1.2); PLATELET ESTIMATE, MANUAL DECREASED (<130,000) (NORMAL); PLATELET MORPHOLOGY NORMAL APPEARANCE (NORMAL); TOTAL PROTEIN 6.1 g/dL (6.7-8.2)
== END 2020-01-28 23:59 | disposition home or self-care (01) ==
LOC: LAB.R 13:51
PROVIDERS: ATTEND Nurse Practitioner
DX: K70.31 Alcoholic cirrhosis of liver with ascites (principal)
CPT/HCPCS: 80048; 80076; 85025; 85610

== ENCOUNTER 2020-02-04 12:14 | Outpatient (CLI) | payer MEDICARE, MEDICAID ==
--- NOTE | 2020-02-04 14:47 | Ultrasound Report ---
PROCEDURE: Abdominal Paracentesis INDICATIONS: ASCITES TECHNIQUE: The indications, alternatives, benefits, risks, and complications of the procedure were explained to the patient. Written informed consent was obtained and placed in the chart. The abdomen and pelvis were examined sonographically, and an appropriate site was chosen for paracentesis. The skin was pre pared and draped in the usual sterile fashion, and 1% lidocaine was infiltrated from the skin down th rough the peritoneal surface. A 19-gauge catheter-covered needle was then introduced into the perito south space, the catheter was advanced and the needle was withdrawn, and thereafter peritoneal fluid w as withdrawn. The catheter was then removed and a dressing was applied. The fluid was discarded if the clinician did not order diagnostic testing of the fluid. COMPARISON: None. FINDINGS: Access site: Right lower quadrant Needle: One-Step centesis catheter with introducer needle. Fluid volume and description: 14 L of serous ascites Fluid sent for diagnostic testing: Not requested Medications: 1% lidocaine for local anaesthesia. Complications: None. IMPRESSION: Successful ultrasound-guided paracentesis. Reviewed by: Devin Bell MD on 02/04/2020 2:46 PM PDT Approved by: Devin Bell MD on 02/04/2020 2:46 PM PDT Station ID: [id number]
== END 2020-02-04 12:15 | disposition home or self-care (01) ==
LOC: DI 12:14
PROVIDERS: ATTEND Physician Assistant Medical
DX: K70.31 Alcoholic cirrhosis of liver with ascites (principal)
CPT/HCPCS: 49083

== ENCOUNTER 2020-02-09 13:56 | Outpatient (CLI) | payer MEDICARE, MEDICAID ==
--- NOTE | 2020-02-09 16:53 | Ultrasound Report ---
PROCEDURE: Abdominal Paracentesis INDICATIONS: ASCITES TECHNIQUE: The indications, alternatives, benefits, risks, and complications of the procedure were explained to the patient. Written informed consent was obtained and placed in the chart. The abdomen and pelvis were examined sonographically, and an appropriate site was chosen for paracentesis. The skin was pre pared and draped in the usual sterile fashion, and 1% lidocaine was infiltrated from the skin down th rough the peritoneal surface. A 19-gauge catheter-covered needle was then introduced into the perito south space, the catheter was advanced and the needle was withdrawn, and thereafter peritoneal fluid w as withdrawn. The catheter was then removed and a dressing was applied. The fluid was discarded if the clinician did not order diagnostic testing of the fluid. COMPARISON: Paracentesis excess FINDINGS: Access site: Right lower quadrant Needle: One-Step centesis catheter with introducer needle. Fluid volume and description: 13.5 L clear yellow Fluid sent for diagnostic testing: No Medications: 1% lidocaine for local anaesthesia. Complications: None. IMPRESSION: Successful ultrasound-guided paracentesis. Reviewed by: Sharon Gates MD on 02/09/2020 4:52 PM PDT Approved by: Sharon Gates MD on 02/09/2020 4:52 PM PDT Station ID: [id number]
== END 2020-02-09 13:57 | disposition home or self-care (01) ==
LOC: DI 13:56
PROVIDERS: ATTEND Physician Assistant Medical
DX: K70.31 Alcoholic cirrhosis of liver with ascites (principal)
CPT/HCPCS: 49083

== ENCOUNTER 2020-02-13 10:13 | Outpatient (CLI) | payer MEDICARE, MEDICAID ==
[2020-02-13] MEDS ORDERED: BUFFERED LIDOCAINE 10 ML SYRINGE ONE (11:24)
[2020-02-13] MEDS ORDERED: BUFFERED LIDOCAINE 10 ML SYRINGE IU ONE (13:10)
--- NOTE | 2020-02-13 14:25 | Ultrasound Report ---
PROCEDURE: Abdominal Paracentesis INDICATIONS: ASCITES TECHNIQUE: The indications, alternatives, benefits, risks, and complications of the procedure were explained to the patient. Written informed consent was obtained and placed in the chart. The abdomen and pelvis were examined sonographically, and an appropriate site was chosen for paracentesis. The skin was pre pared and draped in the usual sterile fashion, and 1% lidocaine was infiltrated from the skin down th rough the peritoneal surface. A 19-gauge catheter-covered needle was then introduced into the perito south space, the catheter was advanced and the needle was withdrawn, and thereafter peritoneal fluid w as withdrawn. The catheter was then removed and a dressing was applied. The fluid was discarded if the clinician did not order diagnostic testing of the fluid. COMPARISON: None FINDINGS: Access site: Right lower quadrant Needle: One-Step centesis catheter with introducer needle. Fluid volume and description: 9.9 L clear yellow Fluid sent for diagnostic testing: No Medications: 1% lidocaine for local anaesthesia. Complications: None. IMPRESSION: Successful ultrasound-guided paracentesis. Reviewed by: Sharon Gates MD on 02/13/2020 2:24 PM PDT Approved by: Sharon Gates MD on 02/13/2020 2:24 PM PDT Station ID: [id number]
== END 2020-02-13 10:14 | disposition home or self-care (01) ==
LOC: DI 10:13
PROVIDERS: ATTEND Physician Assistant Medical
DX: K70.31 Alcoholic cirrhosis of liver with ascites (principal)
CPT/HCPCS: 49083

== ENCOUNTER 2020-02-18 09:11 | Outpatient (CLI) | payer MEDICARE, MEDICAID ==
--- NOTE | 2020-02-18 15:23 | Ultrasound Report ---
PROCEDURE: Abdominal Paracentesis INDICATIONS: ASCITES TECHNIQUE: The indications, alternatives, benefits, risks, and complications of the procedure were explained to the patient. Written informed consent was obtained and placed in the chart. The abdomen and pelvis were examined sonographically, and an appropriate site was chosen for paracentesis. The skin was pre pared and draped in the usual sterile fashion, and 1% lidocaine was infiltrated from the skin down th rough the peritoneal surface. A 19-gauge catheter-covered needle was then introduced into the perito south space, the catheter was advanced and the needle was withdrawn, and thereafter peritoneal fluid w as withdrawn. The catheter was then removed and a dressing was applied. The fluid was discarded if the clinician did not order diagnostic testing of the fluid. COMPARISON: None FINDINGS: Access site: Right lower abdomen Needle: One-Step centesis catheter with introducer needle. Fluid volume and description: 9 L of blood-tinged fluid Fluid sent for diagnostic testing: Not requested Medications: 1% lidocaine for local anaesthesia. Complications: None. IMPRESSION: Successful ultrasound-guided paracentesis. No immediate complications. Reviewed by: Maricarmen Norris MD, PhD on 02/18/2020 3:22 PM PDT Approved by: Maricarmen Norris MD, PhD on 02/18/2020 3:22 PM PDT Station ID: [id number]
== END 2020-02-18 09:12 | disposition home or self-care (01) ==
LOC: DI 09:11
PROVIDERS: ATTEND Physician Assistant Medical
DX: K70.31 Alcoholic cirrhosis of liver with ascites (principal)
CPT/HCPCS: 49083

== ENCOUNTER 2020-02-25 10:18 | Outpatient (CLI) | payer MEDICARE, MEDICAID ==
--- NOTE | 2020-02-25 14:02 | Ultrasound Report ---
PROCEDURE: Abdominal Paracentesis INDICATIONS: ASCITES TECHNIQUE: The indications, alternatives, benefits, risks, and complications of the procedure were explained to the patient. Written informed consent was obtained and placed in the chart. The abdomen and pelvis were examined sonographically, and an appropriate site was chosen for paracentesis. The skin was pre pared and draped in the usual sterile fashion, and 1% lidocaine was infiltrated from the skin down th rough the peritoneal surface. A 19-gauge catheter-covered needle was then introduced into the perito south space, the catheter was advanced and the needle was withdrawn, and thereafter peritoneal fluid w as withdrawn. The catheter was then removed and a dressing was applied. The fluid was discarded if the clinician did not order diagnostic testing of the fluid. COMPARISON: Ultrasound guided paracentesis, 01/19/2020. FINDINGS: Access site: Right lower quadrant Needle: One-Step centesis catheter with introducer needle. Fluid volume and description: 12.1 cm, slightly pinkish Fluid sent for diagnostic testing: Not ordered by referring physician. Medications: 1% lidocaine for local anaesthesia. Complications: None. IMPRESSION: 1. Successful ultrasound-guided paracentesis. 12.1 liters of ascites are removed. The patient will re ceive albumin infusion after paracentesis. Reviewed by: Bry Burgess MD on 02/25/2020 2:01 PM PDT Approved by: Bry Burgess MD on 02/25/2020 2:01 PM PDT Station ID: [id number]
== END 2020-02-25 10:19 | disposition home or self-care (01) ==
LOC: DI 10:18
PROVIDERS: ATTEND Physician Assistant Medical
DX: K70.31 Alcoholic cirrhosis of liver with ascites (principal)
CPT/HCPCS: 49083

== ENCOUNTER 2020-03-01 16:14 | Emergency (ER) | payer MEDICARE, MEDICAID ==
[2020-03-01 17:02] LABS: BASOPHILS % (AUTO) 0.3 %; EOSINOPHILS % (AUTO) 0.3 %; HGB - HEMOGLOBIN 9.7 g/dL (14.0-18.0); LYMPHOCYTES # (AUTO) 0.7 10^3/uL (1.5-3.5); LYMPHOCYTES % (AUTO) 9.4 %; MEAN CORPUSCULAR HEMOGLOBIN 28.4 pg (27.0-31.0); MEAN CORPUSCULAR HGB CONC 35.1 g/dL (32.0-36.0); MEAN CORPUSCULAR VOLUME 80.7 fL (80.0-94.0); MEAN PLATELET VOLUME 11.3 fL (7.4-11.4); MONOCYTES # (AUTO) 1.1 10^3/uL (0.0-1.0); MONOCYTES % (AUTO) 14.5 %; NEUTROPHILS # (AUTO) 5.8 10^3/uL (1.5-6.6); NEUTROPHILS % (AUTO) 74.8 %; PLT - PLATELET COUNT 135 10^3/uL (130-450); RED BLOOD COUNT 3.42 10^6/uL (4.70-6.10); RED CELL DISTRIBUTION WIDTH 20.3 % (12.0-15.0); WHITE BLOOD COUNT 7.7 x10^3/uL (4.8-10.8)
[2020-03-01 17:19] LABS: ALBUMIN 3.7 g/dL (3.2-5.5); ALBUMIN/GLOBULIN RATIO 1.2 (1.0-2.2); BILIRUBIN,TOTAL 4.4 mg/dL (0.2-1.0); CREATININE 1.8 mg/dL (0.6-1.2); TOTAL PROTEIN 6.8 g/dL (6.7-8.2)
--- NOTE | 2020-03-01 17:20 | XRAY Report ---
PROCEDURE: Chest 1 View X-Ray INDICATIONS: Chest pain TECHNIQUE: One view of the chest was acquired. COMPARISON: 12/24/2019 FINDINGS: Surgical changes and devices: Right chest wall Port-A-Cath tip is in lower SVC. Lungs and pleura: No pleural effusions or pneumothorax. Lungs are clear. Mediastinum: Mediastinal contours appear normal. Heart size is normal. Bones and chest wall: No suspicious bony lesions. Overlying soft tissues appear unremarkable. IMPRESSION: No acute cardiopulmonary pathology. Reviewed by: Osvaldo Chavis MD on 03/01/2020 5:18 PM PDT Approved by: Osvaldo Chavis MD on 03/01/2020 5:18 PM PDT Station ID: [id number]
[2020-03-01] MEDS ORDERED: SODIUM CHLORIDE 0.9% 1,000 ML IV STA ×2 (17:21→17:37)
[2020-03-01 17:23] LABS: PLATELET ESTIMATE, MANUAL NORMAL (130-450,000) (NORMAL); PLATELET MORPHOLOGY NORMAL APPEARANCE (NORMAL)
[2020-03-01] MEDS ORDERED: PANTOPRAZOLE 40 MG VIAL IVP STA (17:32)
[2020-03-01] MEDS ORDERED: cefTRIAXone 1 GM VIAL IVP STA (17:32)
[2020-03-01 17:47] LABS: INR 1.9 (0.8-1.2); PT - PROTHROMBIN TIME 20.7 secs (9.9-12.6)
[2020-03-01 17:55] LABS: PARTIAL THROMBOPLASTIN TIME 37.5 secs (24.9-33.3)
[2020-03-01] MEDS ORDERED: TRANEXAMIC ACID 1,000 MG in SODIUM CHLORIDE 0.9% 100ML 100 ML IV STA (18:08)
--- NOTE | 2020-03-01 18:08 | ED Physician Documentation ---
PD HPI GI BLEED - Stated complaint Stated Complaint: RECTAL BLEEDING - Chief complaint Chief Complaint: Abd Pain - History obtained from History obtained from: Patient - History of Present Illness Timing - onset: How many days ago (2-3) Timing - duration: Days Timing - details: Gradual onset Pain level max: 0 Pain level now: 0 Associated symptoms: Maroon stool, Black/tarry stool Contributing factors: Other (Cirrhosis with varices). No: Sick contact, Bad food, Travel, Recent antibiotics, Alcohol use, Aspirin use, NSAID use, Stress, Anticoagulated, Diabetes Improved by: Other (Nothing) Worsened by: Other (Nothing) Similar symptoms before: Has not had sx before Recently seen: Not recently seen - Additional information Additional information: 59-year-old male with a history of cirrhosis and esophageal varices presents the emergency department with Dark/maroon stools for the past several days. Nothing makes it better or worse. He sees GI at [facility] in [place]. Review of Systems Ten Systems: 10 systems reviewed and negative Constitutional: denies: Fever, Chills Throat: denies: Sore throat Cardiac: denies: Chest pain / pressure GI: denies: Vomiting, Diarrhea Skin: denies: Rash Musculoskeletal: denies: Neck pain, Back pain Neurologic: denies: Headache PD PAST MEDICAL HISTORY - Past Medical History Past Medical History: Yes Cardiovascular: Hypertension, High cholesterol Respiratory: None Endocrine/Autoimmune: None GI: None, Esophageal varices, Hepatitis, Other : None HEENT: None Psych: None Musculoskeletal: None Derm: None - Past Surgical History Past Surgical History: Yes General: EGD, Other Ortho: Carpal Tunnel surgery, Other - Present Medications Home Medications: Ambulatory Orders Medication Instructions Recorded Confirmed Ferrous Sulfate 325 mg PO DAILY #10 tablet 12/26/19 Potassium Chloride 20 meq PO DAILY #10 packet 12/26/19 Spironolactone [Aldactone] 25 mg PO DAILY #10 tablet 12/26/19 - Allergies Allergies/Adverse Reactions: Allergies Allergy/AdvReac Type Severity Reaction Status Date / Time No Known Drug Allergies Allergy Verified 12/24/19 17:13 - Social History Does the pt smoke?: Yes Smoking Status: Current every day smoker Does the pt drink ETOH?: Yes Does the pt have substance abuse?: No - Immunizations Immunizations are current?: No - POLST Patient has POLST: No POLST Status: Full Code PD ED PE NORMAL - Vitals Vital signs reviewed: Yes - General General: Alert and oriented X 3, No acute distress, Well developed/nourished - HEENT HEENT: Moist mucous membranes - Neck Neck: Supple, no meningeal sign - Cardiac Cardiac: RRR, Strong equal pulses - Respiratory Respiratory: No respiratory distress, Clear bilaterally - Abdomen Abdomen: Soft, Non tender, Non distended - Rectal Rectal: Other (Adam blood, Mostly dried) - Derm Derm: Warm and dry, No rash - Extremities Extremities: No edema - Neuro Neuro: Alert and oriented X 3 - Psych Psych: Normal mood, Normal affect Results - Vitals Vitals: Vital Signs - 24 hr 03/01/20 03/01/20 03/01/20 16:33 17:35 18:00 Temperature 36.4 C L Heart Rate 115 H 109 H 108 H Respiratory 18 14 18 Rate Blood Pressure 113/82 H 124/93 H 136/100 H O2 Saturation 100 100 100 03/01/20 03/01/20 03/01/20 18:30 19:00 19:30 Temperature Heart Rate 106 H 97 100 Respiratory 21 14 14 Rate Blood Pressure 130/98 H 150/100 H 151/109 H O2 Saturation 100 100 100 03/01/20 03/01/20 03/01/20 19:47 20:00 20:30 Temperature Heart Rate 110 H 81 83 Respiratory 21 15 18 Rate Blood Pressure 157/109 H 150/90 H 130/100 H O2 Saturation 100 100 100 03/01/20 21:00 Temperature 36.6 C Heart Rate 97 Respiratory 23 Rate Blood Pressure 131/100 H O2 Saturation 100 Oxygen O2 Source Room air - Labs Labs: Laboratory Tests 03/01/20 03/01/20 03/01/20 16:52 16:52 16:52 WBC 7.7 RBC 3.42 L Hgb 9.7 L Hct 27.6 L MCV 80.7 MCH 28.4 MCHC 35.1 RDW 20.3 H Plt Count 135 MPV 11.3 Neut # (Auto) 5.8 Lymph # (Auto) 0.7 L [place] # (Auto) 1.1 H Eos # (Auto) 0.0 Baso # (Auto) 0.0 Absolute Nucleated RBC 0.00 Nucleated RBC % 0.0 Manual Slide Review Indicated Platelet Estimate NORMAL (130-450,000) Platelet Morphology NORMAL APPEARANCE RBC Morph Micro Appear 1+ OVALOCYTES PT INR APTT Sodium 116 L* Potassium 6.0 H* Chloride 83 L Carbon Dioxide 19 L Anion Gap 14.0 H BUN 39 H Creatinine 1.8 H Estimated GFR (MDRD) 39 L Glucose 114 H Calcium 9.0 Total Bilirubin 4.4 H AST 87 H ALT 32 Alkaline Phosphatase 113 Ammonia Troponin I High Sens 10.6 Total Protein 6.8 Albumin 3.7 Globulin 3.1 Albumin/Globulin Ratio 1.2 Lipase 106 H Blood Type Antibody Screen 03/01/20 03/01/20 03/01/20 16:52 16:52 20:21 WBC RBC Hgb Hct MCV MCH MCHC RDW Plt Count MPV Neut # (Auto) Lymph # (Auto) [place] # (Auto) Eos # (Auto) Baso # (Auto) Absolute Nucleated RBC Nucleated RBC % Manual Slide Review Platelet Estimate Platelet Morphology RBC Morph Micro Appear PT 20.7 H INR 1.9 H APTT 37.5 H Sodium Potassium Chloride Carbon Dioxide Anion Gap BUN Creatinine Estimated GFR (MDRD) Glucose Calcium Total Bilirubin AST ALT Alkaline Phosphatase Ammonia 68.6 H Troponin I High Sens Total Protein Albumin Globulin Albumin/Globulin Ratio Lipase Blood Type A POSITIVE Antibody Screen NEGATIVE PD MEDICAL DECISION MAKING - ED course Complexity details: reviewed results, re-evaluated patient, considered differential, d/w patient, d/w clinical education consultant ED course: 59-year-old male with esophageal varices and cirrhosis, Presents with a GI bleed. Melena. Given Protonix, Rocephin, tranexamic acid, vitamin K. Started on an octreotide drip after discussion with Dr. Wilcox, GI at [facility]. Recommends admission to hospitalist. Discussed the case with [address] Dr. Palmer, hospitalist who graciously accepts in transfer. COBRA forms completed. Attempted [facility] in [place] first is out is where his GI doctor is, but no beds are available. Patient is hemodynamically stable. This document was made in part using voice recognition software. While efforts are made to proofread this document, sound alike and grammatical errors may occur. Departure - Departure Disposition: 02 Transfer Acute Care Hosp Clinical Impression: Hyponatremia, Hyperkalemia GI bleed Qualifiers: GI bleed type/associated pathology: melena Qualified Code(s): K92.1 - Melena Cirrhosis Qualifiers: Hepatic cirrhosis type: unspecified hepatic cirrhosis Ascites presence: with ascites Qualified Code(s): K74.60 - Unspecified cirrhosis of liver Ascites Qualifiers: Ascites type: other type Qualified Code(s): R18.8 - Other ascites Condition: Stable Discharge Date/Time: 03/01/20 21:21
[2020-03-01] MEDS ORDERED: OCTREOTIDE 500 MCG in SODIUM CHLORIDE 0.9% 100ML 95 ML IV STA (18:56)
[2020-03-01] MEDS ORDERED: PHYTONADIONE 10 MG/ML AMP SUBQ STA (18:57)
[2020-03-01 21:02] VITALS: BP 131/100
== END 2020-03-01 21:21 | disposition short-term general hospital (02) ==
LOC: ED 16:14
DX: E87.1 Hypo-osmolality and hyponatremia (principal); E87.5 Hyperkalemia; K92.1 Melena; K74.60 Unspecified cirrhosis of liver; R18.8 Other ascites; R00.0 Tachycardia, unspecified; I10 Essential (primary) hypertension; I85.00 Esophageal varices without bleeding; K75.9 Inflammatory liver disease, unspecified; F17.200 Nicotine dependence, unspecified, uncomplicated
CPT/HCPCS: 36415; 71045; 80053; 82140; 83690; 84484; 85025; 85610; 85730; 86850; 86900; 86901; 93005; 96361; 96365; 96372; 96375; 99284; 99285; J2354

== ENCOUNTER 2020-03-01 21:22 | Outpatient (CLI) | payer MEDICARE, MEDICAID | END 2020-03-01 21:23 | disposition short-term general hospital (02) | LOC: EMS 21:22 | PROVIDERS: ATTEND Surgery | DX: K62.5 Hemorrhage of anus and rectum (principal) | CPT/HCPCS: A0425; A0426 ==

== ENCOUNTER 2020-03-24 09:16 | Outpatient (CLI) | payer MEDICARE, MEDICAID ==
--- NOTE | 2020-03-24 12:46 | Ultrasound Report ---
PROCEDURE: Abdominal Paracentesis INDICATIONS: ASCITES TECHNIQUE: The indications, alternatives, benefits, risks, and complications of the procedure were explained to the patient. Written informed consent was obtained and placed in the chart. The abdomen and pelvis were examined sonographically, and an appropriate site was chosen for paracentesis. The skin was pre pared and draped in the usual sterile fashion, and 1% lidocaine was infiltrated from the skin down th rough the peritoneal surface. A 19-gauge catheter-covered needle was then introduced into the perito south space, the catheter was advanced and the needle was withdrawn, and thereafter peritoneal fluid w as withdrawn. The catheter was then removed and a dressing was applied. The fluid was discarded if the clinician did not order diagnostic testing of the fluid. COMPARISON: None. FINDINGS: Access site: Right lower quadrant Needle: One-Step centesis catheter with introducer needle. Fluid volume and description: 11.5 L of serous ascites Fluid sent for diagnostic testing: Not requested Medications: 1% lidocaine for local anaesthesia. Complications: None. IMPRESSION: Successful ultrasound-guided paracentesis. Reviewed by: Devin Bell MD on 03/24/2020 12:44 PM PDT Approved by: Devin Bell MD on 03/24/2020 12:44 PM PDT Station ID: [id number]
== END 2020-03-24 09:17 | disposition home or self-care (01) ==
LOC: DI 09:16
PROVIDERS: ATTEND Physician Assistant Medical
DX: K70.31 Alcoholic cirrhosis of liver with ascites (principal)
CPT/HCPCS: 49083

== ENCOUNTER 2020-03-31 09:14 | Outpatient (CLI) | payer MEDICARE, MEDICAID ==
[2020-03-31 10:18] LABS: BASOPHILS % (AUTO) 0.3 %; HGB - HEMOGLOBIN 9.6 g/dL (14.0-18.0); LYMPHOCYTES # (AUTO) 0.2 10^3/uL (1.5-3.5); LYMPHOCYTES % (AUTO) 2.6 %; MEAN CORPUSCULAR HEMOGLOBIN 27.9 pg (27.0-31.0); MEAN CORPUSCULAR HGB CONC 34.4 g/dL (32.0-36.0); MEAN CORPUSCULAR VOLUME 81.1 fL (80.0-94.0); MONOCYTES # (AUTO) 0.7 10^3/uL (0.0-1.0); MONOCYTES % (AUTO) 7.1 %; NEUTROPHILS # (AUTO) 8.3 10^3/uL (1.5-6.6); NEUTROPHILS % (AUTO) 89.6 %; PLT - PLATELET COUNT 177 10^3/uL (130-450); RED BLOOD COUNT 3.44 10^6/uL (4.70-6.10); RED CELL DISTRIBUTION WIDTH 18.3 % (12.0-15.0); WHITE BLOOD COUNT 9.2 x10^3/uL (4.8-10.8)
[2020-03-31 10:23] LABS: INR 1.6 (0.8-1.2); PT - PROTHROMBIN TIME 17.4 secs (9.9-12.6)
[2020-03-31 10:30] LABS: PARTIAL THROMBOPLASTIN TIME 33.8 secs (24.9-33.3)
--- NOTE | 2020-03-31 15:06 | Ultrasound Report ---
PROCEDURE: Abdominal Paracentesis INDICATIONS: ASCITES TECHNIQUE: The indications, alternatives, benefits, risks, and complications of the procedure were explained to the patient. Written informed consent was obtained and placed in the chart. The abdomen and pelvis were examined sonographically, and an appropriate site was chosen for paracentesis. The skin was pre pared and draped in the usual sterile fashion, and 1% lidocaine was infiltrated from the skin down th rough the peritoneal surface. A 19-gauge catheter-covered needle was then introduced into the perito south space, the catheter was advanced and the needle was withdrawn, and thereafter peritoneal fluid w as withdrawn. The catheter was then removed and a dressing was applied. The fluid was discarded if the clinician did not order diagnostic testing of the fluid. COMPARISON: None FINDINGS: Access site: Right lower abdomen Needle: One-Step centesis catheter with introducer needle. Fluid volume and description: 16.2 L of clear yellow color fluid Fluid sent for diagnostic testing: Not requested Medications: 1% lidocaine for local anaesthesia. Complications: None. IMPRESSION: Successful ultrasound-guided paracentesis. No immediate complications. Reviewed by: Maricarmen Norris MD, PhD on 03/31/2020 3:05 PM PDT Approved by: Maricarmen Norris MD, PhD on 03/31/2020 3:05 PM PDT Station ID: [id number]
== END 2020-03-31 09:15 | disposition home or self-care (01) ==
LOC: DI 09:14
PROVIDERS: ATTEND Physician Assistant Medical
DX: K70.31 Alcoholic cirrhosis of liver with ascites (principal)
CPT/HCPCS: 36415; 49083; 85025; 85610; 85730

== ENCOUNTER 2020-04-07 09:12 | Outpatient (CLI) | payer MEDICARE, MEDICAID ==
[2020-04-07] MEDS ORDERED: SODIUM CHLORIDE FLUSH 0.9% 10 ML SYRINGE ONE (11:26)
--- NOTE | 2020-04-07 13:51 | Ultrasound Report ---
PROCEDURE: Abdominal Paracentesis INDICATIONS: ASCITES TECHNIQUE: The indications, alternatives, benefits, risks, and complications of the procedure were explained to the patient. Written informed consent was obtained and placed in the chart. The abdomen and pelvis were examined sonographically, and an appropriate site was chosen for paracentesis. The skin was pre pared and draped in the usual sterile fashion, and 1% lidocaine was infiltrated from the skin down th rough the peritoneal surface. A 19-gauge catheter-covered needle was then introduced into the perito south space, the catheter was advanced and the needle was withdrawn, and thereafter peritoneal fluid w as withdrawn. The catheter was then removed and a dressing was applied. The fluid was discarded if the clinician did not order diagnostic testing of the fluid. COMPARISON: FINDINGS: Access site: Right lateral pelvic body wall Needle: One-Step centesis catheter with introducer needle. Fluid volume and description: 15.5 L, clear fluid Fluid sent for diagnostic testing: Not requested Medications: 1% lidocaine for local anaesthesia. Complications: None. IMPRESSION: Successful 15.5 L paracentesis from the right lower lateral pelvic body wall. Reviewed by: Ruben Mason MD on 04/07/2020 1:50 PM PDT Approved by: Ruben Mason MD on 04/07/2020 1:50 PM PDT Station ID: [id number]
== END 2020-04-07 09:13 | disposition home or self-care (01) ==
LOC: DI 09:12
PROVIDERS: ATTEND Physician Assistant Medical
DX: K70.31 Alcoholic cirrhosis of liver with ascites (principal)
CPT/HCPCS: 49083

== ENCOUNTER 2020-04-14 09:18 | Outpatient (CLI) | payer MEDICARE, MEDICAID ==
--- NOTE | 2020-04-14 11:33 | Ultrasound Report ---
PROCEDURE: Abdominal Paracentesis INDICATIONS: ASCITES TECHNIQUE: The indications, alternatives, benefits, risks, and complications of the procedure were explained to the patient. Written informed consent was obtained and placed in the chart. The abdomen and pelvis were examined sonographically, and an appropriate site was chosen for paracentesis. The skin was pre pared and draped in the usual sterile fashion, and 1% lidocaine was infiltrated from the skin down th rough the peritoneal surface. A 19-gauge catheter-covered needle was then introduced into the perito south space, the catheter was advanced and the needle was withdrawn, and thereafter peritoneal fluid w as withdrawn. The catheter was then removed and a dressing was applied. The fluid was discarded if the clinician did not order diagnostic testing of the fluid. COMPARISON: None. FINDINGS: Access site: Right lower quadrant Needle: One-Step centesis catheter with introducer needle. Fluid volume and description: 12.6 L of serous ascites obtained. Fluid sent for diagnostic testing: Not requested Medications: 1% lidocaine for local anaesthesia. Complications: None. IMPRESSION: Technically successful ultrasound-guided paracentesis. Reviewed by: Devin Bell MD on 04/14/2020 11:31 AM PDT Approved by: Devin Bell MD on 04/14/2020 11:31 AM PDT Station ID: [id number]
== END 2020-04-14 09:19 | disposition home or self-care (01) ==
LOC: DI 09:18
PROVIDERS: ATTEND Physician Assistant Medical
DX: K70.31 Alcoholic cirrhosis of liver with ascites (principal)
CPT/HCPCS: 49083

== ENCOUNTER 2020-04-21 09:05 | Outpatient (CLI) | payer MEDICARE, MEDICAID ==
[2020-04-21] MEDS ORDERED: SODIUM CHLORIDE FLUSH 0.9% 10 ML SYRINGE ONE (11:34)
--- NOTE | 2020-04-21 12:28 | Ultrasound Report ---
PROCEDURE: Abdominal Paracentesis INDICATIONS: ASCITES TECHNIQUE: The indications, alternatives, benefits, risks, and complications of the procedure were explained to the patient. Written informed consent was obtained and placed in the chart. The abdomen and pelvis were examined sonographically, and an appropriate site was chosen for paracentesis. The skin was pre pared and draped in the usual sterile fashion, and 1% lidocaine was infiltrated from the skin down th rough the peritoneal surface. A 19-gauge catheter-covered needle was then introduced into the perito south space, the catheter was advanced and the needle was withdrawn, and thereafter peritoneal fluid w as withdrawn. The catheter was then removed and a dressing was applied. The fluid was discarded if the clinician did not order diagnostic testing of the fluid. COMPARISON: 04/14/2020 FINDINGS: Access site: Right lower quadrant Needle: One-Step centesis catheter with introducer needle. Fluid volume and description: 16 L Fluid sent for diagnostic testing: Not requested Medications: Proximal 3 cc of 1% lidocaine for local anaesthesia. Complications: None. IMPRESSION: Successful ultrasound-guided paracentesis. No immediate complications. Reviewed by: Maricarmen Norris MD, PhD on 04/21/2020 12:27 PM PDT Approved by: Maricarmen Norris MD, PhD on 04/21/2020 12:27 PM PDT Station ID: [id number]
== END 2020-04-21 09:06 | disposition home or self-care (01) ==
LOC: DI 09:05
PROVIDERS: ATTEND Physician Assistant Medical
DX: K70.31 Alcoholic cirrhosis of liver with ascites (principal)
CPT/HCPCS: 49083

== ENCOUNTER 2020-04-28 09:10 | Outpatient (CLI) | payer MEDICARE, MEDICAID ==
[2020-04-28] MEDS ORDERED: SODIUM CHLORIDE FLUSH 0.9% 10 ML SYRINGE ONE ×2 (09:42→10:13)
--- NOTE | 2020-04-28 13:58 | Ultrasound Report ---
PROCEDURE: Abdomen Limited INDICATIONS: ASCITES TECHNIQUE: Real-time focused scanning was performed of the abdomen, with image documentation. COMPARISON: Multiple prior abdominal ultrasound studies for paracentesis. FINDINGS: The current evaluation identifies sufficient ascites for paracentesis but INR value was el evated to an unsafe level for large volume paracentesis. IMPRESSION: Abnormal elevated bleeding parameters, paracentesis was not performed. Reviewed by: Ruben Mason MD on 04/28/2020 1:57 PM PDT Approved by: Ruben Mason MD on 04/28/2020 1:57 PM PDT Station ID: [id number]
== END 2020-04-28 09:11 | disposition home or self-care (01) ==
LOC: DI 09:10
PROVIDERS: ATTEND Physician Assistant Medical
DX: R79.1 Abnormal coagulation profile (principal)
CPT/HCPCS: 76705

== ENCOUNTER 2020-04-29 16:46 | Emergency (ER) | payer MEDICARE, MEDICAID ==
[2020-04-29 16:54] VITALS: BP 147/95
--- NOTE | 2020-04-29 17:02 | ED Physician Documentation ---
PD HPI ABD PAIN - Stated complaint Stated Complaint: STOMACH PX - Chief complaint Chief Complaint: Abd Pain - History obtained from History obtained from: Patient - History of Present Illness Timing - onset: How many weeks ago (has had increased abd distension to point of uncomfortable and dyspnea the past week. has chronic liver failure with ascites. Was due to get draining procedure with indwelling catheter tomorrow but was postponed, so here for paracentesis due to discomfort.), Chronic Timing - duration: Weeks Timing - details: Gradual onset, Still present Quality: Aching, Fullness/distended Location: All over / everywhere Worsened by: Eating Associated symptoms: Nausea. No: Fever, Vomiting, Diarrhea Similar symptoms before: Diagnosis (cirrhosis with ascites) Review of Systems Constitutional: denies: Fever Nose: denies: Rhinorrhea / runny nose, Congestion Throat: denies: Sore throat Respiratory: denies: Cough GI: reports: Abdominal Pain, Abdominal Swelling, Nausea. denies: Vomiting, Diarrhea Skin: denies: Rash, Lesions PD PAST MEDICAL HISTORY - Past Medical History Cardiovascular: Hypertension, High cholesterol Respiratory: None Endocrine/Autoimmune: None GI: None, Esophageal varices, Hepatitis, Cirrhosis, Other : None HEENT: None Psych: None Musculoskeletal: None Derm: None - Past Surgical History Past Surgical History: Yes General: EGD, Other Ortho: Carpal Tunnel surgery, Other - Present Medications Home Medications: Ambulatory Orders Medication Instructions Recorded Confirmed Ferrous Sulfate 325 mg PO DAILY #10 tablet 12/26/19 Potassium Chloride 20 meq PO DAILY #10 packet 12/26/19 Spironolactone [Aldactone] 25 mg PO DAILY #10 tablet 12/26/19 - Allergies Allergies/Adverse Reactions: Allergies Allergy/AdvReac Type Severity Reaction Status Date / Time No Known Drug Allergies Allergy Verified 12/24/19 17:13 - Social History Does the pt smoke?: Yes Smoking Status: Current every day smoker Does the pt drink ETOH?: Yes Does the pt have substance abuse?: No - Immunizations Immunizations are current?: No - POLST Patient has POLST: No POLST Status: Full Code PD ED PE NORMAL - Vitals Vital signs reviewed: Yes - General General: Alert and oriented X 3, No acute distress, Well developed/nourished - Cardiac Cardiac: RRR, No murmur - Respiratory Respiratory: Clear bilaterally - Abdomen Abdomen: Other (significant distension c/w ascites. Tender diffusely. ) - Derm Derm: Normal color, Warm and dry - Extremities Extremities: No tenderness to palpate, No edema, No calf tenderness / cord Results - Vitals Vitals: Vital Signs - 24 hr 04/29/20 16:50 Temperature 37 C Heart Rate 121 H Respiratory 24 Rate Blood Pressure 147/95 H O2 Saturation 98 Oxygen O2 Source Room air PD MEDICAL DECISION MAKING - ED course Complexity details: considered differential, d/w patient (I told patient, just after initially seeing him, that the Clinic just then called and directed us not to do a paracentesis. He is happy the procedure is back on the schedule for tomorrow.), d/w labor relations consultant (just after his arrival, I got call from provider at [facility], who said his procedure has been scheduled again for tomorrow, so needs to have the full abdomen for it. So, do not do paracentesis, so he can have the drain placement done. ) Departure - Departure Disposition: 01 Home, Self Care Clinical Impression: Abdominal pain Qualifiers: Abdominal location: generalized Qualified Code(s): R10.84 - Generalized abdominal pain Liver failure Qualifiers: Liver failure chronicity: chronic Hepatic coma status: without hepatic coma Qualified Code(s): K72.10 - Chronic hepatic failure without coma Ascites Qualifiers: Ascites type: other type Qualified Code(s): R18.8 - Other ascites Condition: Stable Record reviewed to determine appropriate education?: Yes Follow-Up: Alonso Evans MD [Primary Care Provider] - Comments: The liver clinic called just now and said that your procedure for tomorrow is back scheduled again. Return their call on your cell phone and find out the t kelly. Otherwise continue usual medications. Discharge Date/Time: 04/29/20 17:52
== END 2020-04-29 17:52 | disposition home or self-care (01) ==
LOC: ED 16:46
DX: R10.84 Generalized abdominal pain (principal); R18.8 Other ascites; K72.10 Chronic hepatic failure without coma; K74.60 Unspecified cirrhosis of liver; F17.200 Nicotine dependence, unspecified, uncomplicated
CPT/HCPCS: 99281; 99284

== ENCOUNTER 2020-05-05 08:21 | Outpatient (CLI) | payer MEDICARE, MEDICAID ==
[2020-05-05 08:43] LABS: BASOPHILS % (AUTO) 0.2 %; EOSINOPHILS % (AUTO) 0.1 %; HGB - HEMOGLOBIN 10.3 g/dL (14.0-18.0); LYMPHOCYTES # (AUTO) 0.6 10^3/uL (1.5-3.5); LYMPHOCYTES % (AUTO) 7.1 %; MEAN CORPUSCULAR HEMOGLOBIN 26.6 pg (27.0-31.0); MEAN CORPUSCULAR HGB CONC 32.8 g/dL (32.0-36.0); MEAN CORPUSCULAR VOLUME 81.1 fL (80.0-94.0); MEAN PLATELET VOLUME 10.4 fL (7.4-11.4); MONOCYTES # (AUTO) 0.9 10^3/uL (0.0-1.0); MONOCYTES % (AUTO) 10.7 %; NEUTROPHILS # (AUTO) 6.6 10^3/uL (1.5-6.6); NEUTROPHILS % (AUTO) 81.4 %; PLT - PLATELET COUNT 130 10^3/uL (130-450); RED BLOOD COUNT 3.87 10^6/uL (4.70-6.10); RED CELL DISTRIBUTION WIDTH 22.5 % (12.0-15.0); WHITE BLOOD COUNT 8.1 x10^3/uL (4.8-10.8)
[2020-05-05 08:51] LABS: INR 1.8 (0.8-1.2); PT - PROTHROMBIN TIME 19.4 secs (9.9-12.6)
[2020-05-05 08:57] LABS: ALBUMIN 3.9 g/dL (3.2-5.5); BILIRUBIN,DIRECT 1.8 mg/dL (0.1-0.5); BILIRUBIN,TOTAL 4.4 mg/dL (0.2-1.0); CALCIUM 8.8 mg/dL (8.5-10.3); CREATININE 1.1 mg/dL (0.6-1.2); TOTAL PROTEIN 7.1 g/dL (6.7-8.2)
[2020-05-05 09:27] LABS: PLATELET ESTIMATE, MANUAL NORMAL (130-450,000) (NORMAL); PLATELET MORPHOLOGY NORMAL APPEARANCE (NORMAL)
--- NOTE | 2020-05-05 17:35 | Ultrasound Report ---
PROCEDURE: Abdominal Paracentesis INDICATIONS: ASCITES TECHNIQUE: The indications, alternatives, benefits, risks, and complications of the procedure were explained to the patient. Written informed consent was obtained and placed in the chart. The abdomen and pelvis were examined sonographically, and an appropriate site was chosen for paracentesis. The skin was pre pared and draped in the usual sterile fashion, and 1% lidocaine was infiltrated from the skin down th rough the peritoneal surface. A 19-gauge catheter-covered needle was then introduced into the perito south space, the catheter was advanced and the needle was withdrawn, and thereafter peritoneal fluid w as withdrawn. The catheter was then removed and a dressing was applied. The fluid was discarded if the clinician did not order diagnostic testing of the fluid. COMPARISON: None FINDINGS: Access site: Right lower quadrant Needle: One-Step centesis catheter with introducer needle. Fluid volume and description: Yellow 17 L Fluid sent for diagnostic testing: None Medications: 1% lidocaine for local anaesthesia. Complications: None. IMPRESSION: Successful ultrasound-guided paracentesis. Reviewed by: Sharon Gates MD on 05/05/2020 5:34 PM PDT Approved by: Sharon Gates MD on 05/05/2020 5:34 PM PDT Station ID: [id number]
== END 2020-05-05 08:22 | disposition home or self-care (01) ==
LOC: LAB 08:21
PROVIDERS: ATTEND Physician Assistant Medical
DX: K70.31 Alcoholic cirrhosis of liver with ascites (principal)
CPT/HCPCS: 36415; 49083; 80048; 80076; 85025; 85610

== ENCOUNTER 2020-05-12 09:13 | Outpatient (CLI) | payer MEDICARE, MEDICAID ==
[2020-05-12 09:42] LABS: BASOPHILS % (AUTO) 0.3 %; EOSINOPHILS # (AUTO) 0.1 10^3/uL (0.0-0.7); EOSINOPHILS % (AUTO) 2.2 %; HGB - HEMOGLOBIN 10.3 g/dL (14.0-18.0); LYMPHOCYTES # (AUTO) 0.6 10^3/uL (1.5-3.5); LYMPHOCYTES % (AUTO) 9.3 %; MEAN CORPUSCULAR HEMOGLOBIN 26.4 pg (27.0-31.0); MEAN CORPUSCULAR HGB CONC 34.4 g/dL (32.0-36.0); MEAN CORPUSCULAR VOLUME 76.7 fL (80.0-94.0); MEAN PLATELET VOLUME 10.6 fL (7.4-11.4); MONOCYTES # (AUTO) 0.8 10^3/uL (0.0-1.0); MONOCYTES % (AUTO) 14.1 %; NEUTROPHILS # (AUTO) 4.4 10^3/uL (1.5-6.6); NEUTROPHILS % (AUTO) 73.8 %; PLT - PLATELET COUNT 117 10^3/uL (130-450); RED CELL DISTRIBUTION WIDTH 21.7 % (12.0-15.0); WHITE BLOOD COUNT 5.9 x10^3/uL (4.8-10.8)
[2020-05-12 09:48] LABS: PT - PROTHROMBIN TIME 21.5 secs (9.9-12.6)
[2020-05-12 10:09] LABS: ALBUMIN 4.3 g/dL (3.2-5.5); BILIRUBIN,DIRECT 2.2 mg/dL (0.1-0.5); CALCIUM 8.8 mg/dL (8.5-10.3); CREATININE 1.5 mg/dL (0.6-1.2); TOTAL PROTEIN 7.1 g/dL (6.7-8.2)
[2020-05-12 10:22] LABS: PLATELET ESTIMATE, MANUAL DECREASED (<130,000) (NORMAL); PLATELET MORPHOLOGY NORMAL APPEARANCE (NORMAL)
--- NOTE | 2020-05-12 16:19 | Ultrasound Report ---
PROCEDURE: Abdominal Paracentesis INDICATIONS: ASCITES TECHNIQUE: The indications, alternatives, benefits, risks, and complications of the procedure were explained to the patient. Written informed consent was obtained and placed in the chart. The abdomen and pelvis were examined sonographically, and an appropriate site was chosen for paracentesis. The skin was pre pared and draped in the usual sterile fashion, and 1% lidocaine was infiltrated from the skin down th rough the peritoneal surface. A 19-gauge catheter-covered needle was then introduced into the perito south space, the catheter was advanced and the needle was withdrawn, and thereafter peritoneal fluid w as withdrawn. The catheter was then removed and a dressing was applied. The fluid was discarded if the clinician did not order diagnostic testing of the fluid. COMPARISON: None FINDINGS: Access site: Right lower quadrant Needle: One-Step centesis catheter with introducer needle. Fluid volume and description: 13 L yellow Fluid sent for diagnostic testing: None Medications: 1% lidocaine for local anaesthesia. Complications: None. IMPRESSION: Successful ultrasound-guided paracentesis. Reviewed by: Sharon Gates MD on 05/12/2020 4:18 PM PDT Approved by: Sharon Gates MD on 05/12/2020 4:18 PM PDT Station ID: [id number]
== END 2020-05-12 09:14 | disposition home or self-care (01) ==
LOC: DI 09:13
PROVIDERS: ATTEND Family Medicine
DX: K70.31 Alcoholic cirrhosis of liver with ascites (principal)
CPT/HCPCS: 36415; 49083; 80048; 80076; 85025; 85610

== ENCOUNTER 2020-05-17 12:22 | Inpatient (IN) | payer MEDICARE, MEDICAID ==
[2020-05-17] MEDS ORDERED: PHYTONADIONE 10 MG/ML AMP SUBQ STA (12:45)
[2020-05-17] MEDS ORDERED: FUROSEMIDE 40 MG/4 ML VIAL IVP STA ×2 (12:45→22:38)
--- NOTE | 2020-05-17 12:46 | ED Physician Documentation ---
History of Present Illness - Stated complaint Stated Complaint: LOW SODIUM - Chief complaint Chief Complaint: General - History obtained from History obtained from: Patient - Additonal information Additional information: This is a 59-year-old gentleman with history of hepatitis C and cirrhosis with recurrent ascites. He has a paracentesis scheduled every Sunday. He presented to the lab today to have pre-paracentesis labs done and was recommended to come to the emergency department because his sodium is 112 and his INR is 1.9. He says he feels okay, some shortness of breath from the ascites pressure. Very fatigued make it hard for him to go fishing. He is currently full code but is considering hospice. It does not sound like he is a transplant candidate from his description. Review of Systems Ten Systems: 10 systems reviewed and negative Constitutional: reports: Fatigue. denies: Fever, Chills Respiratory: reports: Dyspnea GI: reports: Abdominal Pain, Abdominal Swelling. denies: Nausea, Vomiting, Diarrhea PD PAST MEDICAL HISTORY - Past Medical History Cardiovascular: Hypertension, High cholesterol Respiratory: None Endocrine/Autoimmune: None GI: None, Esophageal varices, Hepatitis, Cirrhosis, Other : None HEENT: None Psych: None Musculoskeletal: None Derm: None - Past Surgical History Past Surgical History: Yes General: EGD, Other Ortho: Carpal Tunnel surgery, Other - Present Medications Home Medications: Ambulatory Orders Medication Instructions Recorded Confirmed Ferrous Sulfate 325 mg PO DAILY #10 tablet 12/26/19 Potassium Chloride 20 meq PO DAILY #10 packet 12/26/19 Spironolactone [Aldactone] 25 mg PO DAILY #10 tablet 12/26/19 - Allergies Allergies/Adverse Reactions: Allergies Allergy/AdvReac Type Severity Reaction Status Date / Time No Known Drug Allergies Allergy Verified 05/17/20 12:39 - Social History Does the pt smoke?: Yes Smoking Status: Current every day smoker Does the pt drink ETOH?: Yes Does the pt have substance abuse?: No - Family History Family history: reports: Non contributory - Immunizations Immunizations are current?: No - POLST Patient has POLST: No POLST Status: Full Code PD ED PE NORMAL - Vitals Vital signs reviewed: Yes - General General: Alert and oriented X 3, Other (Jaundiced, no distress) - HEENT HEENT: PERRL, EOMI - Neck Neck: Supple, no meningeal sign, No bony TTP - Cardiac Cardiac: RRR, No murmur - Respiratory Respiratory: No respiratory distress, Clear bilaterally - Abdomen Abdomen: Other (Protuberant belly tense with ascites) - Back Back: No CVA TTP, No spinal TTP - Derm Derm: Normal color, Warm and dry - Extremities Extremities: No edema, No calf tenderness / cord - Neuro Neuro: Alert and oriented X 3, Normal speech Results - Vitals Vitals: Vital Signs - 24 hr 05/17/20 05/17/20 05/17/20 12:39 12:42 13:52 Temperature 36.7 C 36.6 C Heart Rate 95 96 90 Respiratory 16 16 16 Rate Blood Pressure 126/95 H 125/95 H 120/69 O2 Saturation 100 100 05/17/20 05/17/20 05/17/20 13:57 14:05 14:06 Temperature 36.7 C 36.7 C 36.7 C Heart Rate 92 93 90 Respiratory 16 16 16 Rate Blood Pressure 120/69 115/80 115/80 O2 Saturation 97 100 Oxygen O2 Source Room air - Labs Labs: Laboratory Tests 05/17/20 09:25 Blood Type A POSITIVE PD MEDICAL DECISION MAKING - ED course ED course: 59-year-old gentleman with decompensated liver failure causing hyponatremia. He is hypervolemic. Also to coagulopathic at this juncture to perform paracentesis. He is administered IV Lasix FFP and subcutaneous vitamin K. His numbers mandate admission. Notified by the lab that the microbiology lab assistant/pathologist felt that only 1 unit of tight specific FFP was appropriate in this circumstance. MELD [address] Dahlfor admission. Departure - Departure Disposition: 66 [facility] DC/Xfer Clinical Impression: Ascites due to alcoholic cirrhosis, Hyponatremia Condition: Serious Discharge Date/Time: 05/17/20 16:35
--- NOTE | 2020-05-17 18:22 | PHARMACY PROGRESS NOTE ---
- Best Possible Medication History Admit Date and Time: 05/17/20 1545 Processed by: Pharmacy Medication History completed: Yes Patient Interview: Completed Secondary Source(s): Physician records (PATIENT ABLE TO CONFIRM HOME MEDICATIONS. PATIENT DENIES TAKING PREDNISONE, HOWEVER IT IS ON THE INSURANCE ), Pharmacy records, Insurance records As the person ultimately responsible for medication therapy, providers are able to order a medication from an existing home medication list in [facility] via the "Reconcile Routine" prior to Confirmation of that medication by application support analyst. Such practice is discouraged except when the physician, in their clinical judgment, deems that a medical need exists for a medication without regard to previous use.
[2020-05-17] MEDS ORDERED: ONDANSETRON 4 MG/2 ML VIAL IVP PRN (21:36)
[2020-05-17] MEDS ORDERED: ACETAMINOPHEN 325 MG TABLET PO PRN (21:36)
--- NOTE | 2020-05-17 21:47 | HISTORY & PHYSICAL EXAMINATION ---
Chief Complaint - Chief Complaint Chief Complaint: Hyponatremia, ascites, History of Present Illness - Admitted From Admitted From:: [facility] ED - History Obtained From Records Reviewed: Yes History obtained from: Patient - History of Present Illness HPI Comment/Other: Patient is 59-year-old male with history of hepatitis C, cirrhosis and as sociated ascites, hypertension and hyperlipidemia who presented with a significantly distended abdomen. He normally gets paracentesis once a week on Wednesdays. In anticipation of the paracentesis in 2 days he was sent to have lab work done in the ED today. His results came back showing a sodium level of 112. As a result he was presented for admission. He was last admitted in December with a sodium level of 120. He has never experienced seizures as a result of low sodium levels and a potassium level of 1.8. At bedside he is resting comfortably. He denies chest pain, dyspnea, abdominal pain, nausea, vomiting, fever or chills. His abdomen is significantly distended. He also has extensive scrotal edema. He does not have any lower extremity edema. In the ED he was given Lasix 80 mg x 1 and normal saline. He was also given FFP x1 and vitamin K. History - Past Medical History Cardiovascular: reports: Hypertension, High cholesterol Respiratory: reports: None Endocrine/Autoimmune: reports: None GI: reports: None, Esophageal varices, Hepatitis, Cirrhosis, Other : reports: None HEENT: reports: None Psych: reports: None Musculoskeletal: reports: None Derm: reports: None MRSA Hx?: No - Past Surgical History General: reports: EGD, Other Ortho: reports: Carpal Tunnel surgery, Other - Family & Social History Family History: Mother: Alive and Well, Father: (Father had dementia) Social History Notes: He lives at home with his mother. He has significantly cut back on the number of cigarettes he smokes to about 1 a day. He started drinking at the age of 20. He has never been and has no children. He stopped doing recreational substances in his 20s. - POLST Patient has POLST: No POLST Status: Full Code Meds/Allgy - Home Medications Home Medications: Ambulatory Orders Medication Instructions Recorded Confirmed Cholecalciferol [Vitamin D3] 25 mcg PO DAILY 05/17/20 05/17/20 Multivit-Minerals/Folic Acid 1 tab PO DAILY 05/17/20 05/17/20 [Adult One Daily Multivit Tab] Omeprazole 20 mg PO PRN PRN 05/17/20 05/17/20 Potassium Chloride 40 meq PO DAILY 05/17/20 05/17/20 - Allergies Allergies/Adverse Reactions: Allergies Allergy/AdvReac Type Severity Reaction Status Date / Time No Known Drug Allergies Allergy Verified 05/17/20 12:39 Review of Systems - Constitutional Constitutional: denies: Fatigue, Fever, Chills, Weakness - Eyes Eyes: denies: Pain - Ears, Nose & Throat Ears, Nose & Throat: denies: Ear pain - Cardiovascular Cariovascular: denies: Irregular heart rate, Palpitations, Chest pain, Edema, Lightheadedness, Exertional dyspnea - Respiratory Respiratory: denies: Cough, Sputum production, Wheezing, SOB at rest, SOB with exertion - Gastrointestinal Gastrointestinal: reports: Abdominal pain, Abdominal distention. denies: Constipation, Diarrhea, Nausea, Vomiting, Coffee grounds emesis, Reflux/heartburn - Genitourinary Genitourinary: denies: Dysuria, Frequency, Urgency - Musculoskeletal Musculoskeletal: denies: Muscle pain, Back pain, Muscle aches - Integumentary Integumentary: denies: Rash, Pruritis, Lesions - Neurological Neurological: denies: General weakness, Focal weakness, Headache, Dizziness - Psychiatric Psychiatric: denies: Depression, Anxiety - Endocrine Endocrine: denies: Polyuria, Polydypsia - Hematologic/Lymphatic Hematologic/Lymphatic: denies: Anemia, Bruising Prior Level of Functionality: She had is independent of activities of daily living Exam - Vital Signs Vital Signs: Vital Signs x48h Temp Pulse Pulse Resp BP BP Pulse Ox 05/17/20 21:00 36.6 C 95 19 98/63 97 05/17/20 16:00 82 16 122/65 98 05/17/20 14:06 36.7 C 90 16 115/80 05/17/20 14:05 36.7 C 93 16 115/80 100 05/17/20 13:57 36.7 C 92 16 120/69 97 05/17/20 13:52 36.6 C 90 16 120/69 - Physical Exam General Appearance: positive: No acute distress, Alert Eyes Bilateral: positive: PERRL, EOMI ENT: positive: No signs of dehydration Neck: positive: No JVD, Trachea midline Respiratory: positive: Chest non-tender, No respiratory distress, Breath sounds nml. negative: Wheezes, Rales, Rhonchi Cardiovascular: positive: Regular rate & rhythm Abdomen: positive: Non-tender, Nml bowel sounds, Other (Extensive distension, ascites) Back: positive: Nml inspection Skin: positive: Color nml, No rash, Warm Extremities: positive: Non-tender, Full ROM, Nml appearance, No pedal edema (significant scrotal edema) Neurologic/Psychiatric: positive: Oriented x3, Mood/affect nml Conclusion/Plan - Problem List (1) Ascites due to alcoholic cirrhosis Conclusion/Plan: Patient was given Lasix 80 mg IV x1 in the ED after normal saline. Recheck of sodium level was 113. Lasix 40 mg IV is being repeated. Patient's INR was 1.9 today. Patient received vitamin K x1 and FFP x1. We will recheck INR in the morning. Therapeutic ultrasound-guided paracentesis ordered for tomorrow. (2) Hyponatremia Conclusion/Plan: Initial sodium level was 112. Patient was given normal saline followed by Lasix 80 mg IV x1. Repeat sodium level was 113. Will administer Lasix 40 mg IV x1. Recheck sodium with a.m. labs. (3) Hypokalemia Conclusion/Plan: Will replace and recheck. We will also check magnesium level and replace accordingly (4) Liver failure Conclusion/Plan: Secondary to alcohol abuse and hepatitis C. Patient sees a personal support worker at the [facility] by name Dr. Alvina Wright Patient's INR today was 1.9. He received vitamin K and FFP. Patient will receive a paracentesis tomorrow if INR is less than 1.5. Qualifiers: Liver failure chronicity: chronic Hepatic coma status: without hepatic coma Qualified Code(s): K72.10 - Chronic hepatic failure without coma - Lab Results Fish Bones: 05/17/20 21:56 Core Measures - Anticipated LOS I expect patient to be DC'd or transferred within 96 hours.: Yes - DVT/VTE - Prophylaxis VTE/DVT Device ordered at admit?: Yes VTE/DVT Prophylaxis med ordered at admit?: No
[2020-05-17 22:11] LABS: CALCIUM 8.4 mg/dL (8.5-10.3); CREATININE 1.3 mg/dL (0.6-1.2)
[2020-05-17] MEDS: POTASSIUM CHLOR 10 MEQ/100 ML 10 MEQ/100 ML BAG IV SCH (23:15)
[2020-05-18] MEDS: POTASSIUM CHLOR 10 MEQ/100 ML 10 MEQ/100 ML BAG IV SCH ×7 (00:17→12:51)
[2020-05-18] MEDS: SODIUM CHLORIDE FLUSH 0.9% 10 ML SYRINGE IVP SCH ×4 (01:05→23:59)
[2020-05-18] MEDS ORDERED: MAGNESIUM SULFATE 2 GRAM 2 GM/50 ML BAG IV ONE (05:38)
[2020-05-18] MEDS: PANTOPRAZOLE 40 MG VIAL IVP SCH (06:13)
[2020-05-18] MEDS: SODIUM CHLORIDE FLUSH 0.9% 10 ML SYRINGE IVP PRN ×2 (06:14→18:57)
[2020-05-18 06:32] LABS: BASOPHILS % (AUTO) 0.7 %; EOSINOPHILS % (AUTO) 0.7 %; HGB - HEMOGLOBIN 8.3 g/dL (14.0-18.0); LYMPHOCYTES # (AUTO) 0.4 10^3/uL (1.5-3.5); LYMPHOCYTES % (AUTO) 13.3 %; MEAN CORPUSCULAR HEMOGLOBIN 26.2 pg (27.0-31.0); MEAN CORPUSCULAR HGB CONC 35.8 g/dL (32.0-36.0); MEAN CORPUSCULAR VOLUME 73.2 fL (80.0-94.0); MEAN PLATELET VOLUME 10.1 fL (7.4-11.4); MONOCYTES # (AUTO) 0.6 10^3/uL (0.0-1.0); MONOCYTES % (AUTO) 19.2 %; NEUTROPHILS # (AUTO) 1.9 10^3/uL (1.5-6.6); NEUTROPHILS % (AUTO) 65.8 %; PLT - PLATELET COUNT 66 10^3/uL (130-450); RED BLOOD COUNT 3.17 10^6/uL (4.70-6.10); RED CELL DISTRIBUTION WIDTH 21.1 % (12.0-15.0); WHITE BLOOD COUNT 2.9 x10^3/uL (4.8-10.8)
[2020-05-18 06:37] LABS: INR 1.9 (0.8-1.2); PT - PROTHROMBIN TIME 20.5 secs (9.9-12.6)
[2020-05-18 06:47] LABS: ALBUMIN 3.5 g/dL (3.2-5.5); ALBUMIN/GLOBULIN RATIO 1.5 (1.0-2.2); BILIRUBIN,TOTAL 5.1 mg/dL (0.2-1.0); CALCIUM 8.4 mg/dL (8.5-10.3); CREATININE 1.1 mg/dL (0.6-1.2); TOTAL PROTEIN 5.9 g/dL (6.7-8.2)
[2020-05-18] MEDS ORDERED: PHYTONADIONE 10 MG/ML AMP PO ONE (06:53)
[2020-05-18] MEDS ORDERED: CHERRY SYRUP 10 ML UDC PO ONE (06:53)
[2020-05-18] MEDS ORDERED: POTASSIUM CHLORIDE 20 MEQ TABLET PO ONE ×2 (08:14→19:53)
[2020-05-18] MEDS: FUROSEMIDE 40 MG/4 ML VIAL IVP SCH ×2 (08:15→14:23)
--- NOTE | 2020-05-18 08:15 | PROVIDER PROGRESS NOTE ---
Subjective - Prog Note Date Prog Note Date: 05/18/20 - Subjective Subjective: He reports feeling well today. He wants the paracentesis performed as he feels his abdomen is quite distended. He is also open to the idea of hospice. He would like to be a DNR at this time. Current Medications - Current Medications Current Medications: Active Medications Acetaminophen (Tylenol) 650 mg PO Q4HR PRN PRN Reason: Pain 1 to 4 Furosemide (Lasix Inj 40 Mg Vial) 40 mg IVP BIDDIURETIC [facility] Last Admin: 05/18/20 14:23 Dose: 40 mg Documented by: Heparin Sodium (Beef Lung) () 30 - 50 unit IVP PRN PRN PRN Reason: Port Protocol (<24 hours) Magnesium Oxide (Mag Ox) 400 mg PO DAILYWM [facility] Last Admin: 05/18/20 09:55 Dose: 400 mg Documented by: Ondansetron HCl (Zofran Inj) 4 mg IVP Q6HR PRN PRN Reason: Nausea / Vomiting Pantoprazole Sodium (Protonix) 40 mg IVP QDAC [facility] Last Admin: 05/18/20 06:13 Dose: 40 mg Documented by: Potassium Chloride (K-Dur) 20 meq PO DAILYWM [facility] Sodium Chloride (Normal Saline Flush 0.9%) 10 ml IVP PRN PRN PRN Reason: NEEDED PER PROVIDER ORDERS Last Admin: 05/18/20 06:14 Dose: 10 ml Documented by: Sodium Chloride (Normal Saline Flush 0.9%) 10 ml IVP 0100,0900,1700 [facility] Last Admin: 05/18/20 09:32 Dose: 10 ml Documented by: Cholecalciferol [Vitamin D3] 25 mcg PO DAILY 05/17/20 Multivit-Minerals/Folic Acid [Adult One Daily Multivit Tab] 1 tab PO DAILY 05/17/20 Omeprazole 20 mg PO PRN PRN 05/17/20 Potassium Chloride 40 meq PO DAILY 05/17/20 Objective - Vital Signs/Intake & Output Reviewed Vital Signs: Yes Vital Signs: Vital Signs x48h Temp Pulse Resp BP Pulse Ox 05/18/20 04:08 36.3 C L 93 20 132/99 H 100 Intake & Output: Intake & Output 05/15/20 05/16/20 05/17/20 05/18/20 23:59 23:59 23:59 23:59 Intake Total 300 400 Output Total 250 1060 Balance 50 -660 - Objective General Appearance: positive: No acute distress, Alert Eyes Bilateral: positive: Normal inspection. negative: No scleral icterus ENT: positive: ENT inspection nml Neck: positive: Nml inspection Respiratory: positive: No respiratory distress. negative: Wheezes, Rales Cardiovascular: positive: Regular rate & rhythm, No murmur. negative: Tachycardia, Systolic murmur Abdomen: positive: Non-tender, Nml bowel sounds, Other. negative: No distention, Tenderness, Guarding, Rebound Skin: positive: Warm, Dry Extremities: positive: Full ROM, No pedal edema Neurologic/Psychiatric: positive: Oriented x3, Motor nml - Lab Results Fish Bones: 05/18/20 06:15 05/18/20 19:28 Other Labs: Lab Results x24hrs 05/18/20 05/18/20 05/18/20 Range/Units 06:15 06:15 06:15 WBC 2.9 L (4.8-10.8) x10^3/uL RBC 3.17 L (4.70-6.10) 10^6/uL Hgb 8.3 L (14.0-18.0) g/dL Hct 23.2 L (42.0-52.0) % MCV 73.2 L (80.0-94.0) fL MCH 26.2 L (27.0-31.0) pg MCHC 35.8 (32.0-36.0) g/dL RDW 21.1 H (12.0-15.0) % Plt Count 66 L (130-450) 10^3/uL MPV 10.1 (7.4-11.4) fL Neut # (Auto) 1.9 (1.5-6.6) 10^3/uL Lymph # (Auto) 0.4 L (1.5-3.5) 10^3/uL Meade # (Auto) 0.6 (0.0-1.0) 10^3/uL Eos # (Auto) 0.0 (0.0-0.7) 10^3/uL Baso # (Auto) 0.0 (0.0-0.1) 10^3/uL Absolute Nucleated RBC 0.00 x10^3/uL Nucleated RBC % 0.0 /100WBC PT 20.5 H (9.9-12.6) secs INR 1.9 H (0.8-1.2) Sodium 114 L* (135-145) mmol/L Potassium 3.0 L (3.5-5.0) mmol/L Chloride 71 L* (101-111) mmol/L Carbon Dioxide 30 (21-32) mmol/L Anion Gap 13.0 (6-13) BUN 20 (6-20) mg/dL Creatinine 1.1 (0.6-1.2) mg/dL Estimated GFR (MDRD) 69 L (>89) Glucose 90 (70-100) mg/dL Calcium 8.4 L (8.5-10.3) mg/dL Magnesium (1.7-2.8) mg/dL Total Bilirubin 5.1 H (0.2-1.0) mg/dL AST 72 H (10-42) IU/L ALT 28 (10-60) IU/L Alkaline Phosphatase 124 H (42-121) IU/L Total Protein 5.9 L (6.7-8.2) g/dL Albumin 3.5 (3.2-5.5) g/dL Globulin 2.4 (2.1-4.2) g/dL Albumin/Globulin Ratio 1.5 (1.0-2.2) Blood Type 05/17/20 05/17/20 05/17/20 Range/Units 21:56 21:56 09:25 WBC (4.8-10.8) x10^3/uL RBC (4.70-6.10) 10^6/uL Hgb (14.0-18.0) g/dL Hct (42.0-52.0) % MCV (80.0-94.0) fL MCH (27.0-31.0) pg MCHC (32.0-36.0) g/dL RDW (12.0-15.0) % Plt Count (130-450) 10^3/uL MPV (7.4-11.4) fL Neut # (Auto) (1.5-6.6) 10^3/uL Lymph # (Auto) (1.5-3.5) 10^3/uL Meade # (Auto) (0.0-1.0) 10^3/uL Eos # (Auto) (0.0-0.7) 10^3/uL Baso # (Auto) (0.0-0.1) 10^3/uL Absolute Nucleated RBC x10^3/uL Nucleated RBC % /100WBC PT (9.9-12.6) secs INR (0.8-1.2) Sodium 113 L* (135-145) mmol/L Potassium 3.2 L (3.5-5.0) mmol/L Chloride 70 L* (101-111) mmol/L Carbon Dioxide 30 (21-32) mmol/L Anion Gap 13.0 (6-13) BUN 20 (6-20) mg/dL Creatinine 1.3 H (0.6-1.2) mg/dL Estimated GFR (MDRD) 57 L (>89) Glucose 104 H (70-100) mg/dL Calcium 8.4 L (8.5-10.3) mg/dL Magnesium 1.4 L (1.7-2.8) mg/dL Total Bilirubin (0.2-1.0) mg/dL AST (10-42) IU/L ALT (10-60) IU/L Alkaline Phosphatase (42-121) IU/L Total Protein (6.7-8.2) g/dL Albumin (3.2-5.5) g/dL Globulin (2.1-4.2) g/dL Albumin/Globulin Ratio (1.0-2.2) Blood Type A POSITIVE ABX Reporting Has patient been on IV antibiotics over the past 48 hours?: No Assessment/Plan - Problem List (1) Hyponatremia Impression: He has chronic hyponatremia likely secondary to his advanced liver disease. His sodium was 113 on admission has improved to 117. We will continue with IV diuresis and we will start him on a free water restriction of 1500mL. We will continue to check labs every 6 hours. This unfortunately is a poor prognosis given his advanced liver disease and I discussed this with the patient today. He states the idea of hospice has been mentioned in the past and he is now open to this. He would like to be a DNR at this time and is agreeable to hospice referral being placed. (2) Ascites due to alcoholic cirrhosis Impression: He is due for paracentesis tomorrow. Radiology would like his INR around 1.5. We will administer another unit of FFP today and tomorrow morning with a repeat INR in the morning. We will plan for paracentesis tomorrow and so we will make him n.p.o. at midnight. (3) Liver failure Impression: His meld score is 21. He follows with a yarn texturing machine operator at the [facility]. He understands his prognosis is quite poor and he has been told in the past that he has 6 months to a year to live. He would like to focus on his quality of life and so we will place a hospice referral. We will continue to trend his LFTs during this hospitalization. Qualifiers: Liver failure chronicity: chronic Hepatic coma status: without hepatic coma Qualified Code(s): K72.10 - Chronic hepatic failure without coma (4) Hypokalemia Impression: This has resolved. We will continue to monitor during this hospitalization and replace as necessary given he is being diuresed. (5) Pancytopenia Impression: He has chronic leukopenia, anemia, thrombocytopenia likely due to his cirrhosis and alcoholism. Fortunately, there is no evidence of bleeding at this time. We will continue to monitor.
[2020-05-18] MEDS: MAGNESIUM OXIDE 400 MG TABLET PO SCH (09:55)
[2020-05-18 14:33] LABS: CALCIUM 8.5 mg/dL (8.5-10.3); CREATININE 1.1 mg/dL (0.6-1.2)
[2020-05-18 19:45] LABS: CALCIUM 8.6 mg/dL (8.5-10.3); CREATININE 1.2 mg/dL (0.6-1.2)
[2020-05-19] MEDS: SODIUM CHLORIDE FLUSH 0.9% 10 ML SYRINGE IVP PRN ×3 (06:08→22:43)
[2020-05-19] MEDS: PANTOPRAZOLE 40 MG VIAL IVP SCH (06:08)
[2020-05-19] MEDS: FUROSEMIDE 40 MG/4 ML VIAL IVP SCH (06:08)
[2020-05-19 06:25] LABS: INR 1.6 (0.8-1.2); PT - PROTHROMBIN TIME 17.4 secs (9.9-12.6)
[2020-05-19 06:30] LABS: BASOPHILS % (AUTO) 0.7 %; EOSINOPHILS % (AUTO) 3.6 %; LYMPHOCYTES % (AUTO) 13.5 %; MEAN CORPUSCULAR HEMOGLOBIN 26.8 pg (27.0-31.0); MEAN CORPUSCULAR HGB CONC 35.9 g/dL (32.0-36.0); MEAN CORPUSCULAR VOLUME 74.6 fL (80.0-94.0); MEAN PLATELET VOLUME 9.6 fL (7.4-11.4); MONOCYTES % (AUTO) 22.9 %; NEUTROPHILS % (AUTO) 58.9 %; PLT - PLATELET COUNT 71 10^3/uL (130-450); RED BLOOD COUNT 2.99 10^6/uL (4.70-6.10); RED CELL DISTRIBUTION WIDTH 21.6 % (12.0-15.0); WHITE BLOOD COUNT 2.8 x10^3/uL (4.8-10.8)
[2020-05-19 06:32] LABS: ABNORMAL LYMPHS % (MANUAL) 0 %; BAND NEUTROPHILS % (MANUAL) 0 %
[2020-05-19 06:33] LABS: ALBUMIN 3.7 g/dL (3.2-5.5); ALBUMIN/GLOBULIN RATIO 1.5 (1.0-2.2); BILIRUBIN,TOTAL 4.8 mg/dL (0.2-1.0); CALCIUM 8.9 mg/dL (8.5-10.3); CREATININE 1.2 mg/dL (0.6-1.2); TOTAL PROTEIN 6.1 g/dL (6.7-8.2)
[2020-05-19 07:25] LABS: DIFFERENTIAL COMMENT MANUAL DIFFERENTIAL; LYMPHOCYTES # (MANUAL) 0.2 10^3/uL (1.5-3.5); LYMPHOCYTES % (MANUAL) 8 %; MONOCYTES # (MANUAL) 0.6 10^3/uL (0.0-1.0); RBC MORPHOLOGY (MULTIPLE) 4+ ANISOCYTOSIS (NORMAL)
--- NOTE | 2020-05-19 07:47 | PROVIDER PROGRESS NOTE ---
Subjective - Prog Note Date Prog Note Date: 05/19/20 - Subjective Subjective: Reports feeling much better after having the paracentesis today. He wants to go home as soon as possible. Denies any chest pain, dyspnea, abdominal pain. Current Medications - Current Medications Current Medications: Active Medications Acetaminophen (Tylenol) 650 mg PO Q4HR PRN PRN Reason: Pain 1 to 4 Famotidine (Pepcid) 20 mg PO DAILY [facility] Furosemide (Lasix Inj 100mg Vial) 60 mg IVP BIDDIURETIC [facility] Last Admin: 05/19/20 14:37 Dose: 60 mg Documented by: Heparin Sodium (Beef Lung) () 30 - 50 unit IVP PRN PRN PRN Reason: Port Protocol (<24 hours) Last Admin: 05/19/20 06:08 Dose: 50 unit Documented by: Albumin Human (Albuminar-25) 12.5 gm in 50 mls @ 120 mls/hr IV Q30M [facility] Stop: 05/19/20 20:24 Last Admin: 05/19/20 15:40 Dose: 120 mls/hr Documented by: Magnesium Oxide (Mag Ox) 400 mg PO DAILYWM [facility] Last Admin: 05/19/20 08:59 Dose: 400 mg Documented by: Ondansetron HCl (Zofran Odt) 4 mg TL Q6HR PRN PRN Reason: Nausea / Vomiting Potassium Chloride (K-Dur) 20 meq PO DAILYWM [facility] Last Admin: 05/19/20 09:02 Dose: 20 meq Documented by: Sodium Chloride (Normal Saline Flush 0.9%) 10 ml IVP PRN PRN PRN Reason: NEEDED PER PROVIDER ORDERS Last Admin: 05/19/20 14:37 Dose: 30 ml Documented by: Sodium Chloride (Normal Saline Flush 0.9%) 10 ml IVP 0100,0900,1700 [facility] Last Admin: 05/19/20 09:02 Dose: 10 ml Documented by: Cholecalciferol [Vitamin D3] 25 mcg PO DAILY 05/17/20 Multivit-Minerals/Folic Acid [Adult One Daily Multivit Tab] 1 tab PO DAILY 05/17/20 Omeprazole 20 mg PO PRN PRN 05/17/20 Potassium Chloride 40 meq PO DAILY 05/17/20 Objective - Vital Signs/Intake & Output Reviewed Vital Signs: Yes Vital Signs: Vital Signs x48h Temp Pulse Resp BP Pulse Ox 05/19/20 06:00 36.4 C L 80 18 107/70 100 05/19/20 00:00 85 18 106/76 100 Intake & Output: Intake & Output 05/16/20 05/17/20 05/18/20 05/19/20 23:59 23:59 23:59 23:59 Intake Total 300 1813 250 Output Total 250 1160 Balance 50 653 250 - Objective General Appearance: positive: No acute distress, Alert Eyes Bilateral: positive: Normal inspection. negative: No scleral icterus ENT: positive: ENT inspection nml Neck: positive: Nml inspection Respiratory: positive: No respiratory distress. negative: Wheezes, Rales Cardiovascular: positive: Regular rate & rhythm. negative: Irregularly irregular, Tachycardia, Bradycardia, Systolic murmur Abdomen: positive: Non-tender, No distention. negative: Tenderness, Guarding, Rebound Skin: positive: Warm, Dry Extremities: positive: Full ROM, No pedal edema Neurologic/Psychiatric: positive: Oriented x3 - Lab Results Fish Bones: 05/19/20 06:05 05/19/20 14:00 Other Labs: Lab Results x24hrs 05/19/20 05/19/20 05/19/20 Range/Units 06:05 06:05 06:05 WBC 2.8 L (4.8-10.8) x10^3/uL RBC 2.99 L (4.70-6.10) 10^6/uL Hgb 8.0 L (14.0-18.0) g/dL Hct 22.3 L (42.0-52.0) % MCV 74.6 L (80.0-94.0) fL MCH 26.8 L (27.0-31.0) pg MCHC 35.9 (32.0-36.0) g/dL RDW 21.6 H (12.0-15.0) % Plt Count 71 L (130-450) 10^3/uL MPV 9.6 (7.4-11.4) fL Neut # (Auto) Not Reportable Lymph # (Auto) Not Reportable Elliott # (Auto) Not Reportable Eos # (Auto) Not Reportable Baso # (Auto) Not Reportable Absolute Nucleated RBC Not Reportable Total Counted 100 Band Neuts % (Manual) 0 (0 - 10) % Abnorm Lymph % (Manual) 0 % Nucleated RBC % Not Reportable Neutrophils # (Manual) 2.0 (1.5-6.6) 10^3/uL Lymphocytes # (Manual) 0.2 L (1.5-3.5) 10^3/uL Monocytes # (Manual) 0.6 (0.0-1.0) 10^3/uL Eosinophils # (Manual) 0.0 (0-0.7) 10^3/uL Basophils # (Manual) 0.0 (0-0.1) 10^3/uL Differential Comment MANUAL DIFFERENTIAL RBC Morph Micro Appear 4+ ANISOCYTOSIS (NORMAL) PT 17.4 H (9.9-12.6) secs INR 1.6 H (0.8-1.2) Sodium 116 L* (135-145) mmol/L Potassium 3.7 (3.5-5.0) mmol/L Chloride 75 L* (101-111) mmol/L Carbon Dioxide 29 (21-32) mmol/L Anion Gap 12.0 (6-13) BUN 20 (6-20) mg/dL Creatinine 1.2 (0.6-1.2) mg/dL Estimated GFR (MDRD) 62 L (>89) Glucose 89 (70-100) mg/dL Calcium 8.9 (8.5-10.3) mg/dL Total Bilirubin 4.8 H (0.2-1.0) mg/dL AST 65 H (10-42) IU/L ALT 28 (10-60) IU/L Alkaline Phosphatase 125 H (42-121) IU/L Total Protein 6.1 L (6.7-8.2) g/dL Albumin 3.7 (3.2-5.5) g/dL Globulin 2.4 (2.1-4.2) g/dL Albumin/Globulin Ratio 1.5 (1.0-2.2) Blood Type 05/18/20 05/18/20 05/17/20 Range/Units 19:28 14:07 09:25 WBC (4.8-10.8) x10^3/uL RBC (4.70-6.10) 10^6/uL Hgb (14.0-18.0) g/dL Hct (42.0-52.0) % MCV (80.0-94.0) fL MCH (27.0-31.0) pg MCHC (32.0-36.0) g/dL RDW (12.0-15.0) % Plt Count (130-450) 10^3/uL MPV (7.4-11.4) fL Neut # (Auto) Lymph # (Auto) Elliott # (Auto) Eos # (Auto) Baso # (Auto) Absolute Nucleated RBC Total Counted Band Neuts % (Manual) (0 - 10) % Abnorm Lymph % (Manual) % Nucleated RBC % Neutrophils # (Manual) (1.5-6.6) 10^3/uL Lymphocytes # (Manual) (1.5-3.5) 10^3/uL Monocytes # (Manual) (0.0-1.0) 10^3/uL Eosinophils # (Manual) (0-0.7) 10^3/uL Basophils # (Manual) (0-0.1) 10^3/uL Differential Comment RBC Morph Micro Appear (NORMAL) PT (9.9-12.6) secs INR (0.8-1.2) Sodium 117 L* 117 L* (135-145) mmol/L Potassium 3.2 L 3.6 (3.5-5.0) mmol/L Chloride 71 L* 74 L* (101-111) mmol/L Carbon Dioxide 29 29 (21-32) mmol/L Anion Gap 17.0 H 14.0 H (6-13) BUN 19 18 (6-20) mg/dL Creatinine 1.2 1.1 (0.6-1.2) mg/dL Estimated GFR (MDRD) 62 L 69 L (>89) Glucose 120 H 88 (70-100) mg/dL Calcium 8.6 8.5 (8.5-10.3) mg/dL Total Bilirubin (0.2-1.0) mg/dL AST (10-42) IU/L ALT (10-60) IU/L Alkaline Phosphatase (42-121) IU/L Total Protein (6.7-8.2) g/dL Albumin (3.2-5.5) g/dL Globulin (2.1-4.2) g/dL Albumin/Globulin Ratio (1.0-2.2) Blood Type A POSITIVE Assessment/Plan - Problem List (1) Hyponatremia Impression: This had been improving but slightly decreased this morning at 116. This is likely secondary to his liver cirrhosis. He did undergo a paracentesis today and receiving albumin given he had nearly 14 L removed. This in addition to diuresis should help with his hyponatremia. We will increase the Lasix to 80 mg IV twice daily. He is chronically hyponatremic with a baseline in the low to mid 120s. Patient would like to go home as soon as possible but informed him that this would not be possible to sodium this low. If his sodium is stable in the low to mid 120s then we can look to discharge him. We will repeat a sodium this evening. We will continue with the free water restriction. (2) Ascites due to alcoholic cirrhosis Impression: He underwent paracentesis today with nearly 14 L removed. Albumin has been ordered per the protocol. He will continue with outpatient weekly paracentesis. (3) Liver failure Impression: Stable. He is agreeable to hospice and referral has been placed. He will be evaluated on outpatient basis once he is discharged. He may benefit from a Pleurx catheter for his ascites to help with comfort and symptoms. He can continue outpatient follow-up with his publications inspector at the [facility]. Qualifiers: Liver failure chronicity: chronic Hepatic coma status: without hepatic coma Qualified Code(s): K72.10 - Chronic hepatic failure without coma (4) Pancytopenia Impression: Stable. This is likely secondary to his alcohol use and cirrhosis. There is fortunately no evidence of bleeding. (5) Hypokalemia Impression: This has resolved. We will continue with daily potassium supplementation.
[2020-05-19] MEDS ORDERED: POTASSIUM CHLORIDE 20 MEQ TABLET PO SCH (08:00)
[2020-05-19] MEDS: MAGNESIUM OXIDE 400 MG TABLET PO SCH (08:59)
[2020-05-19] MEDS: SODIUM CHLORIDE FLUSH 0.9% 10 ML SYRINGE IVP SCH ×2 (09:02→16:43)
[2020-05-19] MEDS ORDERED: ONDANSETRON ODT 4 MG TABLET TL PRN (11:41)
[2020-05-19 14:34] LABS: CALCIUM 8.8 mg/dL (8.5-10.3); CREATININE 1.3 mg/dL (0.6-1.2)
[2020-05-19] MEDS: FUROSEMIDE 100 MG/10 ML VIAL IVP SCH (14:37)
[2020-05-19] MEDS: ALBUMIN 25% 12.5 GM/50 ML VIAL IV SCH ×11 (15:01→22:08)
--- NOTE | 2020-05-19 16:36 | Ultrasound Report ---
PROCEDURE: Abdominal Paracentesis INDICATIONS: ascites TECHNIQUE: The indications, alternatives, benefits, risks, and complications of the procedure were explained to the patient. Written informed consent was obtained and placed in the chart. The abdomen and pelvis were examined sonographically, and an appropriate site was chosen for paracentesis. The skin was pre pared and draped in the usual sterile fashion, and 1% lidocaine was infiltrated from the skin down th rough the peritoneal surface. A 19-gauge catheter-covered needle was then introduced into the perito south space, the catheter was advanced and the needle was withdrawn, and thereafter peritoneal fluid w as withdrawn. The catheter was then removed and a dressing was applied. The fluid was discarded if the clinician did not order diagnostic testing of the fluid. COMPARISON: 05/12/2020 FINDINGS: Access site: Right lower quadrant Needle: One-Step centesis catheter with introducer needle. Fluid volume and description: 14 L of yellow-colored clear ascites Fluid sent for diagnostic testing: Not requested Medications: 1% lidocaine for local anaesthesia. Complications: None. IMPRESSION: Successful ultrasound-guided paracentesis. Reviewed by: Maricarmen Norris MD, PhD on 05/19/2020 4:35 PM PDT Approved by: Maricarmen Norris MD, PhD on 05/19/2020 4:35 PM PDT Station ID: [id number]
[2020-05-19 22:12] LABS: CALCIUM 8.6 mg/dL (8.5-10.3); CREATININE 1.1 mg/dL (0.6-1.2)
[2020-05-19] MEDS ORDERED: POTASSIUM CHLORIDE 20 MEQ TABLET PO ONE (23:46)
[2020-05-20] MEDS: SODIUM CHLORIDE FLUSH 0.9% 10 ML SYRINGE IVP SCH (00:29)
[2020-05-20] MEDS: FUROSEMIDE 100 MG/10 ML VIAL IVP SCH (05:00)
[2020-05-20 05:34] LABS: BASOPHILS % (AUTO) 0.9 %; EOSINOPHILS % (AUTO) 0.5 %; LYMPHOCYTES % (AUTO) 12.1 %; MEAN CORPUSCULAR HEMOGLOBIN 26.7 pg (27.0-31.0); MEAN CORPUSCULAR HGB CONC 35.4 g/dL (32.0-36.0); MEAN CORPUSCULAR VOLUME 75.6 fL (80.0-94.0); MEAN PLATELET VOLUME 10.5 fL (7.4-11.4); MONOCYTES % (AUTO) 17.8 %; NEUTROPHILS % (AUTO) 68.2 %; PLT - PLATELET COUNT 49 10^3/uL (130-450); RED BLOOD COUNT 2.62 10^6/uL (4.70-6.10); RED CELL DISTRIBUTION WIDTH 21.6 % (12.0-15.0); WHITE BLOOD COUNT 2.1 x10^3/uL (4.8-10.8)
[2020-05-20 05:47] LABS: INR 2.1 (0.8-1.2); PT - PROTHROMBIN TIME 22.2 secs (9.9-12.6)
[2020-05-20 05:50] LABS: ABNORMAL LYMPHS % (MANUAL) 0 %; BAND NEUTROPHILS % (MANUAL) 0 %
[2020-05-20 05:52] LABS: ALBUMIN 4.5 g/dL (3.2-5.5); ALBUMIN/GLOBULIN RATIO 2.8 (1.0-2.2); BILIRUBIN,TOTAL 3.7 mg/dL (0.2-1.0); CALCIUM 8.9 mg/dL (8.5-10.3); CREATININE 0.9 mg/dL (0.6-1.2); TOTAL PROTEIN 6.1 g/dL (6.7-8.2)
[2020-05-20 06:00] LABS: LYMPHOCYTES # (MANUAL) 0.6 10^3/uL (1.5-3.5); LYMPHOCYTES % (MANUAL) 28 %; MONOCYTES # (MANUAL) 0.1 10^3/uL (0.0-1.0)
[2020-05-20 06:01] LABS: DIFFERENTIAL COMMENT MANUAL DIFFERENTIAL; PLATELET ESTIMATE, MANUAL DECREASED (<130,000) (NORMAL)
[2020-05-20] MEDS ORDERED: POTASSIUM CHLORIDE 20 MEQ TABLET PO SCH (08:00)
[2020-05-20] MEDS: MAGNESIUM OXIDE 400 MG TABLET PO SCH (08:00)
[2020-05-20 08:57] VITALS: BP 138/98
[2020-05-20] MEDS ORDERED: FAMOTIDINE 20 MG TABLET PO SCH (09:00)
[2020-05-20 09:34] LABS: % IRON SATURATION 15 % (20-50); IRON 22 ug/dL (45-182); TOTAL IRON BINDING CAPACITY 147 ug/dL (250-450); TRANSFERRIN 105 mg/dL (180-329)
--- NOTE | 2020-05-20 11:19 | Discharge Plan ---
Discharge Plan Problem Reviewed?: Yes Disposition: Against Medical Advice Condition: Serious No Smoking: If you smoke, Please STOP! Call for help. Follow-up with: Alonso Evans MD [Primary Care Provider] -
--- NOTE | 2020-05-20 11:19 | DISCHARGE SUMMARY ---
"Discharge Summary Admit Date: 05/17/20 Discharge Date: 05/20/20 Discharging Provider: Wilner Grayson Primary Care Provider: Alonso Evans Code Status: Do Not Attempt Resuscitation Condition at Discharge: Serious Discharge Disposition: Against Medical Advice - DIAGNOSES Admission Diagnoses: Ascites due to alcoholic cirrhosis Hyponatremia Hypokalemia Liver failure Discharge Diagnoses with Status of Each Condition: Hyponatremia - ongoing. Ascites due to alcoholic cirrhosis - improved. Liver failure - stable. Pancytopenia - worse. Hypokalemia - improved. - HPI History of Present Illness: H&P per Dr. Han: Patient is 59-year-old male with history of hepatitis C, cirrhosis and associ ated ascites, hypertension and hyperlipidemia who presented with a significantly distended abdomen. He normally gets paracentesis once a week on Wednesdays. In anticipation of the paracentesis in 2 days he was sent to have lab work done in the ED today. His results came back showing a sodium level of 112. As a result he was presented for admission. He was last admitted in December with a sodium level of 120. He has never experienced seizures as a result of low sodium levels and a potassium level of 1.8. At bedside he is resting comfortably. He denies chest pain, dyspnea, abdominal pain, nausea, vomiting, fever or chills. His abdomen is significantly distended. He also has extensive scrotal edema. He does not have any lower extremity edema. In the ED he was given Lasix 80 mg x 1 and normal saline. He was also given FFP x1 and vitamin K. - CONSULTS | PROCEDURES Consultations: Radiology Procedures: He underwent paracentesis on May 19 with 13.9 L of ascitic fluid removed - HOSPITAL COURSE Hospital Course: He was admitted to the floor for hyponatremia which was felt to be hypervolemic hyponatremia secondary to his liver cirrhosis. He was placed on a free water restriction and diuresed with Lasix. He was also given vitamin K and FFP in preparation for a paracentesis. Sodium was checked every 8 hours and slowly improved on a daily basis. On the day he left AGAINST MEDICAL ADVICE, had improved to 119 although was 121 the evening prior. He did eventually undergo a paracentesis on May 19 with 13.9 L of ascitic fluid removed. He was given 11 bags of albumin after the paracentesis given the amount of fluid removed. He remained hemodynamically stable. The patient had initially requested to go home on 19 May but his sodium was still 117 and it was felt that he was not medically optimized to go home. He was agreeable to staying in the hospital. We did discuss hospice given his end-stage liver disease and he was agreeable to this and so a hospice referral was placed. He was also made a DNR during this hospitalization. On May 20, his labs revealed that his hemoglobin had decreased to 7.0 from 8.0 and his platelet count had also declined to 49 where it had been stable in the 60s to 70s previously. His sodium was also 119. Iron studies and ferritin were ordered to evaluate for his anemia. Prior to rounding on the patient in the morning, I was notified at about 9:15 AM that the patient had eloped. The AVIATION NEUROPSYCHOLOGIST notified the LODGE SALES ASSOCIATE to the patient's telemetry leads had been removed. By the time they had gone to evaluate the patient was noted that he was gone. Nurse was notified and found that the patient's gown had been taken off and was still present in his room. The patient had removed access to his own port prior to leaving the hospital. The patient was contacted by hospital administration and informed him that he had not been discharged and that we were planning on transfusing him a unit of packed red blood cell. The patient declined to return to the hospital he was also notified that his catheter had not been flushed and this could compromise its function but he stated that he will deal with it next week at his doctor's appointment. - ALLERGIES Allergies/Adverse Reactions: Allergies Allergy/AdvReac Type Severity Reaction Status Date / Time No Known Drug Allergies Allergy Verified 05/17/20 12:39 - MEDICATIONS Home Medications: Ambulatory Orders Medication Instructions Recorded Confirmed Cholecalciferol [Vitamin D3] 25 mcg PO DAILY 05/17/20 05/17/20 Multivit-Minerals/Folic Acid 1 tab PO DAILY 05/17/20 05/17/20 [Adult One Daily Multivit Tab] Omeprazole 20 mg PO PRN PRN 05/17/20 05/17/20 Potassium Chloride 40 meq PO DAILY 05/17/20 05/17/20 - PHYSICAL EXAM AT DISCHARGE Physical Exam Other/Comments: The patient was not examined the day he eloped as he had left prior to being rounded on. - LABS Result Diagrams: 05/20/20 05:27 05/20/20 05:27 - DIAGNOSTIC IMAGING Diagnostic Imaging Results: Final report reviewed"
== END 2020-05-20 09:30 | disposition left against medical advice (07) | DRG 641 ==
LOC: ED 12:22 → MS3 15:45
PROVIDERS: ADMIT Internal Medicine; ATTEND Internal Medicine
PROC: 30243K1 Transfusion of Nonautologous Frozen Plasma into Central Vein, Percutaneous Approach (ICD-10-PCS; 2020-05-18)
PROC: 0W9G3ZZ Drainage of Peritoneal Cavity, Percutaneous Approach (ICD-10-PCS; principal; 2020-05-19)
DX: E87.1 Hypo-osmolality and hyponatremia (principal); D61.818 Other pancytopenia; K70.31 Alcoholic cirrhosis of liver with ascites; F17.200 Nicotine dependence, unspecified, uncomplicated; K70.40 Alcoholic hepatic failure without coma; B19.20 Unspecified viral hepatitis C without hepatic coma; E87.6 Hypokalemia; F10.10 Alcohol abuse, uncomplicated; K21.9 Gastro-esophageal reflux disease without esophagitis; F17.210 Nicotine dependence, cigarettes, uncomplicated; E87.70 Fluid overload, unspecified; Z87.19 Personal history of other diseases of the digestive system
CPT/HCPCS: 49083; 80048; 80053; 82728; 83540; 83735; 84466; 85025; 85610; 86900; 86901; 96372; 96374; 99283; 99285; A9270; J1940; P9017; P9047; 82272; 86850; 86920

== ENCOUNTER 2020-05-26 09:53 | Outpatient (CLI) | payer MEDICAID, MEDICARE ==
[2020-05-26 11:09] LABS: BASOPHILS % (AUTO) 0.5 %; EOSINOPHILS # (AUTO) 0.1 10^3/uL (0.0-0.7); EOSINOPHILS % (AUTO) 2.2 %; HGB - HEMOGLOBIN 8.6 g/dL (14.0-18.0); LYMPHOCYTES # (AUTO) 0.4 10^3/uL (1.5-3.5); LYMPHOCYTES % (AUTO) 9.2 %; MEAN CORPUSCULAR HEMOGLOBIN 26.7 pg (27.0-31.0); MEAN CORPUSCULAR HGB CONC 35.7 g/dL (32.0-36.0); MEAN CORPUSCULAR VOLUME 74.8 fL (80.0-94.0); MEAN PLATELET VOLUME 10.3 fL (7.4-11.4); MONOCYTES # (AUTO) 0.7 10^3/uL (0.0-1.0); MONOCYTES % (AUTO) 17.5 %; NEUTROPHILS # (AUTO) 2.8 10^3/uL (1.5-6.6); NEUTROPHILS % (AUTO) 70.1 %; PLT - PLATELET COUNT 98 10^3/uL (130-450); RED BLOOD COUNT 3.22 10^6/uL (4.70-6.10); RED CELL DISTRIBUTION WIDTH 21.7 % (12.0-15.0)
[2020-05-26] MEDS ORDERED: SODIUM CHLORIDE FLUSH 0.9% 10 ML SYRINGE ONE (13:20)
--- NOTE | 2020-05-26 16:43 | Ultrasound Report ---
PROCEDURE: Abdominal Paracentesis INDICATIONS: ASCITES TECHNIQUE: The indications, alternatives, benefits, risks, and complications of the procedure were explained to the patient. Written informed consent was obtained and placed in the chart. The abdomen and pelvis were examined sonographically, and an appropriate site was chosen for paracentesis. The skin was pre pared and draped in the usual sterile fashion, and 1% lidocaine was infiltrated from the skin down th rough the peritoneal surface. A 19-gauge catheter-covered needle was then introduced into the perito south space, the catheter was advanced and the needle was withdrawn, and thereafter peritoneal fluid w as withdrawn. The catheter was then removed and a dressing was applied. The fluid was discarded if the clinician did not order diagnostic testing of the fluid. COMPARISON: None FINDINGS: Access site: Right lower quadrant Needle: One-Step centesis catheter with introducer needle. Fluid volume and description: 11.6 Fluid sent for diagnostic testing: No Medications: 1% lidocaine for local anaesthesia. Complications: None. IMPRESSION: Successful ultrasound-guided paracentesis. Reviewed by: Sharon Gates MD on 05/26/2020 4:42 PM PDT Approved by: Sharon Gates MD on 05/26/2020 4:42 PM PDT Station ID: [id number]
== END 2020-05-26 09:54 | disposition home or self-care (01) ==
LOC: DI 09:53
PROVIDERS: ATTEND Family Medicine
DX: K70.31 Alcoholic cirrhosis of liver with ascites (principal)
CPT/HCPCS: 36415; 49083; 85025

== ENCOUNTER 2020-05-27 18:55 | Outpatient (CLI) | payer MEDICARE | END 2020-05-27 18:56 | disposition EMS.NT | LOC: EMS 18:55 | PROVIDERS: ATTEND Surgery | DX: R42 Dizziness and giddiness (principal) ==

== ENCOUNTER 2020-05-28 08:49 | Outpatient (CLI) | payer MEDICARE | END 2020-05-28 08:50 | disposition home or self-care (01) | LOC: LAB 08:49 | PROVIDERS: ATTEND Radiology Vascular & Interventional Radiology | DX: Z01.812 Encounter for preprocedural laboratory examination (principal); Z20.828 Contact with and (suspected) exposure to other viral communicable diseases; K70.31 Alcoholic cirrhosis of liver with ascites ==

== ENCOUNTER 2020-06-07 05:26 | Outpatient (CLI) | payer MEDICARE | END 2020-06-07 05:27 | disposition EMS.NT | LOC: EMS 05:26 | PROVIDERS: ATTEND Surgery | DX: R53.1 Weakness (principal) ==